=== PATIENT | male | born 1960 | race Caucasian/White ===

== ENCOUNTER → 2018-01-29 23:12 | Outpatient (CLI) | payer MEDICAID, SELFPAY ==
[2017-01-11 12:02] VITALS: BMI 32.8
[2018-01-01 07:18] VITALS: BP 177/105; BMI 37.5
== END ==
PROVIDERS: Visit Provider Internal Medicine Critical Care Medicine
DX: G47.10 Hypersomnia, unspecified (principal)
CPT/HCPCS: 95810

== ENCOUNTER → 2018-02-06 08:53 | Outpatient (CLI) | payer MEDICAID, SELFPAY ==
[2017-01-11 12:02] VITALS: BMI 32.8
[2018-01-01 07:18] VITALS: BP 177/105; BMI 37.5
[2018-02-06 09:23] VITALS: PULSE 102; PULSE 104; PULSE 111; PULSE 114; PULSE 115; PULSE 116; PULSE 131; O2SAT 94; O2SAT 95; O2SAT 96
--- NOTE | 2018-02-06 12:01 | WT_ITS ---
PSN 6 Minute Walk Test - 6 Minute Walk Test 6 Minute Walk Test: 6 Minute Walk Test PSN:6-Minute Walk Test Start: 02/06/18 09: 23 Freq: Status: Active Protocol: [id number] Document 02/06/18 09:23 RUPERTO (Rec: 02/06/18 09:26 RUPERTO [id number]) 6 Minute Walk Test Date Performed 02/06/18 Time Performed 09:00 Height 5 ft 9 in Weight: 243 lb Weight in Pounds 243.[address]: Valdo Jha Assistive device used: None Pre-test Oxygen Delivery Method Room Air Pulse Ox (%) 94 Pulse Rate (60-100 beats/min) 104 H Dyspnea Matthias Scale (0-10) 0.5 Exertion Matthias Scale (6-20) 6 1st minute Oxygen Delivery Method Room Air Pulse Ox (%) 95 Pulse Rate (60-100 beats/min) 131 H 2nd minute Oxygen Delivery Method Room Air Pulse Ox (%) 94 Pulse Rate (60-100 beats/min) 116 H 3rd minute Oxygen Delivery Method Room Air Pulse Ox (%) 94 Pulse Rate (60-100 beats/min) 114 H 4th minute Oxygen Delivery Method Room Air Pulse Ox (%) 94 Pulse Rate (60-100 beats/min) 111 H 5th minute Oxygen Delivery Method Room Air Pulse Ox (%) 94 Pulse Rate (60-100 beats/min) 116 H 6th minute Oxygen Delivery Method Room Air Pulse Ox (%) 94 Pulse Rate (60-100 beats/min) 115 H Dyspnea Matthias Scale (0-10) 3 Exertion Matthias Scale (6-20) 12 Post-test Oxygen Delivery Method Room Air Pulse Ox (%) 96 Pulse Rate (60-100 beats/min) 102 H Full Laps Walked 16 Partial Lap, Number of Tiles Walked 12 Total Distance Walked (ft) 956 - Interpretation Interpretation: The patient ambulated 956 feet over the course of 6 minutes on room air without assistive devices or breaks. Pretesting oxygen saturation was noted to be 94% on room air. With ambulation, the rebecca oxygen saturation was 94%. The patient did develop physiologic tachycardia with exertion, suggestive of deconditioning. There was no evidence of a significant exertional oxygen desaturation. - Recommendations Recommendations: There is no indication for the use of supplemental oxygen at this time.
== END ==
PROVIDERS: Visit Provider Internal Medicine Critical Care Medicine
DX: R06.09 Other forms of dyspnea (principal); F17.200 Nicotine dependence, unspecified, uncomplicated
CPT/HCPCS: 94618

== ENCOUNTER → 2018-02-07 08:56 | Outpatient (CLI) | payer MEDICAID, SELFPAY ==
[2017-01-11 12:02] VITALS: BMI 32.8
[2018-01-01 07:18] VITALS: BP 177/105; BMI 37.5
--- NOTE | 2018-02-07 13:35 | PFT ---
INTRODUCTION: Patient is a 57-year-old male currently under the care of myself that presents for pulmonary function testing secondary to a diagnosis of dyspnea. Respiratory therapy reports good patient effort reports no other concerns. Bronchodilators were used during testing. INTERPRETATION: Forced expiration spirometry demonstrates no evidence of a large airways obstructive ventilatory defect. There was no significant response to aerosolized bronchodilators, based upon strict ATS criteria. Spirogram is of good quality and plateau gradually. Body plethysmography was performed and reveals lung volumes to be within normal limits. Diffusing capacity by single breath CO is at the lower limits of normal at 72% of predicted. IMPRESSION: These pulmonary function studies are essentially within normal limits. Diffusing capacity is at the lower limits of normal currently.
== END ==
PROVIDERS: Visit Provider Internal Medicine Critical Care Medicine
DX: R06.09 Other forms of dyspnea (principal); F17.200 Nicotine dependence, unspecified, uncomplicated
CPT/HCPCS: 94060; 94726; 94729

== ENCOUNTER → 2018-02-12 20:06 | Outpatient (CLI) | payer MEDICAID, SELFPAY ==
[2017-01-11 12:02] VITALS: BMI 32.8
[2018-01-01 07:18] VITALS: BP 177/105; BMI 37.5
== END ==
PROVIDERS: Visit Provider Internal Medicine Critical Care Medicine
DX: G47.33 Obstructive sleep apnea (adult) (pediatric) (principal)
CPT/HCPCS: 95811

== ENCOUNTER → 2018-04-17 07:43 | Day surgery (SDC) | payer MEDICAID, SELFPAY ==
[2017-01-11 12:02] VITALS: BMI 32.8
--- NOTE | 2018-04-12 12:15 | RAD_ITS ---
STUDY: X-RAY CHEST REASON FOR EXAM: Male, 57 years old. Chest pain TECHNIQUE: Frontal and lateral views of the chest COMPARISON: 01/10/2017 FINDINGS: The lungs are clear. There are no pleural effusions. There is no pneumothorax. The heart is normal in size. The patient is status post sternotomy. There are degenerative changes noted in the spine. RAD/Chest PA and Lateral IMPRESSION: No acute thoracic pathology. Electronically Signed: Natalio Kapoor, at 16:52 EDT Tel , Service support ,
[2018-04-12 12:54] LABS: Prothrombin Time (Protime)PT. 13.4 SECONDS (11.7-14.9)
[2018-04-12 13:31] LABS: AST(SGOT) 61 U/L (15-37); Alanine Aminotransfer ALT/SGPT 74 U/L (16-61); Albumin, Serum 4.1 g/dL (3.2-5.0); Alkaline Phosphatase 47 U/L (45-117); Anion Gap 8 (5-15); BUN 8 mg/dL (7-18); Bilirubin, Direct 0.08 mg/dL (0.00-0.30); Calcium,Total 8.6 mg/dL (8.5-10.1); Chloride 103 mmol/L (98-107); Cholesterol 164 mg/dL (200); Creatinine, Serum 0.88 mg/dL (0.70-1.30); EST Glomerular Filtration Rate 95 mL/min (>60); Est Glom Filt Rate - Afr Amer 115 mL/min (>60); Globulin 3.4 g/dL (2.2-4.2); Glucose 97 mg/dL (74-106); High Density Lipoprotein 51 mg/dL; Potassium 4.2 mmol/L (3.5-5.1); Protein, Total 7.5 g/dL (6.4-8.2); Sodium Level 135 mmol/L (136-145); Triglycerides 91 mg/dL; Very Low Density Lipoprotein 18 mg/dL (5-40)
[2018-04-16 12:28] VITALS: BMI 37.5
[2018-04-17 08:10] LABS: Absolute Lymphocyte Count 0.86 X10^3/ul (0.83-4.51); Absolute Neutrophil Count 4.8 X10^3/uL (2.0-7.7); Basophil# 0.04 X10^3/uL; Basophil% 0.6 % (0-1); Eosinophil# 0.07 X10^3/uL; Eosinophils% 1.1 % (0-5); Hematocrit 45.4 % (40-54); Hemoglobin 15.9 g/dl (13.0-16.5); Lymphocyte # 0.86 X10^3/ul (4.0); Lymphocyte % 13.3 % (19-41); Mean Corpuscular Hgb 33.9 pg (27.0-32.0); Mean Corpuscular Volume 96.8 fL (80-94); Mean Platelet Vol. 9.3 fl (6.2-12.0); Monocyte# 0.73 X10^3/uL; Monocyte% 11.3 % (0-10); Neutrophil # 4.75 X10^3/uL (2.7-7.7); Neutrophil % 73.5 % (47-70); Platelet Count 183 K/mm3 (150-450); RBC Distribution Width CV 13.6 % (11.6-14.6); RBC Distribution Width SD 47.5 fl (35.1-43.9); Red Blood Count 4.69 M/mm3 (4.6-6.2); White Blood Count 6.5 K/mm3 (4.4-11.0)
[2018-04-17 08:20] LABS: POSITIVE COUNT NO; POSITIVE DIFFERENTIAL NO; POSITIVE MORPHOLOGY NO
[2018-04-17 11:21] LABS: Blood Gas Specimen Type VEN; VBG BASE EXCESS -2 mmol/L (-1.0-3.5); VBG Bicarbonate 23 mmol/L (22-26); VBG Oxygen Content 24 mmol/L (23-33); VBG PO2 36 mmHg (25-40); VBG SO2 70 % (50-70); VBG pCO2 36.3 mmHg (41-51); VBG pH 7.41 (7.32-7.42)
[2018-04-17 11:21] LABS: Blood Gas Specimen Type VEN; VBG BASE EXCESS -2 mmol/L (-1.0-3.5); VBG Bicarbonate 23 mmol/L (22-26); VBG Oxygen Content 24 mmol/L (23-33); VBG PO2 34 mmHg (25-40); VBG SO2 65 % (50-70); VBG pCO2 36.9 mmHg (41-51)
[2018-04-17 11:21] LABS: Base Excess -1 mmol/L (-2 to +2); Blood Gas Specimen Type ART; PO2 68 mmHG (75-100); SO2 94 % (95-99); Total Carbon Dioxide 24 mmol/L; pCO2 32.9 mmHg (35-45); pH 7.45 (7.35-7.45)
--- NOTE | 2018-04-17 11:21 | CL.D_ITS ---
Patient Name: SAVAGE VELASCO Study Date: 04/17/2018 Performing: Lj Francisco MD Ht: 68.89 inches 175 cm : 1960 Wt: 253.53 lbs 115 kg Age: 57 Gender: male BSA: 2.28 PROCEDURE(S) PERFORMED PB35-CIJ/LHC/COR/LV/CABG CLINICAL PROFILE AND INDICATIONS Indications: New Onset Angina <= 2 months, Stable Known CAD Heart Failure: None Stress/Imaging Stress/Image Study Performed: No Angina Classification Anginal Classification w/in 2 Weeks: CCS I CAD Presentations: Unstable angina. Comorbidities/Risk Factors: Current/Recent Smoker (< 1year) Hypertension Dyslipidemia Prior CABG CONCLUSIONS Triple vessel CAD of the LM, LCX and RCA Widely patent HAMILTON to LAD with large chest wall branch that feeds intercostal arteries. Widely patent SVG to OM. Previously known occluded SVG to RCA. 2 distinct lesions noted in [place] proximal RCA giving rise to small acute marginal branch. Doubtful benefit with PCI to this vessel. Adequate L to R collaterals from septal perforators to PDA. The patient has normal pulmonary hemodynamics. No evidence pericardial constrictive or restrictive physiology. RECOMMENDATIONS Management as per referring Lifestyle Director Medical therapy vs. Percutaneous Intervention of RCA leading to acute marginal branch. Pt declines a t this time. Would not pursue coiling of chest wall branch of the HAMILTON at this time. Would not pursue PCI of LM as this may compromise flow down HAMILTON to LAD. DESCRIPTION OF PROCEDURE The patient arrived to the procedure lab. The risks and benefits of the procedure as well as a full d escription of our services here and current unavailability of surgical backup were fully explained to the patient and/or their significant other prior to the catheterization. The Timeout was completed, verifying the correct patient and procedure. The patient's procedural site was prepped and draped in the usual fashion. Local anesthetic was given subcutaneously to right groin region with Lidocaine 2%. Using a modified Seldinger technique, arterial access was obtained via the right femoral artery, a 4 Fr sheath was inserted Venous access was obtained via the right femoral vein, a 7Fr sheath was insert ed. Left Ventriculography was performed in BRADY projection using a 4 Fr. Pigtail catheter. A 7Fr therm al dilution catheter was inserted and right heart pressures were recorded, it was then advanced to PA position for cardiac outputs. Thermal dilution cardiac outputs were then recorded. O2 saturations we re then obtained. The Thermal dilution catheter was then removed. LV to AO pullback pressures were th en recorded. Left Coronary Artery selective angiography was performed in multiple views using a 4 Fr. JL5 catheter. Right Coronary Artery selective angiography was then performed in multiple views using a 4 Fr. 3DRC catheter. Saphenous Vein graft to the OM 1 selective angiography was performed in multi ple views using a 4 Fr. 3DRC catheter. Left internal mammary artery graft to the LAD selective angiog scooby was performed in multiple views using a 4 Fr. 3DRC catheter.The arterial sheath was pulled and manual compression applied until hemostasis is achieved. CORONARY ANGIOGRAPHY DOMINANCE: Right Dominant LEFT HEART ASSESSMENT Left Ventricular Ejection Fraction: by LV Gram 65 % Normal LV wall motion Normal Left Ventricular systolic function Normal Left Ventricular End Diastolic Pressure RIGHT HEART ASSESSMENT Thermal CO: 7.99 Thermal CI: 3.5 Eduarda CO: 5.39 Eduarda CI: 2.36 PW: 05/30 2 PA: /5 15 RV: 30/-2 3 RA: 01/25 0 PVR: 130 Aortic Valve Area: >3.50 Aortic Valve Index: 1.54 Aortic Valve Mean Gradient: 24.3 Mitral Valve Area: >3.50 Mitral Valve index: 1.54 Mitral Valve Mean Gradient: 18.8 LEFT MAIN: 75 % Stenosis LEFT ANTERIOR DECENDING ARTERY: Mild luminal irregularities less than 30% CIRCUMFLEX ARTERY: MID CIRC: is occluded RIGHT CORONARY ARTERY: MID RCA: is occluded GRAFTS: HAMILTON graft to the LAD is patent Saphenous Vein graft to the Mid CIRC is patent Saphenous Vein graft to the RCA is totally occluded COLLATERAL FLOW: Collateral flow from Left to Right COMPLICATIONS No Complications PROCEDURE MEDICATIONS Versed 1 mg IV SUMMARY OF HEMODYNAMIC DATA Time AIR REST ECG 08:11:55 RA 3/2 (0) 10:44:37 RV 30/-2, 3 10:44:55 PW 05/30 (2) PV 10:45:31 PA 20/04 (15) PA 10:45:45 LV 145/-27, 4 10:50:13 LV 146/-27, 4 10:50:20 LV 155/-24, 7 10:50:42 PW 07/03 (5) 10:50:42 LV 146/-24, 4 10:51:15 RV 29/-3, 1 10:51:15 LV 149/-25, 4 10:51:21 RV 29/-3, 1 10:51:21 LVp 163/-27, 7 10:54:26 AOp 163/79 (113) 10:54:31 AO 130/78 (102) SA 10:56:12 Valve Area (c P-P/ms Time AIR REST Mitral 3.50 18.8 mn/129 ms 10:50:42 Aortic 3.50 24.3 mn/114 ms 10:54:26 Type SV CO (l/m) CI (l/m/ HR Time AIR REST Thermal 99.90 7.99 3.50 80 08:11:55 Eduarda 67.40 5.39 2.36 80 08:11:55 Label % O2 Pres/Loc Time AIR REST AO 94 PV 11:00:57 PA 68 PA 11:01:10 Signed By Lj Francisco MD On 04/17/2018 11:20:23 Lj Francisco MD
== END ==
PROVIDERS: Visit Provider Internal Medicine Cardiovascular Disease
DX: I25.708 Atherosclerosis of coronary artery bypass graft(s), unspecified, with other forms of angina pectoris (principal); R94.39 Abnormal result of other cardiovascular function study; E66.9 Obesity, unspecified; Z68.37 Body mass index [BMI] 37.0-37.9, adult; E78.5 Hyperlipidemia, unspecified; I10 Essential (primary) hypertension; Z95.1 Presence of aortocoronary bypass graft; Z79.82 Long term (current) use of aspirin; Z79.899 Other long term (current) drug therapy; F17.200 Nicotine dependence, unspecified, uncomplicated
CPT/HCPCS: 36415; 71046; 80048; 80061; 80076; 82803; 85025; 85610; 93461; 99152; 99153; J7040; J7050; Q9967; A4216; C1751; C1769; C1894

== ENCOUNTER → 2018-04-25 14:03 | Outpatient (CLI) | payer MEDICAID, SELFPAY ==
[2017-01-11 12:02] VITALS: BMI 32.8
--- NOTE | 2018-04-25 14:05 | ECHOD_ITS ---
Reason For Study: S/P CABG Procedure This was a 2D Doppler, Color Flow transthoracic echocardiogram. Contrast injection was performed. Exam performed in department. Left Ventricle Normal size and thickness. The estimated ejection fraction is 65 %. Stage 2 diastolic dysfunction. No regional wall motion abnormalities noted. Right Ventricle Mildly dilated right ventricle. Normal systolic function. Atria Normal left atrium. Normal right atrium. Normal atrial septum. Mitral Valve The mitral valve is structurally normal. No prolapse or stenosis seen. Tricuspid Valve Normal tricuspid valve. Trivial tricuspid valve insufficiency. Right ventricular systolic pressure estimated to be 28 mmHg. Aortic Valve Trisinus/trileaflet aortic valve. Pulmonic Valve Normal pulmonic valve. Great Vessels Normal aortic root. Normal arch. Normal inferior vena cava. Inferior vena cava collapse with sniff. Pericardium/Pleural No pericardial effusion. Medication 22 gauge I.V. with prn adaptor inserted into right arm. Diluted definity 4ml given slow IV push to enhance endocardial definition. MMode/2D Measurements & Calculations LVIDd: 3.9 cm IVSd: 0.99 cm Ao root diam: 3.5 cm LVIDs: 2.6 cm LVPWd: 0.82 cm LA dimension: 4.0 cm RVDd: 4.1 cm FS: 32.2 % LAV(MOD-bp): 49.5 ml EDV(MOD-sp4): 100.7 ml EDV(MOD-sp2): 72.3 ml LAV(MOD-bp) Indexed: 21.6 ml/m2 ESV(MOD-sp4): 28.8 ml EF(MOD-sp2): 55.9 % LAV(MOD-sp2): 52.6 ml EF(MOD-sp4): 71.4 % LAV(MOD-sp4): 45.6 ml SV(MOD-sp4): 71.9 ml SV(MOD-sp2): 40.4 ml LA A4 area: 16.9 cm2 RA A4 area: 14.0 cm2 Doppler Measurements & Calculations MV E max lester: 104.0 cm/sec Lat Peak E' Lester: 12.1 cm/sec Med Peak E' Lester: 7.8 cm/sec MV A max lester: 72.6 cm/sec E/E' lat: 8.6 E/E' med: 13.3 MV E/A: 1.4 Ao V2 max: 126.7 cm/sec LV V1 max: 105.0 cm/sec PA V2 max: 103.4 cm/sec Ao max P.4 mmHg LV V1 max P.4 mmHg PI end-d lester: 122.6 cm/sec TR max lester: 240.6 cm/sec TR max P.2 mmHg Interpretation Summary The estimated ejection fraction is 65 %. Stage 2 diastolic dysfunction. Mildly dilated right ventricle. Trivial tricuspid valve insufficiency. Right ventricular systolic pressure estimated to be 28 mmHg. Compared to echo rport dated 01/11/2017, LV function and wall motion abnormalities have normalized. Ordering Physician: Lj Francisco Referring Physician: [facility] Performed By: Trinity Landin, CHRISTIE, RVT
== END ==
PROVIDERS: Visit Provider Internal Medicine Cardiovascular Disease
DX: I25.798 Atherosclerosis of other coronary artery bypass graft(s) with other forms of angina pectoris (principal); R06.09 Other forms of dyspnea
CPT/HCPCS: 93306; Q9957; A4216; C8929

== ENCOUNTER 2018-12-13 09:32 | Emergency (ER) | payer MEDICAID, SELFPAY ==
[2017-01-11 12:02] VITALS: BMI 32.8
[2018-11-22 10:11] VITALS: BMI 36.6
[2018-12-13 09:34] VITALS: BP 158/80; PULSE 85; RESP 18; TEMP 36.4; O2SAT 98; BMI 37.0
--- NOTE | 2018-12-13 09:44 | RAD_ITS ---
STUDY: X-RAY - RIGHT FOOT CLINICAL: Male, 57 years old. 4 day history of pain along the first metatarsal phalangeal joint. TECHNIQUE: 3 view(s) of the foot. COMPARISON: None. FINDINGS: There is an enthesophyte involving the posterior superior calcaneus at the site of insertion of the Achilles tendon. Small plantar spur. Normal visualized subtalar, talonavicular, calcaneocuboid, tarsal and tarsometatarsal articulations. Normal metatarsi. There is degenerative arthrosis of the metatarsophalangeal joint of the hallux with a hallux valgus deformity. Normal tibial and fibular sesamoid bones. Normal interphalangeal joint of the great toe. Normal phalanges of the great toe. Normal second through fifth metatarsophalangeal joints. Normal interphalangeal joints and phalanges of the lesser toes. The soft tissue structures are unremarkable. RAD/Foot min 3 Views IMPRESSION: Degenerative changes at the first metatarsophalangeal joint. Electronically Signed: Jake Oquendo MD at 10:11 EST Tel [phone], Service support ,
[2018-12-13] MEDS: HYDROcodone Bitartrate/Apap 5/325 Tablet PO (09:51)
--- NOTE | 2018-12-13 10:33 | ED.DCSUM_ITS ---
- ER Visit Summary Date of Service: 12/13/18 Chief Complaint: Foot pain History of Present Illness: The patient is a 57 M with right foot pain increasing over the past 3-4 days. The pain is in his right foot and starts near the base of his great toe and radiates up into the dorsal aspect of the medial side of his foot. He had similar symptoms in the past on his left foot and was told it was from arthritis. He denies any history of gout. Denies any history of skin breaks or cellulitis in the area, but he has noticed some redness and warmth. He denies any history of DVTs. He currently takes aspirin and Plavix for history of coronary disease. No fevers or systemic symptoms. Physical Examination: Afebrile and vital signs unremarkable. Alert and oriented. No acute distress. Inspection of his right foot shows some erythema and very mild edema proximal to the right great toe over his medial and dorsal foot, the distal half of his foot. Toenail appears unremarkable. Skin is intact. He has no deformities. Good range of motion. Good capillary refill and pulses. Calves soft and supple. Test Results: X-rays show degenerative changes. Emergency Department Course and Treatment: Patient may have arthritis. He may be developing cellulitis. Based on his exam, I felt that gout and septic arthropathy would be less likely. Toenails okay. Nothing to suggest DVT. Circulation good. X-rays show degenerative changes. I will have him continue his anti- inflammatories. We will add a short course of Percocet. He tolerated this well in the past and had only one prescription in 2017. We will also cover for cellulitis with antibiotics. Monitor for new or worsening issues. Return for new or worsening issues. Treatment Plan: Discharge Disposition: Discharge Impression: 1. Right foot pain This note was generated with [employer] dictation software. It may contain incorrect words, spelling, and punctuation that were not noted in review of the chart prior to signing ED Disposition - Plan for ED Patient: Chief Complaint: Lower Extremity Injury Referrals: Nelson Boone MD [Primary Care Provider] -
--- NOTE | 2018-12-13 10:35 | ED.DEP ---
ED Disposition - Plan for ED Patient: Chief Complaint: Lower Extremity Injury Instructions: ED Infec Skin Cellulitis Prescriptions: Oxycodone HCl/Acetaminophen [Percocet 5/325] 1 tab PO Q6H PRN PRN 3 Days #12 tab PRN Reason: Pain Cephalexin [Keflex] 500 mg PO Q6 #28 cap Smz/Tmp Ds [Bactrim Ds] 1 tab PO BID #14 tab Referrals: Nelson Boone MD [Primary Care Provider] -
--- OUTSIDE RECORDS SUMMARY | 2019-02-16 17:16 | XMS RPT_ITS ---
:1960 Author Organization OHIP Support Name Relationship Address Phone BONTEMPT, KAREN Unavailable [address] + [place] [address] UE Unavailable Unavailable Unavailable BONTEMPT, KAREN Unavailable [address] + [place] [address] UE Unavailable Unavailable Unavailable BONTEMPT, KAREN Unavailable [address] + [place] [address] UE Unavailable Unavailable Unavailable BONTEMPT, KAREN Unavailable [address] + [place] [address] UE Unavailable Unavailable Unavailable BONTEMPT, KAREN Unavailable [address] + [place] [address] UE Unavailable Unavailable Unavailable BONTEMPT, KAREN Unavailable [address] + [place] [address] UE Unavailable Unavailable Unavailable BONTEMPT, KAREN Unavailable [address] + [place] [address] UE Unavailable Unavailable Unavailable BONTEMPT, KAREN Unavailable [address] + [place] [address] UE Unavailable Unavailable Unavailable BONTEMPT, KAREN Unavailable [address] + [place] [address] UE Unavailable Unavailable Unavailable BONTEMPT, KAREN Unavailable [address] + [place] [address] UE Unavailable Unavailable Unavailable BONTEMPT, KAREN Unavailable [address] + [place] [address] UE Unavailable Unavailable Unavailable BONTEMPT, KAREN Unavailable [address] + [place] [address] UE Unavailable Unavailable Unavailable BONTEMPT, KAREN Unavailable [address] + [place] [address] UE Unavailable Unavailable Unavailable BONTEMPT, KAREN Unavailable [address] + [place] [address] UE Unavailable Unavailable Unavailable BONTEMPT, KAREN Unavailable [address] + [place] [address] UE Unavailable Unavailable Unavailable BONTEMPT, KAREN Unavailable [address] + [place] [address] UE Unavailable Unavailable Unavailable BONTEMPT, KAREN Unavailable [address] + [place] [address] UE Unavailable Unavailable Unavailable BONTEMPT, KAREN Unavailable [address] + [place] [address] UE Unavailable Unavailable Unavailable BONTEMPT, KAREN Unavailable [address] + [place] [address] UE Unavailable Unavailable Unavailable BONTEMPT, KAREN Unavailable [address] + [place] [address] UE Unavailable Unavailable Unavailable BONTEMPT, KAREN Unavailable [address] + [place] [address] UE Unavailable Unavailable Unavailable BONTEMPT, KAREN Unavailable [address] + [place] [address] UE Unavailable Unavailable Unavailable BONTEMPT, KAREN Unavailable [address] + [place] [address] UE Unavailable Unavailable Unavailable BONTEMPT, KAREN Unavailable [address] + [place] [address] UE Unavailable Unavailable Unavailable Care Team Providers Name Role Phone LIZ CARMONA (TAX PROFESSIONAL) Attending Unavailable MICHAEL HERNANDEZ Attending Unavailable MICHAEL HERNANDEZ Referring Unavailable MARYMICHAEL STERLING Referring Unavailable MARYMICHAEL E Referring Unavailable MARYMICHAEL STERLING E Referring Unavailable MICHAEL HERNANDEZ Attending Unavailable MICHAEL HERNANDEZ Referring Unavailable MICHAEL HERNANDEZ Referring Unavailable MICHAEL HERNANDEZ Referring Unavailable RUBI TRIANA Attending Unavailable MICHAEL HERNANDEZ Referring Unavailable RUBI TRIANA Admitting Unavailable RUBI TRIANA Attending Unavailable RUBI TRIANA Referring Unavailable MICHAEL HERNANDEZ Attending Unavailable MICHAEL HERNANDEZ Referring Unavailable GARDENIA CANO (WILLAM) Attending Unavailable RUBI TRIANA Referring Unavailable Nahomy Pino Attending Unavailable [place], [place] Referring Unavailable Lj Hurst Attending Unavailable Nelson Boone Primary Care Unavailable Waleska Abreu Attending Unavailable Fito Anna.Debora Attending Unavailable Start[place]man, [place] Referring Unavailable Start[place]man, [place] Primary Care Unavailable Valdo Fito Jha.O. Attending Unavailable Start[place], [place] Primary Care Unavailable Enedina AnnaO. Attending Unavailable Valdo Fito Jha.Debora Referring Unavailable Start[place]man, [place] Primary Care Unavailable Valdo Jha D.O. Attending Unavailable Fito Anna.O. Referring Unavailable Start[place]man, [place] Primary Care Unavailable Katia Chen Attending Unavailable Lj Francisco Attending Unavailable Start[place], [place] Referring Unavailable Start[place]man, [place] Primary Care Unavailable Fito Anna.Jackson. Attending Unavailable Start[place]man, [place] Primary Care Unavailable Lj Francisco Attending Unavailable Start[place]man, [place] Referring Unavailable Start[place]man, [place] Primary Care Unavailable Nahomy Pino Attending Unavailable Start[place]man, [place] Referring Unavailable Start[place]man, [place] Primary Care Unavailable Lj Francisco Attending Unavailable Start[place]man, [place] Referring Unavailable Start[place]man, [place] Primary Care Unavailable Lj Francisco Attending Unavailable Start[place]man, [place] Referring Unavailable Start[place]man, [place] Primary Care Unavailable Lj Francisco Attending Unavailable Start[place]man, [place] Primary Care Unavailable Lj Francisco Referring Unavailable Katia Chen Attending Unavailable Nahomy Pino Attending Unavailable [place], [place] Referring Unavailable Lj Francisco Attending Unavailable Lj Francisco Referring Unavailable [place], [place] Primary Care Unavailable Lj Francisco Attending Unavailable Lj Francisco Attending Unavailable Lj Francisco Referring Unavailable Nahomy Pino Attending Unavailable [place], [place] Referring Unavailable Nahomy Pino Attending Unavailable [place], [place] Referring Unavailable Fito Anna.Jackson. Attending Unavailable Fito Anna.O. Referring Unavailable Valdo Jha D.O. Attending Unavailable Fito nAna.Debora Referring Unavailable PROBLEMS PROBLEMS DATE TYPE CONDITION / CODE ATTENDING STATUS SOURCE 12/13/2018 Unknown M79.671 - Pain in Lj Hurst Active [facility] right foot / Community M79.671(ICD-10) Hospital Repository 11/22/2018 Unknown R06.09 - Other forms Pino Active [place] of dyspnea / Nahomy Community R06.09(ICD-10) Hospital Repository 10/10/2018 Active Presence of coronary KAMILAH, Active Young angioplasty implant RUBI [facility] Main and graft / [place] Z95.5(ICD-10) Repository 08/29/2018 Active Atherosclerotic heart NA Active Irene disease of [facility] Main coronary artery [place] without angina Repository pectoris / I25.10(ICD-10) 08/29/2018 Active Essential (primary) NA Active Irene hypertension / [facility] Main I10(ICD-10) [place] Repository 04/17/2018 Unknown I25.10 - Nolan Lj Active [facility] Atherosclerotic heart Community disease of [facility] coronary artery Repository without angina pectoris / I25.10(ICD-10) 04/17/2018 Unknown E78.5 - Lj Francisco Active [facility] Hyperlipidemia, Community unspecified / Hospital E78.5(ICD-10) Repository 04/12/2018 Unknown I10 - Essential Lj Francisco Active [place] (primary) Community hypertension / Hospital I10(ICD-10) Repository 04/12/2018 Unknown I25.798 - Lj Francisco Active [facility] Atherosclerosis of Community other coronary artery Hospital bypass graft(s) with Repository other forms of angina pectoris / I25.798(ICD-10) 04/12/2018 Unknown Z95.1 - Presence of Lj Francisco Active [facility] aortocoronary bypass Community graft / Z95.1(ICD-10) Hospital Repository 04/12/2018 Unknown I50.9 - Heart Lj Francisco Active [place] failure, unspecified Community / I50.9(ICD-10) Hospital Repository 04/12/2018 Unknown Z98.890 - Other Lj Francisco Active [facility] specified Community postprocedural states Hospital / Z98.890(ICD-10) Repository 01/01/2018 Unknown F17.200 - Nicotine Valdo Jha Active [facility] dependence, D.O. Community unspecified, Hospital uncomplicated / Repository F17.200(ICD-10) PROCEDURES PROCEDURES No Procedure Records FoundRESULTS RESULTS EMERGENCY DEPARTMENT Observed: 12/13/2018 Status: F Source: [place] SUMMARY 3:45 PM [facility] [place] REPOSITORY [facility] Medical Records Department [address] [place] [address] Emergency Department Summary 12/13/18 1028 MR#: [id number] Acct: [id number] Name: SAVAGE ANDERS II Rep #: [id number] : 1960 57 From: Lj Hurst MD PCP: Nelson Boone MD Status: DEP ER - ER Visit Summary Date of Service: 12/13/18 Chief Complaint: Foot pain History of Present Illness: The patient is a 57 M with right foot pain increasing over the past 3-4 days. The pain is in his right foot and starts near the base of his great toe and radiates up into the dorsal aspect of the medial side of his foot. He had similar symptoms in the past on his left foot and was told it was from arthritis. He denies any history of gout. Denies any history of skin breaks or cellulitis in the area, but he has noticed some redness and warmth. He denies any history of DVTs. He currently takes aspirin and Plavix for history of coronary disease. No fevers or systemic symptoms. Physical Examination: Afebrile and vital signs unremarkable. Alert and oriented. No acute distress. Inspection of his right foot shows some erythema and very mild edema proximal to the right great toe over his medial and dorsal foot, the distal half of his foot. Toenail appears unremarkable. Skin is intact. He has no deformities. Good range of motion. Good capillary refill and pulses. Calves soft and supple. Test Results: X-rays show degenerative changes. Emergency Department Course and Treatment: Patient may have arthritis. He may be developing cellulitis. Based on his exam, I felt that gout and septic arthropathy would be less likely. Toenails okay. Nothing to suggest DVT. Circulation good. X-rays show degenerative changes. I will have him continue his anti-inflammatories. We will add a short course of Percocet. He tolerated this well in the past and had only one prescription in 2017. We will also cover for cellulitis with antibiotics. Monitor for new or worsening issues. Return for new or worsening issues. Treatment Plan: Discharge Disposition: Discharge Impression: 1. Right foot pain This note was generated with [employer] dictation software. It may contain incorrect words, spelling, and punctuation that were not noted in review of the chart prior to signing ED Disposition - Plan for ED Patient: Chief Complaint: Lower Extremity Injury Referrals: Nelson Boone MD [Primary Care Provider] - What to do if you have Problems For any increased pain, shortness of breath, bleeding, nausea or vomiting, chest pain, or any unexpected problems, contact your Primary Care Provider. Call [facility] ([phone]) or report to the closest Emergency Room. Call 911 if necessary. 12/13/18 1547 <Electronically signed by Lj Hurst MD> Date Lj Hurst MD Cosigner Signature (If Indicated): Date CC: Nelson Boone MD DISCHARGE INSTRUCTION Observed: 12/13/2018 Status: F Source: [place] 3:45 PM [facility] REPOSITORY [facility] Medical Records Department [address] [place] [address] Discharge Instruction 12/13/18 1035 MR#: [id number] Acct: [id number] Name: SAVAGE ANDERS II Rep #: [id number] : 1960 57 From: Lj Hurst MD PCP: Nelson Boone MD Status: DEP ER ED Disposition - Plan for ED Patient: Chief Complaint: Lower Extremity Injury Instructions: ED Infec Skin Cellulitis Prescriptions: Oxycodone HCl/Acetaminophen [Percocet 5/325] 1 tab PO Q6H PRN PRN 3 Days #12 tab PRN Reason: Pain Cephalexin [Keflex] 500 mg PO Q6 #28 cap Smz/Tmp Ds [Bactrim Ds] 1 tab PO BID #14 tab Referrals: Nelson Boone MD [Primary Care Provider] - What to do if you have Problems For any increased pain, shortness of breath, bleeding, nausea or vomiting, chest pain, or any unexpected problems, contact your Primary Care Provider. Call [facility] ([phone]) or report to the closest Emergency Room. Call 911 if necessary. 12/13/18 1547 <Electronically signed by Lj Hurst MD> Date Lj Hurst MD Cosigner Signature (If Indicated): Date CC: Nelson Boone MD FOOT MIN 3 VIEWS Observed: 12/13/2018 Status: F Source: [place] 9:45 AM [facility] [place] REPOSITORY [facility] Imaging Services [address] [place] [address] Foot min 3 Views MR#: [id number] Acct: [id number] Name: SAVAGE ANDERS II Rep #: [id number] : 1960 M 57 From: Jkae Oquendo MD PCP: Nelson Boone MD Status: REG ER Study: Foot min 3 Views Date of Exam: 12/13/18 Exam# [id number] Ordering Dr: Lj Hurst MD STUDY: X-RAY - RIGHT FOOT CLINICAL: Male, 57 years old. 4 day history of pain along the first metatarsal phalangeal joint. TECHNIQUE: 3 view(s) of the foot. COMPARISON: None. FINDINGS: There is an enthesophyte involving the posterior superior calcaneus at the site of insertion of the Achilles tendon. Small plantar spur. Normal visualized subtalar, talonavicular, calcaneocuboid, tarsal and tarsometatarsal articulations. Normal metatarsi. There is degenerative arthrosis of the metatarsophalangeal joint of the hallux with a hallux valgus deformity. Normal tibial and fibular sesamoid bones. Normal interphalangeal joint of the great toe. Normal phalanges of the great toe. Normal second through fifth metatarsophalangeal joints. Normal interphalangeal joints and phalanges of the lesser toes. The soft tissue structures are unremarkable. RAD/Foot min 3 Views IMPRESSION: Degenerative changes at the first metatarsophalangeal joint. Electronically Signed: Jake Oquendo MD at 10:11 EST Tel [phone], Service support , CC: Nelson Boone MD; Lj Hurst MD Honey Extractor: Signed PULMONARY VISIT REPORT Observed: 11/22/2018 Status: F Source: [place] 2:49 PM [facility] REPOSITORY [facility] Pulmonary Medicine [address] [place] [address] OFFICE VISIT Date of Service: 11/22/18 MR#: [id number] Acct: [id number] Name: SAVAGE ANDERS II Rep #: [id number] : 1960 Provider: Nahomy Pino Age/Sex: 57/M Location: [facility] [place] Status: Signed Assessment AND Plan 1. Restless legs syndrome (RLS) G25.81 Plan Stable. Continue current dose of ropinirole. Follow-up with Dr. Jha in 6 months. 2. DAVID (obstructive sleep apnea) G47.33 Plan Patient is using and benefiting from Pap therapy. No indication for titration study at this time. Continue to encourage weight loss. Contact the office for any new or worsening symptoms in the meantime. Follow-up in 6 months. 3. Class 2 severe obesity due to excess calories with serious comorbidity and body mass index (BMI) of 36.0 to 36.9 in adult E66.01 Plan Continue to encourage weight loss. 4. Cigarette nicotine dependence in remission F17.211 Plan Aerated. A 12 minute, face to face discussion occurred with the patient regarding smoking cessation. Risks of continued tobacco abuse was covered such as heart disease, stroke, cancer, and emphysema, among others. The many health benefits quitting, was discussed and the patient was educated on the fact that smokers lose an average of 10 minutes of life for every cigarette smoked. We discussed the pathophysiology of smoking addiction and its dual addictive components of nicotine addiction and psychological addiction. Nicotine replacement was discussed. We also talked about medications that may be helpful such as Bupropion (Wellbutrin) or Varenicline (Chantix). Advise was also offered on preoccupying the mind during trigger times with activities such as chewing gum, sucking on hard candy or utilizing their hands with an activity such as drawing. Currently the patient is smoking one quarter Ppd. At this time, SAVAGE elects to quit cold turkey, however I suspect he remains in the pre-contemplative stage. We will continue to monitor the tobacco abuse and encourage cessation. You may call the free hotline 0-785-BAFXNOW. People who use this line are THREE times more likely to remain smoke free. Plan Detail Other Orders Orders: Follow Up 6 Months (DMB) HPI 3 M FU: Chief Complaint: None HPI Comments Details: This is a 57 year old M, here to follow up for sleep apnea. Current use of pressure support therapy is on average of 6 hours per night with current settings of 14/10 cmH2O. SAVAGE denies any daytime somnolence, dry mouth in the morning, nocturia, snoring through the mask, morning headaches or difficulty with mask leaks. SAVAGE reports feeling rested in the morning and is benefitting from current therapy. Compliance report was reviewed and shows 83% compliance, AHI is controlled at an average of 1.6 events per hour and leaks do not appear to be a consistent problem. He denies any cough, sputum production or hemoptysis. He denies any shortness of breath during conversation, at rest or even on exertion. He denies any fever, chills or body aches. He denies any wheezing, chest tightness, chest pain or palpitations. He is not currently on any inhalers. States that he previously was tried on a rescue inhaler but it did not provide him with any relief use is 1. Unfortunately, he continues to smoke 5-7 cigarettes daily. He has not been seen in the ED or urgent care for respiratory illnesses since his last office visit. He has not required any antibiotics or prednisone for any breathing problems. Intake Vital Signs12/28/18 Height 5 ft 9 in 11/22/18 Weight: 248 lb 11/22/18 Body Mass Index (BMI) 36.6 11/22/18 Blood Pressure 146/88 H Intake Visit Reasons: 3 M FU [facility] [place] [place] Vendor: [employer] Accompanied by: Self Allergies No Known Allergies Allergy (Verified 11/22/18 09:24) Medications Aspirin 81 mg PO DAILY@0800 10/27/16 [History Confirmed 11/22/18] Ergocalciferol [Vitamin D] 50,000 unit PO PEREZ 07/25/17 [History Confirmed 11/22/18] atorvastatin 80 mg tablet 80 mg PO QHS #30 tab 12/03/17 [Rx Confirmed 11/22/18] nitroglycerin 0.4 mg sublingual tablet 0.4 mg SUBLINGUAL Q5M PRN #25 tab 04/11/18 [Rx Confirmed 11/22/18] Automatic Blood Pressure Machine #1 ea 04/12/18 [Rx Confirmed 11/22/18] carvedilol 6.25 mg tablet 6.25 mg PO BID #60 tab 04/12/18 [Rx Confirmed 11/22/18] furosemide 40 mg tablet 40 mg PO QDAY #30 tab 04/12/18 [Rx Confirmed 11/22/18] losartan 50 mg tablet 50 mg PO QDAY #30 tab 04/12/18 [Rx Confirmed 11/22/18] Isosorbide Mononitrate [Imdur] 120 mg PO .COMPLEX 04/16/18 [History Confirmed 11/22/18] ropinirole 0.5 mg tablet 0.5 mg PO QHS #60 tab 06/18/18 [Rx Confirmed 11/22/18] Disability Placard #1 ea 07/19/18 [Rx Confirmed 11/22/18] clopidogrel 75 mg tablet 75 mg PO .COMPLEX #90 tab 07/19/18 [Rx Confirmed 11/22/18] ropinirole 2 mg tablet 2 mg PO QHS #30 tab 09/23/18 [Rx Confirmed 11/22/18] PFSH Medical History Atherosclerosis of other coronary artery bypass graft(s) with other forms of angina pectoris (Chronic) Atherosclerosis of coronary artery of [place] heart without angina pectoris (Acute) Obesity (Chronic) Hyperlipidemia (Chronic) Nicotine dependence in remission (Chronic) Hypertension (Chronic) Abnormal stress test (Resolved) Surgical History History of left heart catheterization (Chronic 04/17/18) Presence of aortocoronary bypass graft (Chronic 01/15/17) Family History Father Heart disease Mother CVA (cerebral vascular accident) Social History Smoking Status: Light Smoker (<10/day) second hand exposure: Yes alcohol intake: current alcohol intake frequency: a few times a week Alcohol type: beer substance use type: does not use caffeine: No what type of physical activity do you participate in: other details: cardiac rehab frequency: 3-4 times per week Review of Systems Const CONSTITUTIONAL: Positive fatigue; negative anorexia, body ache, chills, daytime sleepiness, fever(s), night sweats, oral thrush, stops breathing during sleep, weight loss, sleeping in chair, weight loss, weight gain, frequent colds, seasonal allergies, other, headache(s) or orthopnea EETM Ear Nose Throat Mouth: Positive hearing normal; negative hard of hearing, hoarseness, dry mouth in morning, change in vision, itchy eyes, eye pain, swallowing Difficulty, ear pain, nose bleed, headache(s), mouth pain, nasal congestion, nasal discharge, post nasal drip, sinus pain, sinus pressure, sore throat or other Cardio Cardiovascular: Negative chest pain, chest pain at rest, chest pain with activity, irregular heart rhythm, edema, shortness of breath when lying down, palpitations, murmur or other Resp Respiratory: Positive as per HPI and shortness of breath shortness of breath: Positive with activity; negative pain with cough, wheezing, chest congestion, cough, chest tightness, pain on inspiration, inhalers, increase use of rescue inhalers, snoring, apnea or other Gastro Gastrointestional: Negative bloody stools, change in appetite, difficulty swallowing, reflux, hematemesis, melena stool, loose stool, constipation or other Genitourinary: Negative blood in urine, nocturia, pain with urination or other Musc Musculoskeletal: Negative body pain, back pain, neck pain or other Skin/Breast Skin/Breast: Negative dry skin, itching, rash, unusual bruising, breast lump or other Neuro Neurological: Negative restless legs, confusion, weakness or other Psych Psychocological: Negative abnormal sleep pattern, anxiety, thoughts of hurting self/others, hopelessness or other Lymph Lymphatic: Negative easy bleeding, easy bruising, swollen lymph nodes or other Exam Const Constitutional: Positive conversant, cooperative, in no acute respiratory distress, healthy appearing, well developed, well nourished, good hygiene, obese and appears older than stated age Head Head: Positive normocephalic and atraumatic; negative cyanosis of lips/distal nose Eyes Eye: Positive clear conjunctiva; negative nystagmus or scleral abnormality Ears Ear: Positive hearing normal and external ears normal; negative hard of hearing Nose Nose: Positive external nose normal and no nasal discharge; negative epistaxis Mouth Mouth: Positive oral mucosae normal, no lesions, dentures and crowded posterior oropharynx; negative post nasal drip, malodorous breath or oral thrush present Mallampati Score: III: Mallampati Score Neck Neck: Positive normal visual inspection, full ROM, trachea midline, thick neck and male neck greater than 43 cm (17 in); negative lymphadenopathy, JVD or tender Chest Wall Chest: Positive symmetric chest movement and increased A/P diameter Resp lung sounds: Positive clear to auscultation, good air exchange, normal expiratory time and normal respiratory effort; negative diminished, wheezes, rhonchi, rales, dullness to percussion or wheeze present on forced exhalation Cardio Cardiac: Positive regular rate, regular rhythm, S1 normal and S2 normal; negative murmur GI GI: Positive normal to inspection and obese; negative distended Genitourinary: Positive deferred Musc Musculoskeletal: Positive steady gait and ROM normal; negative kyphosis or scoliosis Skin Pulmonary Skin Exam: Positive intact; negative rash Pulses Pulse: Yes pulses normal x4 extremities Extremities Extremities: Yes capillary refill normal, No clubbing, No cyanosis, No edema Neuro Neurologic: Yes conversant, Yes no focal neuro deficits, Yes cooperative, Yes normal cognition, Yes normal coordination, Yes normal concentration, Yes understands questions, No tremor Lymph Lymphatic: No lymphadenopathy, No tenderness, No cervical adenopathy Psych Appearance: Positive grossly normal, eye contact and well kempt Mental Status: Positive mental status grossly normal Mood: Positive congruent mood Affect: Positive normal affect Office Procedures Smoking Cessation Time Spent greater than 10 minutes: Yes Pulmonary Procedure Smoking Cessation Education: Yes education provided, greater than 10 minutes, expresses understanding, continue to encourage smoking cessation and needs reinforcement Coding Level of Care Code Off vis,est,level 3 Diagnoses Restless legs syndrome (RLS) G25.81 DAVID (obstructive sleep apnea) G47.33 Class 2 severe obesity due to excess calories with serious comorbidity and body mass index (BMI) of 36.0 to 36.9 in adult E66.01 Body mass index: BMI 36.0-36.9 Obesity classification: adult class 2 (BMI 35 - 39.9) Obesity type: due to excess calories Serious obesity comorbidity presence: with serious comorbidity Cigarette nicotine dependence in remission F17.211 Nicotine product type: cigarettes Additional Codes Time Spent - greater than 10 minutes: Yes ([id number]) 11/22/18 1449 <Electronically signed by Nahomy DAVILA> Date Nahomy DAVILA Cosigner Signature: Date (if applicable) CC: Joel LINOOV Observed: 10/30/2018 Status: COMPLETED Source: [place] 11:00 AM [facility] REPOSITORY Office Visit (CATHMN) SAVAGE ANDERS ([id number]) 1960 M Date Time Provider Department 10/30/18 11:00 AM GARDENIA CANO (PA) During your visit today, we recorded the following information about you: Pulse Blood pressure Weight Height 88/minute 145/86 110.2 kg 1.753 m Gardenia Cano PA-C 10/30/2018 12:14 PM Signed [facility] [place] [facility] Department of Cardiovascular Medicine SECTION OF INTERVENTIONAL CARDIOLOGY OUTPATIENT VISIT DATE October 30, 2018 OUTPATIENT VISIT TYPE ESTABLISHED PRIMARY CARE PHYSICIAN: No PCP CHIEF COMPLAINT: Patient presents with: Follow Up HISTORY OF PRESENT ILLNESS: Mr. Anders is a 57 year old male with a history of ASHD status post CABGx3 (HAMILTON-LAD, SVG-OM1, SVG-PDA (occluded with L-R collaterals) 01/12, hypertension, hyperlipidemia, tobacco use and DAVID(CPAP), who presents today for follow-up visit status post successful PCI to the RCA with a 3.0 x 32 Synergy EES on 10/10/18. The patient follows with Dr. Hernandez, last seen 09/30/18, per office note: He continues to have disabling shortness of breath, although his angina has improved slightly since the adjustment in his nitrates. He has taken fewer sublingual nitroglycerin. He is unable to walk up a flight of steps without significant shortness of breath. He demonstrated this in the office today. He has had no resting chest tightness. He denies edema. He denies syncope, palpitations, TIAs, amaurosis and claudication. ? He was referred for cardiac catheterization performed on 10/10/18: Impression: -Right dominant system. -Severe 3vCAD. -50% dLMT lesion. -LAD had moderate diffuse disease and previously shown patent HAMILTON (not interrogated here). -mLCX has 80-90% stenosis just following large OM supplied by widely patent vein graft. -RCA has two sequential severe lesions in the proximal (80%) and then mid (70%) sections. These were felt to be likely culprits for symptoms. -PCI will be performed to RCA. Recommended Treatment: Medical Therapy and PCI. Plan: -PCI to RCA. -Aggressive medical management. PROCEDURES PERFORMED: PCI to the RCA with a 3.0 x 32 Synergy EES ? He was seen by Dr. Hernandez 10/24/18, per office note: He recently underwent stenting of his proximal right coronary. He reports that he has had no change in his exercise intolerance and chest discomfort since that procedure was performed. He has used no nitroglycerin as the discomfort only lasts 30 seconds or less when he stops what he is doing. However, he states that any type of physical activity will cause chest tightness. ? He's had no discomfort at rest. He denies edema, syncope, palpitations, TIAs, amaurosis. ? He has cut down some on his smoking. I advised him to increase his losartan to 50 milligrams twice daily for better control of his morning blood pressure, which can sometimes be over 180 systolic. I advised him to continue his nitrates. We may be able to increase his amlodipine. I asked him to contact me with vital signs next week. We will consider the addition of ranolazine. ? He will be enrolled in cardiac rehabilitation. ? He has an appointment with Dr. Triana next month to discuss his progress. Consideration can be given at that time to further revascularization Today, he presents without any improvement in symptoms. He continues to have exertional chest pain subsiding quickly when he stops to rest, however, on Sunday, he had an episode which would not subside until he used 1 sublingual nitroglycerin. He did not need any additional nitroglycerin. He continues to have fatigue and shortness of breath. His BP is not controlled, especially in morning. Discussion with Dr. Triana, would like patient to have pharmacological stress test at October visit prior to considering another PCI. Needs BP control, advised ;pt to take Amlodipine in evening instead of morning and increased Coreg to 12.5 mg daily, follow up with Dr. Hernandez. He denies orthopnea, PND, palpitations, lightheadedness, syncope, leg swelling, cough and wheezing. PAST CARDIAC HISTORY: See HPI PAST MEDICAL HISTORY Diagnosis Date - CAD (coronary artery disease) - Hyperlipemia - Hypertension - RLS (restless legs syndrome) - Sleep apnea uses BiPAP PAST SURGICAL HISTORY Procedure Laterality Date - CORONARY ARTERY BYPASS GRAFT SOCIAL HISTORY Social History Substance Use Topics - Smoking status: Current Every Day Smoker Packs/day: 0.50 Years: 39.00 - Smokeless tobacco: Never Used - Alcohol use 4.5 oz/week 3 Cans of Beer (12oz) per week Comment: daily FAMILY HISTORY Problem Relation Age of Onset - Obesity Mother - Diabetes Mother type 2 - Heart Attack Father - Hypertension Father - Diabetes Brother type 2 - Heart Attack Paternal Grandfather ALLERGIES: ALLERGIES No Known Allergies MEDICATIONS: losartan (COZAAR) 50 mg tablet Take 1 tablet by mouth twice daily. clopidogrel (PLAVIX) 75 mg tablet Take 1 tablet by mouth once daily. amLODIPine (NORVASC) 5 mg tablet Take 1 tablet by mouth once daily. isosorbide mononitrate ER (IMDUR) 60 mg 24 hr tablet Take 2.5 tablets by mouth once daily. aspirin, enteric coated (ASPIRIN, ENTERIC COATED) 325 mg EC tablet Take 1 tablet by mouth once daily. Take with food. atorvastatin (LIPITOR) 80 mg tablet Take 1 tablet by mouth once daily. carvedilol (COREG) 6.25 mg tablet Take 1 tablet by mouth twice daily with meals. furosemide (LASIX) 40 mg tablet Take 1 tablet by mouth once daily. nitroglycerin sublingual (NITROQUICK) 0.4 mg SL tablet Dissolve 1 tablet under the tongue every 5 minutes as needed for Chest Pain. rOPINIRole (REQUIP) 2 mg tablet Take 1 tablet by mouth daily at bedtime. Naproxen Sodium 500 mg 24 hr tablet Take 500 mg by mouth daily with breakfast. REVIEW OF SYSTEMS: HEENT: Denies recent severe headaches, visual changes, difficulty swallowing. GASTROINTESTINAL: Denies melena, hematochezia, heartburn. GENITOURINARY: Denies hematuria. MUSCULOSKELETAL: Denies claudication or muscle myalgias. NEUROLOGIC: Denies unilateral paralysis, slurred speech. SKIN: Denies skin ulcers or lesions. HEMATOLOGICAL: Denies gingival bleeding, or prolonged epistaxis. ENDOCRINE:Denies heat or cold intolerance, excessive thirst or urination. All Other Remaining ROS negative. PHYSICAL EXAMINATION: BP 145/86 Pulse 88 Ht 5' 9 (1.75m) Wt 243 lb (110.2kg) BMI 35.87 kg/(m2). General:obese Skin:warm and dry Neck:no JVD, no carotid bruits, thyroid not palpable, no tenderness Lungs:clear to auscultation and no rales Heart:regular rhythm, S1, S2 normal, no S3, no S4, no heaves, no thrills and no murmur PV Pulses:pulses intact, no varicosities Abdomen:soft, non-tender, bowel sounds present Extremities:normal exam Edema Scale:no Musculoskeletal:Normal gait and ambulation Neurologic:Oriented to time, place and person, Mood AND Affect: appropriate CARDIOVASCULAR MEDICINE TESTING: No Cardiovascular testing perfomed today. There were no tests performed for review. IMPRESSION/PLAN: Mr. Anders is a 57 year old male with a history of ASHD status post CABGx3 (HAMILTON-LAD, SVG-OM1, SVG-PDA (occluded with L-R collaterals) 2, hypertension, hyperlipidemia, tobacco use and DAVID(CPAP), who presents today for follow-up visit status post successful PCI to the RCA with a 3.0 x 32 Synergy EES on 10/10/18 (I25.118) Coronary artery disease of pechanga artery of pechanga heart with stable angina pectoris (HCC) (primary encounter diagnosis) (Z95.5) Status post coronary artery stent placement - Status post successful PCI to the RCA with a 3.0 x 32 Synergy EES on 10/10/18 - Continued CP - Continue aspirin, Plavix, Lipitor, Isosorbide - Pharmacological Stress test at follow up with Dr. Triana (I10) Uncontrolled hypertension - BP uncontrolled especially in AM - Changed Amlodipine to PM and increase Coreg to 12.5 mg BID - Continue Losartan, Lasix - Follow up with Dr. Hernandez (E78.5) Hyperlipidemia, unspecified hyperlipidemia type - No recent lipids - Continue Lipitor I spent > 35 minutes in the visit, with more than 50% of the total [id number] time of the visit in counseling / coordination of care. 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 stable angina pectoris (HCC) [I25.118] Other Visit Diagnoses:Status post coronary artery stent placement [Z95.5] Uncontrolled hypertension [I10] Hyperlipidemia, unspecified hyperlipidemia type [E78.5] Order(s):carvedilol (COREG) 12.5 mg tabletTake 1 tablet by mouth twice daily.Disp: 30 tabletRfl: 11 PHARMACOLOGIC STRESS W/NUC IMAGING [[id number]] Order #: [id number]: 1 NM CARDIAC PERF STRESS/PHARM [[id number]] Order #: [id number] FUTURE Prescriptions as of 10/30/2018 Sig: AMLODIPINE 5 MG TABLET Take 1 tablet by mouth every * LOSARTAN 50 MG TABLET Take 1 tablet by mouth twice * CLOPIDOGREL 75 MG TABLET Take 1 tablet by mouth once d* ISOSORBIDE MONONITRATE ER 60 * Take 2.5 tablets by mouth onc* ASPIRIN 325 MG TABLET,DELAYED* Take 1 tablet by mouth once d* ATORVASTATIN 80 MG TABLET Take 1 tablet by mouth once d* FUROSEMIDE 40 MG TABLET Take 1 tablet by mouth once d* NITROGLYCERIN 0.4 MG SUBLINGU* Dissolve 1 tablet under the t* ROPINIROLE 2 MG TABLET Take 1 tablet by mouth daily * CARVEDILOL 12.5 MG TABLET Take 1 tablet by mouth twice * Problem List As Of Date 10/30/2018 Noted Resolved Pain in left shoulder [M25.512] INVALID FOR* Coronary artery disease of pechanga artery of [place]*INVALID FOR* Status post coronary artery stent placement [Z9*INVALID FOR* Uncontrolled hypertension [I10] INVALID FOR* Hyperlipidemia [E78.5] INVALID FOR* Prescriptions ordered this encounter Disp Refills Start End CARVEDILOL 12.5 MG TABLET 30 t* 11 10/30/2018 Route: ORAL Sig: Take 1 tablet by mouth twice daily. Medications Discontinued During This Encounter Naproxen Sodium 500 mg 24 hr tablet 10/30/2018 Class: Historical Med Route: ORAL Sig: Take 500 mg by mouth daily with breakfast. Disc: Reason for discontinue is not on file. carvedilol (COREG) 6.25 mg tablet 08/27/2018 10/30/2018 Class: Historical Med Route: ORAL Sig: Take 1 tablet by mouth twice daily with meals. Disc: Reason for discontinue is not on file. amLODIPine (NORVASC) 5 mg tablet 30 t* 11 09/30/2018 10/30/2018 Route: ORAL Sig: Take 1 tablet by mouth once daily. Disc: Reason for discontinue is not on file. Disposition: Return for Follow up with Dr. Triana 11/25/18. Follow-up and Disposition History Recorded Encounter Status:Closed by GARDENIA CANO PA-C on 10/30/18 PROGRESS Observed: 10/30/2018 Status: COMPLETED Source: [place] 7:18 AM [facility] REPOSITORY HNO ID: [id number] Author: Gardenia Cano (Pa) Service: (none) Author Type: Physician Feather Mixer Type: Progress Notes Filed: 10/30/2018 12:14 PM Note Text: [facility] [place] [facility] Rosenthal Department of Cardiovascular Medicine SECTION OF INTERVENTIONAL CARDIOLOGY OUTPATIENT VISIT DATE October 30, 2018 OUTPATIENT VISIT TYPE ESTABLISHED PRIMARY CARE PHYSICIAN: No PCP CHIEF COMPLAINT: Patient presents with: Follow Up HISTORY OF PRESENT ILLNESS: Mr. Anders is a 57 year old male with a history of ASHD status post CABGx3 (HAMILTON-LAD, SVG-OM1, SVG-PDA (occluded with L-R collaterals) 01/12, hypertension, hyperlipidemia, tobacco use and DAVID(CPAP), who presents today for follow-up visit status post successful PCI to the RCA with a 3.0 x 32 Synergy EES on 10/10/18. The patient follows with Dr. Hernandez, last seen 09/30/18, per office note: He continues to have disabling shortness of breath, although his angina has improved slightly since the adjustment in his nitrates. He has taken fewer sublingual nitroglycerin. He is unable to walk up a flight of steps without significant shortness of breath. He demonstrated this in the office today. He has had no resting chest tightness. He denies edema. He denies syncope, palpitations, TIAs, amaurosis and claudication. ? He was referred for cardiac catheterization performed on 10/10/18: Impression: -Right dominant system. -Severe 3vCAD. -50% dLMT lesion. -LAD had moderate diffuse disease and previously shown patent HAMILTON (not interrogated here). -mLCX has 80-90% stenosis just following large OM supplied by widely patent vein graft. -RCA has two sequential severe lesions in the proximal (80%) and then mid (70%) sections. These were felt to be likely culprits for symptoms. -PCI will be performed to RCA. Recommended Treatment: Medical Therapy and PCI. Plan: -PCI to RCA. -Aggressive medical management. PROCEDURES PERFORMED: PCI to the RCA with a 3.0 x 32 Synergy EES ? He was seen by Dr. Hernandez 10/24/18, per office note: He recently underwent stenting of his proximal right coronary. He reports that he has had no change in his exercise intolerance and chest discomfort since that procedure was performed. He has used no nitroglycerin as the discomfort only lasts 30 seconds or less when he stops what he is doing. However, he states that any type of physical activity will cause chest tightness. ? He's had no discomfort at rest. He denies edema, syncope, palpitations, TIAs, amaurosis. ? He has cut down some on his smoking. I advised him to increase his losartan to 50 milligrams twice daily for better control of his morning blood pressure, which can sometimes be over 180 systolic. I advised him to continue his nitrates. We may be able to increase his amlodipine. I asked him to contact me with vital signs next week. We will consider the addition of ranolazine. ? He will be enrolled in cardiac rehabilitation. ? He has an appointment with Dr. Triana next month to discuss his progress. Consideration can be given at that time to further revascularization Today, he presents without any improvement in symptoms. He continues to have exertional chest pain subsiding quickly when he stops to rest, however, on Sunday, he had an episode which would not subside until he used 1 sublingual nitroglycerin. He did not need any additional nitroglycerin. He continues to have fatigue and shortness of breath. His BP is not controlled, especially in morning. Discussion with Dr. Triana, would like patient to have pharmacological stress test at October visit prior to considering another PCI. Needs BP control, advised ;pt to take Amlodipine in evening instead of morning and increased Coreg to 12.5 mg daily, follow up with Dr. Hernandez. He denies orthopnea, PND, palpitations, lightheadedness, syncope, leg swelling, cough and wheezing. PAST CARDIAC HISTORY: See HPI PAST MEDICAL HISTORY Diagnosis Date - CAD (coronary artery disease) - Hyperlipemia - Hypertension - RLS (restless legs syndrome) - Sleep apnea uses BiPAP PAST SURGICAL HISTORY Procedure Laterality Date - CORONARY ARTERY BYPASS GRAFT SOCIAL HISTORY Social History Substance Use Topics - Smoking status: Current Every Day Smoker Packs/day: 0.50 Years: 39.00 - Smokeless tobacco: Never Used - Alcohol use 4.5 oz/week 3 Cans of Beer (12oz) per week Comment: daily FAMILY HISTORY Problem Relation Age of Onset - Obesity Mother - Diabetes Mother type 2 - Heart Attack Father - Hypertension Father - Diabetes Brother type 2 - Heart Attack Paternal Grandfather ALLERGIES: ALLERGIES No Known Allergies MEDICATIONS: losartan (COZAAR) 50 mg tablet Take 1 tablet by mouth twice daily. clopidogrel (PLAVIX) 75 mg tablet Take 1 tablet by mouth once daily. amLODIPine (NORVASC) 5 mg tablet Take 1 tablet by mouth once daily. isosorbide mononitrate ER (IMDUR) 60 mg 24 hr tablet Take 2.5 tablets by mouth once daily. aspirin, enteric coated (ASPIRIN, ENTERIC COATED) 325 mg EC tablet Take 1 tablet by mouth once daily. Take with food. atorvastatin (LIPITOR) 80 mg tablet Take 1 tablet by mouth once daily. carvedilol (COREG) 6.25 mg tablet Take 1 tablet by mouth twice daily with meals. furosemide (LASIX) 40 mg tablet Take 1 tablet by mouth once daily. nitroglycerin sublingual (NITROQUICK) 0.4 mg SL tablet Dissolve 1 tablet under the tongue every 5 minutes as needed for Chest Pain. rOPINIRole (REQUIP) 2 mg tablet Take 1 tablet by mouth daily at bedtime. Naproxen Sodium 500 mg 24 hr tablet Take 500 mg by mouth daily with breakfast. REVIEW OF SYSTEMS: HEENT: Denies recent severe headaches, visual changes, difficulty swallowing. GASTROINTESTINAL: Denies melena, hematochezia, heartburn. GENITOURINARY: Denies hematuria. MUSCULOSKELETAL: Denies claudication or muscle myalgias. NEUROLOGIC: Denies unilateral paralysis, slurred speech. SKIN: Denies skin ulcers or lesions. HEMATOLOGICAL: Denies gingival bleeding, or prolonged epistaxis. ENDOCRINE:Denies heat or cold intolerance, excessive thirst or urination. All Other Remaining ROS negative. PHYSICAL EXAMINATION: BP 145/86 Pulse 88 Ht 5' 9 (1.75m) Wt 243 lb (110.2kg) BMI 35.87 kg/(m2). General:obese Skin:warm and dry Neck:no JVD, no carotid bruits, thyroid not palpable, no tenderness Lungs:clear to auscultation and no rales Heart:regular rhythm, S1, S2 normal, no S3, no S4, no heaves, no thrills and no murmur PV Pulses:pulses intact, no varicosities Abdomen:soft, non-tender, bowel sounds present Extremities:normal exam Edema Scale:no Musculoskeletal:Normal gait and ambulation Neurologic:Oriented to time, place and person, Mood AND Affect: appropriate CARDIOVASCULAR MEDICINE TESTING: No Cardiovascular testing perfomed today. There were no tests performed for review. IMPRESSION/PLAN: Mr. 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 Triana (I10) Uncontrolled hypertension - BP uncontrolled especially in AM - Changed Amlodipine to PM and increase Coreg to 12.5 mg BID - Continue Losartan, Lasix - Follow up with Dr. Hernandez (E78.5) Hyperlipidemia, unspecified hyperlipidemia type - No recent lipids - Continue Lipitor I spent > 35 minutes in the visit, with more than 50% of the total rjtz-cu-cpqc time of the visit in counseling / coordination of care. Gardenia Cano PA-C PROGRESS Observed: 10/24/2018 Status: COMPLETED Source: [place] 10:21 AM [facility] REPOSITORY [facility] [place] ID: [id number] Author: Michael Hernandez Service: (none) Author Type: Physician Type: Progress Notes Filed: 10/24/2018 5:11 PM Note Text: PERTINENT CARDIAC HISTORY ASHD - CABGx3 (HAMILTON-LAD, SVG-OM1, SVG-PDA (occluded with L- R collaterals) 01/12, PCI RCA 09/12 HTN HL Tobacco use DAVID - CPAP ADHERENCE TO GUIDELINES BINU-I or ARB for HF with prior LVEF<40 (NQF 0081) - N/A ASA or Plavix for ASHD (NQF 0067) - N/A Beta regla for ASHD with prior [place] or prior LVEF<40 (NQF 0070) - N/A Beta regla for HF with prior LVEF<40 (NQF 0083) - N/A BINU-I or ARB for ASHD with DM or prior LVEF<40 (NQF 0066) - N/A Statin therapy for ASHD or FHL or DM - N/A BMI documented and plan if >25 (NQF 0421) - lifestyle recommendation form Tobacco use screening and referral (NQ 0028) - lifestyle recommendation form Recommendation for whole food, plant based diet - lifestyle recommendation form CLINICAL IMPRESSION/PLAN: Savage Anders continues to have exercise intolerance. I advised him to increase his losartan to 50 milligrams twice daily for better control of his morning blood pressure, which can sometimes be over 180 systolic. I advised him to continue his nitrates. We may be able to increase his amlodipine. I asked him to contact me with vital signs next week. We will consider the addition of ranolazine. He will be enrolled in cardiac rehabilitation. He has an appointment with Dr. Triana next month to discuss his progress. Consideration can be given at that time to further revascularization. I will see him in 2 months or as needed. Written and verbal health teaching given to patient, patient verbalizes understanding and agrees with treatment plan. DIAGNOSIS FOR VISIT: ASHD HISTORY OF PRESENT ILLNESS Savage Anders returns for follow-up of his coronary disease and exercise intolerance. He recently underwent stenting of his proximal right coronary. He reports that he has had no change in his exercise intolerance and chest discomfort since that procedure was performed. He has used no nitroglycerin as the discomfort only lasts 30 seconds or less when he stops what he is doing. However, he states that any type of physical activity will cause chest tightness. He's had no discomfort at rest. He denies edema, syncope, palpitations, TIAs, amaurosis. He has cut down some on his smoking. ALLERGIES: ALLERGIES No Known Allergies CURRENT OUTPATIENT MEDICATIONS: clopidogrel (PLAVIX) 75 mg tablet Take 1 tablet by mouth once daily. amLODIPine (NORVASC) 5 mg tablet Take 1 tablet by mouth once daily. isosorbide mononitrate ER (IMDUR) 60 mg 24 hr tablet Take 2.5 tablets by mouth once daily. aspirin, enteric coated (ASPIRIN, ENTERIC COATED) 325 mg EC tablet Take 1 tablet by mouth once daily. Take with food. atorvastatin (LIPITOR) 80 mg tablet Take 1 tablet by mouth once daily. carvedilol (COREG) 6.25 mg tablet Take 1 tablet by mouth twice daily with meals. furosemide (LASIX) 40 mg tablet Take 1 tablet by mouth once daily. losartan (COZAAR) 50 mg tablet Take 1 tablet by mouth once daily. nitroglycerin sublingual (NITROQUICK) 0.4 mg SL tablet Dissolve 1 tablet under the tongue every 5 minutes as needed for Chest Pain. rOPINIRole (REQUIP) 2 mg tablet Take 1 tablet by mouth daily at bedtime. Naproxen Sodium 500 mg 24 hr tablet Take 500 mg by mouth daily with breakfast. PHYSICAL EXAMINATION: VITAL SIGNS: BP 125/86 Pulse 80 Ht 5' 8 (1.73m) Wt 250 lb 3.2 oz (113.5kg) BMI 38.05 kg/(m2). Chest: Clear to auscultation. Trachea is midline. Air entry is equal. Cardiac: Regular rhythm. S1 and S2 are normal. PMI is nondisplaced. There is a soft systolic ejection murmur. Carotids are brisk without bruits. JVP is less than 10 cm. Abdomen: Soft and nontender. There are no pulsatile masses or bruits. No liver enlargement. Bowel sounds are active. Extremities: No edema. Pulses are intact and symmetrical. Cath films were reviewed with him. The right coronary looks quite nice proximally. There is questionable impairment of flow to a large branch of the marginal system. Minimal antegrade flow is noted. There is some impairment of retrograde perfusion from the marginal graft. His left internal mammary has multiple chest wall branches which may be siphoning off some of the blood flow to his LAD system. Electronically Signed: Michael Hernandez MD October 24, 2018 10:21 AM CC: No primary care provider on file. CNOV Observed: 10/24/2018 Status: COMPLETED Source: [place] 10:00 AM [facility] REPOSITORY Office Visit (CAWSTR) SAVAGE ANDERS ([id number]) 1960 M Date Time Provider Department 10/24/18 10:00 AM MICHAEL HERNANDEZTR During your visit today, we recorded the following information about you: Pulse Blood pressure Weight Height 80/minute 125/86 113.5 kg 1.727 m Michael Hernandez MD 10/24/2018 5:11 PM Signed PERTINENT CARDIAC HISTORY ASHD - CABGx3 (HAMILTON-LAD, SVG-OM1, SVG-PDA (occluded with L- R collaterals) 01/12, PCI RCA 09/12 HTN HL Tobacco use DAVID - CPAP ADHERENCE TO GUIDELINES BINU-I or ARB for HF with prior LVEF<40 (NQF 0081) - N/A ASA or Plavix for ASHD (NQF 0067) - N/A Beta regla for ASHD with prior [place] or prior LVEF<40 (NQF 0070) - N/A Beta regla for HF with prior LVEF<40 (NQF 0083) - N/A BINU-I or ARB for ASHD with DM or prior LVEF<40 (NQF 0066) - N/A Statin therapy for ASHD or FHL or DM - N/A BMI documented and plan if >25 (NQF 0421) - lifestyle recommendation form Tobacco use screening and referral (NQF 0028) - lifestyle recommendation form Recommendation for whole food, plant based diet - lifestyle recommendation form CLINICAL IMPRESSION/PLAN: Savage Anders continues to have exercise intolerance. I advised him to increase his losartan to 50 milligrams twice daily for better control of his morning blood pressure, which can sometimes be over 180 systolic. I advised him to continue his nitrates. We may be able to increase his amlodipine. I asked him to contact me with vital signs next week. We will consider the addition of ranolazine. He will be enrolled in cardiac rehabilitation. He has an appointment with Dr. Triana next month to discuss his progress. Consideration can be given at that time to further revascularization. I will see him in 2 months or as needed. Written and verbal health teaching given to patient, patient verbalizes understanding and agrees with treatment plan. DIAGNOSIS FOR VISIT: ASHD HISTORY OF PRESENT ILLNESS Savage Anders returns for follow-up of his coronary disease and exercise intolerance. He recently underwent stenting of his proximal right coronary. He reports that he has had no change in his exercise intolerance and chest discomfort since that procedure was performed. He has used no nitroglycerin as the discomfort only lasts 30 seconds or less when he stops what he is doing. However, he states that any type of physical activity will cause chest tightness. He's had no discomfort at rest. He denies edema, syncope, palpitations, TIAs, amaurosis. He has cut down some on his smoking. ALLERGIES: ALLERGIES No Known Allergies CURRENT OUTPATIENT MEDICATIONS: clopidogrel (PLAVIX) 75 mg tablet Take 1 tablet by mouth once daily. amLODIPine (NORVASC) 5 mg tablet Take 1 tablet by mouth once daily. isosorbide mononitrate ER (IMDUR) 60 mg 24 hr tablet Take 2.5 tablets by mouth once daily. aspirin, enteric coated (ASPIRIN, ENTERIC COATED) 325 mg EC tablet Take 1 tablet by mouth once daily. Take with food. atorvastatin (LIPITOR) 80 mg tablet Take 1 tablet by mouth once daily. carvedilol (COREG) 6.25 mg tablet Take 1 tablet by mouth twice daily with meals. furosemide (LASIX) 40 mg tablet Take 1 tablet by mouth once daily. losartan (COZAAR) 50 mg tablet Take 1 tablet by mouth once daily. nitroglycerin sublingual (NITROQUICK) 0.4 mg SL tablet Dissolve 1 tablet under the tongue every 5 minutes as needed for Chest Pain. rOPINIRole (REQUIP) 2 mg tablet Take 1 tablet by mouth daily at bedtime. Naproxen Sodium 500 mg 24 hr tablet Take 500 mg by mouth daily with breakfast. PHYSICAL EXAMINATION: VITAL SIGNS: BP 125/86 Pulse 80 Ht 5' 8 (1.73m) Wt 250 lb 3.2 oz (113.5kg) BMI 38.05 kg/(m2). Chest: Clear to auscultation. Trachea is midline. Air entry is equal. Cardiac: Regular rhythm. S1 and S2 are normal. PMI is nondisplaced. There is a soft systolic ejection murmur. Carotids are brisk without bruits. JVP is less than 10 cm. Abdomen: Soft and nontender. There are no pulsatile masses or bruits. No liver enlargement. Bowel sounds are active. Extremities: No edema. Pulses are intact and symmetrical. Cath films were reviewed with him. The right coronary looks quite nice proximally. There is questionable impairment of flow to a large branch of the marginal system. Minimal antegrade flow is noted. There is some impairment of retrograde perfusion from the marginal graft. His left internal mammary has multiple chest wall branches which may be siphoning off some of the blood flow to his LAD system. Electronically Signed: Michael Hernandez MD October 24, 2018 10:21 AM CC: No primary care provider on file. Michael Hernandez MD 10/24/2018 10:21 AM Signed LIFESTYLE CHANGE A healthy lifestyle is the most important component of your overall treatment plan. Please give serious thought to the following areas and commit to making detention changes. EAT A WHOLE FOOD, PLANT BASED DIET The nutrition your body gets is more important than the medicine you take. What matters most is the overall way you eat. We encourage you to minimize the use of animal products (which include dairy and all meats except fatty fish) and use whole, unprocessed plant foods to provide your protein, vitamins and other nutrients. We have a lot of information to share with you on this topic. This is not a diet. It is a way of life that you will keep with you. EXERCISE REGULARLY It is not important to spend hours in the gym, lifting weights and perspiring heavily. A total of 2-3 hours per week of aerobic (causing you to be moderately short of breath) exercise is sufficient to improve your health. Talk to us before you begin a new exercise program, if you have heart disease or experience shortness of breath or chest pain. REDUCE STRESS Chronic emotional and physical stress leads to disease. Ways of reducing stress include meditation, visualization, prayer, yoga and other forms of relaxation therapy. Consistency is the bermeo. Find a technique that works for you and do it every day. CULTIVATE RELATIONSHIPS Loneliness and isolation have a major negative impact on health. Seek out others who can love, care for and nurture you. Avoid hurtful relationships. MAINTAIN IDEAL BODY WEIGHT The best way to do this is to do all the things above. Our bodies naturally find the right weight if we keep moving and feed ourselves the right food. If your BMI is greater than 25, we strongly recommend a referral to a weight management program. Please speak to us or your family physician about available programs. AVOID NICOTINE IN ALL FORMS This includes all tobacco products, whether chewed, smoked, vaped, or rubbed on the skin. Smoking cessation programs, which can make use of tobacco substitutes, medications to suppress cravings and behavior management, are available. Please contact your family physician about programs in your area. Referring Provider: MICHAEL HERNANDEZ [[id number]] Allergies As of Date: 10/24/2018 (No Known Allergies) Date Reviewed: 10/24/2018 Reviewed by: Elda Cerda MA - Fully Assessed Reason for Visit: Established Patient [175] Primary Visit Diagnosis:ASHD (arteriosclerotic heart disease) [I25.10] Other Visit Diagnosis:Essential hypertension [I10] Order(s):losartan (COZAAR) 50 mg tabletTake 1 tablet by mouth twice daily.Disp: Rfl: CONSULT TO [facility] PHASE II [] Order #: [id number]: 1 Prescriptions as of 10/24/2018 Sig: LOSARTAN 50 MG TABLET Take 1 tablet by mouth twice * CLOPIDOGREL 75 MG TABLET Take 1 tablet by mouth once d* AMLODIPINE 5 MG TABLET Take 1 tablet by mouth once d* ISOSORBIDE MONONITRATE ER 60 * Take 2.5 tablets by mouth onc* ASPIRIN 325 MG TABLET,DELAYED* Take 1 tablet by mouth once d* ATORVASTATIN 80 MG TABLET Take 1 tablet by mouth once d* CARVEDILOL 6.25 MG TABLET Take 1 tablet by mouth twice * FUROSEMIDE 40 MG TABLET Take 1 tablet by mouth once d* NITROGLYCERIN 0.4 MG SUBLINGU* Dissolve 1 tablet under the t* ROPINIROLE 2 MG TABLET Take 1 tablet by mouth daily * NAPROXEN SODIUM ER (CR) 500 M* Take 500 mg by mouth daily wi* Problem List As Of Date 10/24/2018 Noted Resolved Pain in left shoulder [M25.512] INVALID FOR* Other instructions from your clinician: LIFESTYLE CHANGE A healthy lifestyle is the most important component of your overall treatment plan. Please give serious thought to the following areas and commit to making detention changes. EAT A WHOLE FOOD, PLANT BASED DIET The nutrition your body gets is more important than the medicine you take. What matters most is the overall way you eat. We encourage you to minimize the use of animal products (which include dairy and all meats except fatty fish) and use whole, unprocessed plant foods to provide your protein, vitamins and other nutrients. We have a lot of information to share with you on this topic. This is not a diet. It is a way of life that you will keep with you. EXERCISE REGULARLY It is not important to spend hours in the gym, lifting weights and perspiring heavily. A total of 2-3 hours per week of aerobic (causing you to be moderately short of breath) exercise is sufficient to improve your health. Talk to us before you begin a new exercise program, if you have heart disease or experience shortness of breath or chest pain. REDUCE STRESS Chronic emotional and physical stress leads to disease. Ways of reducing stress include meditation, visualization, prayer, yoga and other forms of relaxation therapy. Consistency is the bermeo. Find a technique that works for you and do it every day. CULTIVATE RELATIONSHIPS Loneliness and isolation have a major negative impact on health. Seek out others who can love, care for and nurture you. Avoid hurtful relationships. MAINTAIN IDEAL BODY WEIGHT The best way to do this is to do all the things above. Our bodies naturally find the right weight if we keep moving and feed ourselves the right food. If your BMI is greater than 25, we strongly recommend a referral to a weight management program. Please speak to us or your family physician about available programs. AVOID NICOTINE IN ALL FORMS This includes all tobacco products, whether chewed, smoked, vaped, or rubbed on the skin. Smoking cessation programs, which can make use of tobacco substitutes, medications to suppress cravings and behavior management, are available. Please contact your family physician about programs in your area. Prescriptions ordered this encounter Disp Refills Start End LOSARTAN 50 MG TABLET 10/24/2018 Class: Med Update Route: ORAL Sig: Take 1 tablet by mouth twice daily. Medications Discontinued During This Encounter losartan (COZAAR) 50 mg tablet 08/27/2018 10/24/2018 Class: Historical Med Route: ORAL Sig: Take 1 tablet by mouth once daily. Disc: Reason for discontinue is not on file. Follow-up and Disposition History Recorded Encounter Status:Closed by MICHAEL HERNANDEZ MD on 10/24/18 PLAN OF CARE Observed: 10/11/2018 Status: COMPLETED Source: [place] 10:08 AM [facility] REPOSITORY O ID: [id number] Author: Romelia Ornelas (Supervisor Anodizing) Service: (none) Author Type: (none) Type: Plan of Care Filed: 10/11/2018 10:09 AM Note Text: PHARMACY BEDSIDE DELIVERY SERVICE Patient Name: Savage Anders The marked outpatient medications were Filled at: [facility] and delivered to the patient's bedside to patient Medication List START taking these medications clopidogrel 75 mg tablet Commonly known as: PLAVIX Take 1 tablet by mouth once daily. delivered CONTINUE taking these medications amLODIPine 5 mg tablet Commonly known as: NORVASC Take 1 tablet by mouth once daily. aspirin, enteric coated 325 mg EC tablet Commonly known as: ASPIRIN, ENTERIC COATED atorvastatin 80 mg tablet Commonly known as: LIPITOR carvedilol 6.25 mg tablet Commonly known as: COREG furosemide 40 mg tablet Commonly known as: LASIX isosorbide mononitrate ER 60 mg 24 hr tablet Commonly known as: IMDUR Take 2.5 tablets by mouth once daily. losartan 50 mg tablet Commonly known as: COZAAR Naproxen Sodium 500 mg 24 hr tablet nitroglycerin sublingual 0.4 mg SL tablet Commonly known as: NITROQUICK rOPINIRole 2 mg tablet Commonly known as: REQUIP You might also be taking other medications not listed above. If you have questions about any of your other medications, talk to the person who prescribed them or your Primary Care Provider. Romelia Ornelas ([employer]) PAGER: October 11, 2018 10:08 AM PLAN OF CARE Observed: 10/11/2018 Status: COMPLETED Source: [place] 8:46 AM [facility] REPOSITORY HNO ID: [id number] Author: Romelia Ornelas ([employer]) Service: (none) Author Type: (none) Type: Plan of Care Filed: 10/11/2018 8:46 AM Note Text: Pharmacy Discharge Medication Service: This patient has elected to receive their discharge prescriptions through the [facility] Bedside Prescription Delivery program. The prescriptions are currently being processed. A follow-up note will be entered once the prescriptions have been filled and delivered to the patient. Please contact me with any questions or updates to the patient's discharge medications. Romelia Ornelas ([employer]) DCT Contact Info: PLAN OF CARE Observed: 10/11/2018 Status: COMPLETED Source: [place] 8:46 AM [facility] REPOSITORY HNO ID: [id number] Author: Romelia Ornelas ([employer]) Service: (none) Author Type: (none) Type: Plan of Care Filed: 10/11/2018 8:46 AM Note Text: EMERGENCY ROOM CLERK BEDSIDE DELIVERY SURVEY 1. Patient to use [facility] Bedside Delivery - YES 2. If fax, patient would like us to fax prescriptions to Pharmacy of choice a. Pharmacy: b. Location: c. Phone: 3. Insurance card on file - YES 4. Credit card for payment - YES ECG COMPLETE W Observed: 10/11/2018 Status: F Source: [place] INTERPRETATION 5:05 AM [facility] REPOSITORY NAME : SAVAGE ANDERS PID : [id number] : 1960 Gender : Male Race : ORD : [id number] Procedure Date : Oct 11 2018 05:05:58 Edit Date : Oct 17 2018 12:40:06 Diagnosis:NORMAL SINUS RHYTHM RIGHT AXIS BORDERLINE ECG Confirmed by SHAYAN STAHL MD ([id number]) on 10/17/2018 12:40:02 PM Ventricular Rate : 82 BPM Atrial Rate : 82 BPM P-R Interval : 152 ms QRS Duration : 110 ms Q-T Interval : 406 ms QTC Calculation(Bezet) : 474 ms P [place] : 35 degrees R [place] : 94 degrees T [place] : 44 degrees Test Reason : Location : 333 : J33 [id number] Overread By : SHAYAN STAHL MD Edited By : SHAYAN STAHL MD Referred By : , Acquired by : PRN,SUPERVISOR TWISTING DEPARTMENT BASIC METABOLIC PANL Collected: 10/11/2018 Status: F Source: [place] 1:30 AM [facility] REPOSITORY TYPE CODE TESTS RESULT OUT OF REFERENCE UNITS RANGE LAB GLU 74-99 mg/dL Glucose 95 Result Comment: The [place] [employer] (ADA) provides guidance for cutoff values for fasting glucose and random glucose. The ADA defines fasting as no caloric intake for at least 8 hours. Fas ting plasma glucose results between 100 to 125 mg/dL indicate increased risk for diabetes (prediabetes). Fasting plasma glucose results greater than or equal to 126 mg/dL meet the criteria for diagnosis of diabetes. In the absence of unequivocal hyperglycemia, results should be confirmed by repeat testing. In a patient with classic symptoms of hyperglycemia or hyperglycemic crisis, random plasma glucose results greater than or equal to 200 mg/dL meet the criteria for diagnosis of diabetes. Reference: Standards of Medical Care in Diabetes 2016, [place] [employer]. Diabetes Care. 2016.39(Suppl 1). LAB BUN 9-24 mg/dL BUN 12 LAB CRET 0.73-1.22 mg/dL Creatinine 0.86 LAB NA 136-144 mmol/L Sodium 139 LAB K 3.7-5.1 mmol/L Potassium 3.9 LAB CL 97-105 mmol/L Chloride 102 LAB CO2 22-30 mmol/L CO2 Low 20 LAB AGAP 9-18 mmol/L Anion Gap 17 LAB CA 8.5-10.2 mg/dL Calcium, Total 8.7 LAB GFRAA eGFR- Amer. >60 LAB GFRNAA . eGFR-All Other Races >60 Result Comment: eGFR (Estimated GFR) Units of measure: mL/min/1.73 meters squared eGFR is derived from the reexpressed MDRD Study equation using the following parameters: serum creatinine, age, gender and race. The creatinine assay has been calibrated to be traceable to IDAR. An eGFR <60 mL/min/1.73m2 for >3 months is consistent with chronic kidney disease. Refer to KDOQI guidelines for clinical interpretation. In patients with unstable renal function, e.g. those with acute kidney injury, the eGFR may not accurately reflect actual GFR. Performed By: #### BMP #### [facility] [address] [place], [place] [address] TYPE AND SCREEN Collected: 10/11/2018 Status: F Source: [place] 1:30 AM [facility] REPOSITORY TYPE CODE TESTS RESULT OUT OF REFERENCE UNITS RANGE LAB %ABR A ABO/RH(D) NEGATIVE LAB % Antibody NEG Screen Performed By: #### TSCR #### [facility] [address] [place], [place] [address] ECG COMPLETE W Observed: 10/10/2018 Status: F Source: [place] INTERPRETATION 4:13 PM [facility] REPOSITORY NAME : SAVAGE ANDERS PID : [id number] : 1960 Gender : Male Race : ORD : [id number] Procedure Date : Oct 10 2018 16:13:40 Edit Date : Oct 17 2018 12:40:03 Diagnosis:NORMAL SINUS RHYTHM RIGHT AXIS POSSIBLE INFERIOR MYOCARDIAL INFARCTION , AGE UNDETERMINED ABNORMAL ECG Confirmed by SHAYAN STAHL MD ([id number]) on 10/17/2018 12:39:59 PM Ventricular Rate : 77 BPM Atrial Rate : 77 BPM P-R Interval : 146 ms QRS Duration : 104 ms Q-T Interval : 402 ms QTC Calculation(Bezet) : 454 ms P [place] : 12 degrees R [place] : 90 degrees T [place] : 44 degrees Test Reason : Location : 333 : J33 007 Overread By : SHAYAN STAHL MD Edited By : SHAYAN STAHL MD Referred By : , Acquired by : REX SHEPHERD PROCEDURE Observed: 10/10/2018 Status: COMPLETED Source: [place] 1:17 PM [facility] REPOSITORY O ID: [id number] Author: Xu Abdi (Fel) Service: Cardiovascular Medicine Author Type: Fellow Type: Procedures Filed: 10/10/2018 1:19 PM Note Text: INTERVENTIONAL CARDIOLOGY Procedure Note ? Savage Anders DATE: October 10, 2018 Attending: Rubi Triana DO Diagnostic Fellow: Cem Hernandez MD Interventional Fellow: Xu Abdi MD HISTORY OF PRESENT ILLNESS: Mr. Anders is a 57 year old male who presents with angina. PMHx includes CAD s/p CABGx3 (HAMILTON-LAD, SVG-OM1, SVG-PDA (occluded with L-R collaterals), HLD, Smoker, and DAVID on CPAP DIAGNOSTIC ANGIOGRAPHY Diagnostic angiography 10/10/2018 showed severe RCA stenosis. Please see the separate diagnostic angiography report in [facility] for full details of the diagnostic coronary angiogram. PROCEDURES PERFORMED: PCI to the RCA with a 3.0 x 32 Synergy EES PROCEDURAL DETAILS Access: 6 Fr right radial artery Guide Catheter(s): 6 Fr JR4 guide Guidewire(s): Runthrough Other Equipment: None Hemostasis: Vasc Band Anticoagulation: Heparin Additional Post-procedure Medications: None PROCEDURAL NARRATIVE: We engaged the LMT with the 6Fr JR4 guide catheter. After administering heparin to a goal ACT of >250s, we advanced a Runthrough coronary wire to the distal RCA. We pre-dilated the lesion with a 2.5 x 15 mm TREK balloon at 16 carine. We then stented the lesion with a 3.0 x 32 mm Synergy EES at 16 carine. We post dilated the lesion with 3.5 x 20 mm NC TREK balloon at 18 carine. Final angiography showed no evidence of dissection or perforation. There was MECCA 3 flow and 0% residual stenosis. PLAN: 1. ASA 81mg daily, indefinitely 2. Clopidogrel 75mg OD for at least one year, ideally longer if tolerated. 3. Cardiac medical therapy and aggressive risk factor modification. Cardiac rehabilitation. 4. Transferred to stepdown unit in stable condition COMPLICATIONS None Please do not hesitate to contact me with questions. Xu Abdi MD Interventional Mobile Lounge Driver, [id number] Pager: [phone] 10/10/2018 1:17 PM ECG COMPLETE W Observed: 10/10/2018 Status: F Source: [facility] 10:48 AM [facility] REPOSITORY NAME : SAVAGE ANDERS PID : [id number] : 1960 Gender : Male Race : ORD : [id number] Procedure Date : Oct 10 2018 10:48:42 Edit Date : Oct 17 2018 12:40:00 Diagnosis:NORMAL SINUS RHYTHM LEFT POSTERIOR FASCICULAR BLOCK POSSIBLE INFERIOR MYOCARDIAL INFARCTION , AGE UNDETERMINED ABNORMAL ECG Confirmed by SHAYAN STAHL MD ([id number]) on 10/17/2018 12:39:54 PM Ventricular Rate : 87 BPM Atrial Rate : 87 BPM P-R Interval : 132 ms QRS Duration : 102 ms Q-T Interval : 400 ms QTC Calculation(Bezet) : 481 ms P [place] : 15 degrees R [place] : 111 degrees T [place] : 31 degrees Test Reason : 921 Location : 23 : [place] [address] Overread By : SHAYAN STAHL MD Edited By : SHAYAN STAHL MD Referred By : KAMILAH, Acquired by : [id number], PROGRESS Observed: 10/04/2018 Status: COMPLETED Source: [place] 9:33 AM [facility] REPOSITORY O ID: [id number] Author: Génesis Clay (Rt) Service: (none) Author Type: Professor Of Languages Type: Progress Notes Filed: 10/04/2018 9:33 AM Note Text: Radiology Service Progress Note PATIENT NAME: Savage Anders DATE OF SERVICE: October 04, 2018 TIME: 9:33 AM PATIENT IDENTITY VERIFICATION COMPLETED USING TWO (2) METHODS: Patient confirmed name verbally and Date of . PATIENT GENDER DATA: Male PATIENT RELEVANT IMPLANT DATA REVIEWED: Not Applicable RADIOLOGY DEPARTMENT: General X-ray: Exam(s) Completed: Chest X-Ray PERIPHERAL IV DATA: Not applicable SIGNED BY: RT Danna October 04, 2018 9:33 AM XR CHEST 2V FRONTAL/LAT Observed: 10/04/2018 Status: F Source: [place] 9:32 AM [facility] REPOSITORY * * *Final Report* * * DATE OF EXAM: Oct 04 2018 9:32AM [id number] [id number] - XR CHEST 2V FRONTAL/LAT / PROCEDURE REASON: multiple diagnoses * * * * Physician Interpretation * * * * EXAMINATION: CHEST RADIOGRAPH (2 VIEW FRONTAL and LATERAL) CLINICAL HISTORY: ASHD (arteriosclerotic heart disease) Essential hypertension MQ: XC2_5 Comparison: RESULT: Lines, tubes, and devices: None. Lungs and pleura: No consolidation. No lung mass. No pleural effusion. Cardiomediastinal silhouette: Normal cardiomediastinal silhouette. Other: Sternotomy wires and anterior mediastinal clips, likely related to prior CABG. IMPRESSION: No acute radiographic abnormality. Honey Extractor: PSCB Transcribe Date/Time: Oct 04 2018 9:44A Dictated by : LEANDRO BARBOSA MD This examination was interpreted and the report reviewed and electronically signed by: LEANDRO BARBOSA MD on Oct 04 2018 9:46AM EST [id number] CNOV Observed: 09/30/2018 Status: COMPLETED Source: [place] 1:15 PM [facility] REPOSITORY Office Visit (CAWSTR) SAVAGE ANDERS ([id number]) 1960 M Date Time Provider Department 09/30/18 1:15 PM MICHAEL HERNANDEZWSTR During your visit today, we recorded the following information about you: Pulse Blood pressure Weight 80/minute 145/87 114.4 kg Michael Hernandez MD 09/30/2018 5:23 PM Signed PERTINENT CARDIAC HISTORY ASHD - CABGx3 (HAMILTON-LAD, SVG-OM1, SVG-PDA (occluded with L- R collaterals) 01/12 HTN HL Tobacco use DAVID - CPAP ADHERENCE TO GUIDELINES BINU-I or ARB for HF with prior LVEF<40 (NQF 0081) - N/A ASA or Plavix for ASHD (NQF 0067) - N/A Beta regla for ASHD with prior [place] or prior LVEF<40 (NQF 0070) - N/A Beta regla for HF with prior LVEF<40 (NQF 0083) - N/A BINU-I or ARB for ASHD with DM or prior LVEF<40 (NQ 0066) - N/A Statin therapy for ASHD or FHL or DM - N/A BMI documented and plan if >25 (NQ 0421) - lifestyle recommendation form Tobacco use screening and referral (NQ 0028) - lifestyle recommendation form Recommendation for whole food, plant based diet - lifestyle recommendation form CLINICAL IMPRESSION/PLAN: Savage Anders has known occlusion of his graft to the right coronary. He has some disease in the pechanga right and has a large right ventricular branch which gives some collaterals. In addition, he has a very large chest wall branch coming off his left internal mammary. He may benefit from a percutaneous procedure. I've discussed this predominantly with Dr. Triana. I will asked Dr. Triana to consider diagnostic cath and percutaneous intervention on the right coronary. He was commended about decreasing his cigarettes. There is no suggestion that lung disease plays a significant role in his dyspnea and exercise intolerance. I recommend that he have follow-up labs including BNP and chest x-ray. These will serve as his preoperative labs if we elect to pursue angiography. In the meantime, he will start amlodipine 5 milligrams daily. I've asked him to update me with symptoms later this week. He has been encouraged to use sublingual nitroglycerin for acute symptoms. Written and verbal health teaching given to patient, patient verbalizes understanding and agrees with treatment plan. DIAGNOSIS FOR VISIT: ASHD Hypertension HISTORY OF PRESENT ILLNESS Savage Anders returns for follow-up of his coronary disease and hypertension. He continues to have disabling shortness of breath, although his angina has improved slightly since the adjustment in his nitrates. He has taken fewer sublingual nitroglycerin. He is unable to walk up a flight of steps without significant shortness of breath. He demonstrated this in the office today. He has had no resting chest tightness. He denies edema. He denies syncope, palpitations, TIAs, amaurosis and claudication. ALLERGIES: ALLERGIES No Known Allergies CURRENT OUTPATIENT MEDICATIONS: isosorbide mononitrate ER (IMDUR) 60 mg 24 hr tablet Take 2.5 tablets by mouth once daily. aspirin, enteric coated (ASPIRIN, ENTERIC COATED) 325 mg EC tablet Take 1 tablet by mouth once daily. Take with food. atorvastatin (LIPITOR) 80 mg tablet Take 1 tablet by mouth once daily. carvedilol (COREG) 6.25 mg tablet Take 1 tablet by mouth twice daily with meals. furosemide (LASIX) 40 mg tablet Take 1 tablet by mouth once daily. losartan (COZAAR) 50 mg tablet Take 1 tablet by mouth once daily. nitroglycerin sublingual (NITROQUICK) 0.4 mg SL tablet Dissolve 1 tablet under the tongue every 5 minutes as needed for Chest Pain. rOPINIRole (REQUIP) 2 mg tablet Take 1 tablet by mouth daily at bedtime. Naproxen Sodium 500 mg 24 hr tablet Take 500 mg by mouth daily with breakfast. PHYSICAL EXAMINATION: VITAL SIGNS: BP 145/87 Pulse 80 Wt 252 lb 4.8 oz (114.4kg). Resting oxygen saturation was 96%. After walking down and up the steps as quickly as possible, saturation was 97% and lungs were clear. Chest: Clear to auscultation. Trachea is midline. Air entry is equal. Cardiac: Regular rhythm. S1 and S2 are normal. PMI is nondisplaced. There is a soft systolic ejection murmur. Carotids are brisk without bruits. JVP is less than 10 cm. Abdomen: Soft and nontender. There are no pulsatile masses or bruits. No liver enlargement. Bowel sounds are active. Extremities: No edema. Pulses are intact and symmetrical. Stress test showed no evidence of reversibility. This was a pharmacologic test. Prior stress test test suggested right coronary territory ischemia Electronically Signed: Michael Hernandez MD September 30, 2018 12:12 PM CC: No primary care provider on file. Michael Hernandez MD 09/30/2018 12:12 PM Signed LIFESTYLE CHANGE A healthy lifestyle is the most important component of your overall treatment plan. Please give serious thought to the following areas and commit to making manager intermediate changes. EAT A WHOLE FOOD, PLANT BASED DIET The nutrition your body gets is more important than the medicine you take. What matters most is the overall way you eat. We encourage you to minimize the use of animal products (which include dairy and all meats except fatty fish) and use whole, unprocessed plant foods to provide your protein, vitamins and other nutrients. We have a lot of information to share with you on this topic. This is not a diet. It is a way of life that you will keep with you. EXERCISE REGULARLY It is not important to spend hours in the gym, lifting weights and perspiring heavily. A total of 2-3 hours per week of aerobic (causing you to be moderately short of breath) exercise is sufficient to improve your health. Talk to us before you begin a new exercise program, if you have heart disease or experience shortness of breath or chest pain. REDUCE STRESS Chronic emotional and physical stress leads to disease. Ways of reducing stress include meditation, visualization, prayer, yoga and other forms of relaxation therapy. Consistency is the bermeo. Find a technique that works for you and do it every day. CULTIVATE RELATIONSHIPS Loneliness and isolation have a major negative impact on health. Seek out others who can love, care for and nurture you. Avoid hurtful relationships. MAINTAIN IDEAL BODY WEIGHT The best way to do this is to do all the things above. Our bodies naturally find the right weight if we keep moving and feed ourselves the right food. If your BMI is greater than 25, we strongly recommend a referral to a weight management program. Please speak to us or your family physician about available programs. AVOID NICOTINE IN ALL FORMS This includes all tobacco products, whether chewed, smoked, vaped, or rubbed on the skin. Smoking cessation programs, which can make use of tobacco substitutes, medications to suppress cravings and behavior management, are available. Please contact your family physician about programs in your area. Referring Provider: MICHAEL HERNANDEZ [[id number]] Allergies As of Date: 09/30/2018 (No Known Allergies) Date Reviewed: 09/30/2018 Reviewed by: Diony Flaherty RN - Fully Assessed Reason for Visit: Recheck [92] Primary Visit Diagnosis:ASHD (arteriosclerotic heart disease) [I25.10] Other Visit Diagnosis:Essential hypertension [I10] Order(s):BASIC METABOLIC PNL [SQBMP] Order #: [id number] FUTURE NT PRO BNP [SQNTBNP] Order #: [id number] FUTURE MAGNESIUM BLD [SQMG1] Order #: [id number] FUTURE CBC [SQCBC] Order #: [id number] FUTURE PROTHROMBIN TIME/PT [SQPT] Order #: [id number] FUTURE XR CHEST 2V FRONTAL/LAT [[id number]] Order #: [id number] FUTURE amLODIPine (NORVASC) 5 mg tabletTake 1 tablet by mouth once daily.Disp: 30 tabletRfl: 11 CARDIAC COGNOS ADMINISTRATOR ORDER [[id number]] Order #: [id number]: 1 Prescriptions as of 09/30/2018 Sig: ISOSORBIDE MONONITRATE ER 60 * Take 2.5 tablets by mouth onc* ASPIRIN 325 MG TABLET,DELAYED* Take 1 tablet by mouth once d* ATORVASTATIN 80 MG TABLET Take 1 tablet by mouth once d* CARVEDILOL 6.25 MG TABLET Take 1 tablet by mouth twice * FUROSEMIDE 40 MG TABLET Take 1 tablet by mouth once d* LOSARTAN 50 MG TABLET Take 1 tablet by mouth once d* NITROGLYCERIN 0.4 MG SUBLINGU* Dissolve 1 tablet under the t* ROPINIROLE 2 MG TABLET Take 1 tablet by mouth daily * NAPROXEN SODIUM ER (CR) 500 M* Take 500 mg by mouth daily wi* AMLODIPINE 5 MG TABLET Take 1 tablet by mouth once d* Problem List As Of Date 09/30/2018 Noted Resolved Pain in left shoulder [M25.512] INVALID FOR* Other instructions from your clinician: LIFESTYLE CHANGE A healthy lifestyle is the most important component of your overall treatment plan. Please give serious thought to the following areas and commit to making detention changes. EAT A WHOLE FOOD, PLANT BASED DIET The nutrition your body gets is more important than the medicine you take. What matters most is the overall way you eat. We encourage you to minimize the use of animal products (which include dairy and all meats except fatty fish) and use whole, unprocessed plant foods to provide your protein, vitamins and other nutrients. We have a lot of information to share with you on this topic. This is not a diet. It is a way of life that you will keep with you. EXERCISE REGULARLY It is not important to spend hours in the gym, lifting weights and perspiring heavily. A total of 2-3 hours per week of aerobic (causing you to be moderately short of breath) exercise is sufficient to improve your health. Talk to us before you begin a new exercise program, if you have heart disease or experience shortness of breath or chest pain. REDUCE STRESS Chronic emotional and physical stress leads to disease. Ways of reducing stress include meditation, visualization, prayer, yoga and other forms of relaxation therapy. Consistency is the bermeo. Find a technique that works for you and do it every day. CULTIVATE RELATIONSHIPS Loneliness and isolation have a major negative impact on health. Seek out others who can love, care for and nurture you. Avoid hurtful relationships. MAINTAIN IDEAL BODY WEIGHT The best way to do this is to do all the things above. Our bodies naturally find the right weight if we keep moving and feed ourselves the right food. If your BMI is greater than 25, we strongly recommend a referral to a weight management program. Please speak to us or your family physician about available programs. AVOID NICOTINE IN ALL FORMS This includes all tobacco products, whether chewed, smoked, vaped, or rubbed on the skin. Smoking cessation programs, which can make use of tobacco substitutes, medications to suppress cravings and behavior management, are available. Please contact your family physician about programs in your area. Prescriptions ordered this encounter Disp Refills Start End AMLODIPINE 5 MG TABLET 30 t* 11 09/30/2018 Route: ORAL Sig: Take 1 tablet by mouth once daily. Encounter Status:Closed by MICHAEL HERNANDEZ MD on 09/30/18 PROTIME Collected: 09/30/2018 Status: F Source: [place] 12:32 PM [facility] REPOSITORY TYPE CODE TESTS RESULT OUT OF RANGE REFERENCE UNITS LAB PSEC 9.7-13.0 sec PT Sec 10.3 LAB INR 0.9-1.3 PT INR 1.0 Result Comment: Vitamin K Antagonist (VKA) Therapeutic Range: INR 2 to 3 (Target INR of 2.5) Note: For patients treated with VKA drugs, such as warfarin, the [place] [employer] 2012 Guideline recommends a therapeutic INR range of 2 to 3 (target INR of 2.5). This recommendation includes high-risk patients with antiphospholipid syndrome with previous arterial or venous thromboembolism, current-generation mechanical or bioprosthetic aortic heart valve replacement. Note: Patients with mechanical aortic valve replacement and additional risk factors for thromboembolic events (atrial fibrillation, previous thromboembolism, LV dysfunction, hypercoagulable conditions) or an older generation mechanical AVR (i.e., ball in-Cage) or any mechanical MVR should have a INR therapeutic range of 2.5 to 3.5 (target INR of 3). Luisana NELSON, et al. Chest 2012, 141:7S-47S Eze SONG et al. [facility] 2017, 70: 252-289 Performed By: #### PT, CBC, BMP, NTBNP #### [facility] [address], [place] [address] CBC Collected: 09/30/2018 Status: F Source: [place] 12:32 PM [facility] REPOSITORY TYPE CODE TESTS RESULT OUT OF REFERENCE UNITS RANGE LAB WBC 3.70-11.00 k/uL WBC 8.73 LAB RBC 4.20-6.00 m/uL RBC 4.75 LAB HGB 13.0-17.0 g/dL Hemoglobin 16.1 LAB HCT 39.0-51.0 % Hematocrit 48.5 LAB MCV 80.0-100.0 fL MCV High 102.1 LAB MCH 26.0-34.0 pG MCH 33.9 LAB MCHC 30.5-36.0 g/dL MCHC 33.2 LAB RDWCV 11.5-15.0 % RDW-CV 13.2 LAB PLTCT 150-400 k/uL Platelet Count 223 LAB MPV 9.0-12.7 fL MPV 10.0 LAB ABSNUC <0.01 k/uL Absolute nRBC <0.01 Performed By: #### PT, CBC, BMP, NTBNP #### [facility] [address] [place], [place] [address] BASIC METABOLIC PANL Collected: 09/30/2018 Status: F Source: [place] 12:32 PM [facility] REPOSITORY TYPE CODE TESTS RESULT OUT OF REFERENCE UNITS RANGE LAB GLU 74-99 mg/dL Test Glucose reordered by [facility]. Result Comment: [id number] CARLOS Account Credited Performed By: #### PT, CBC, BMP, NTBNP #### [facility] [place], [place] [address] NT PRO BNP Collected: 09/30/2018 Status: F Source: [place] 12:32 PM [facility] REPOSITORY TYPE CODE TESTS RESULT OUT OF REFERENCE UNITS RANGE LAB PBNP <125 pg/mL High PRO B Natr 196 Peptide Performed By: #### PT, CBC, BMP, NTBNP #### [facility] [address] [place], [place] [address] BASIC METABOLIC PANL Collected: 09/30/2018 Status: F Source: [place] 12:27 PM [facility] REPOSITORY TYPE CODE TESTS RESULT OUT OF REFERENCE UNITS RANGE LAB GLU 74-99 mg/dL High Glucose 108 Result Comment: The [place] [employer] (ADA) provides guidance for cutoff values for fasting glucose and random glucose. The ADA defines fasting as no caloric intake for at least 8 hours. Fas ting plasma glucose results between 100 to 125 mg/dL indicate increased risk for diabetes (prediabetes). Fasting plasma glucose results greater than or equal to 126 mg/dL meet the criteria for diagnosis of diabetes. In the absence of unequivocal hyperglycemia, results should be confirmed by repeat testing. In a patient with classic symptoms of hyperglycemia or hyperglycemic crisis, random plasma glucose results greater than or equal to 200 mg/dL meet the criteria for diagnosis of diabetes. Reference: Standards of Medical Care in Diabetes 2016, [place] [employer]. Diabetes Care. 2016.39(Suppl 1). LAB BUN 9-24 mg/dL BUN 10 LAB CRET 0.73-1.22 mg/dL Creatinine 0.84 LAB NA 136-144 mmol/L Sodium 141 LAB K 3.7-5.1 mmol/L Potassium 4.2 LAB CL 97-105 mmol/L Chloride 102 LAB CO2 22-30 mmol/L Low CO2 20 LAB AGAP 9-18 mmol/L Anion Gap High 19 LAB CA 8.5-10.2 mg/dL Calcium, Total 9.3 LAB GFRAA eGFR- Amer. >60 LAB GFRNAA . eGFR-All Other Races >60 Result Comment: eGFR (Estimated GFR) Units of measure: mL/min/1.73 meters squared eGFR is derived from the reexpressed MDRD Study equation using the following parameters: serum creatinine, age, gender and race. The creatinine assay has been calibrated to be traceable to IDMS. An eGFR <60 mL/min/1.73m2 for >3 months is consistent with chronic kidney disease. Refer to KDOQI guidelines for clinical interpretation. In patients with unstable renal function, e.g. those with acute kidney injury, the eGFR may not accurately reflect actual GFR. Performed By: #### BMP, MG1 #### [facility] [address] [place], [place] [address] MAGNESIUM Collected: 09/30/2018 Status: F Source: [place] 12:27 PM [facility] REPOSITORY TYPE CODE TESTS RESULT OUT OF REFERENCE UNITS RANGE LAB MG 1.7-2.3 mg/dL Magnesium 2.3 Performed By: #### BMP, MG1 #### [facility] [address] [place] [id number] PROGRESS Observed: 09/30/2018 Status: COMPLETED Source: [place] 12:12 PM [facility] REPOSITORY HNO ID: [id number] Author: Michael Hernandez Service: (none) Author Type: Physician Type: Progress Notes Filed: 09/30/2018 5:23 PM Note Text: PERTINENT CARDIAC HISTORY ASHD - CABGx3 (HAMILTON-LAD, SVG-OM1, SVG-PDA (occluded with L- R collaterals) 01/12 HTN HL Tobacco use DAVID - CPAP ADHERENCE TO GUIDELINES BINU-I or ARB for HF with prior LVEF<40 (NQF 0081) - N/A ASA or Plavix for ASHD (NQF 0067) - N/A Beta regla for ASHD with prior [place] or prior LVEF<40 (NQF 0070) - N/A Beta regla for HF with prior LVEF<40 (NQF 0083) - N/A BINU-I or ARB for ASHD with DM or prior LVEF<40 (NQF 0066) - N/A Statin therapy for ASHD or FHL or DM - N/A BMI documented and plan if >25 (NQF 0421) - lifestyle recommendation form Tobacco use screening and referral (NQF 0028) - lifestyle recommendation form Recommendation for whole food, plant based diet - lifestyle recommendation form CLINICAL IMPRESSION/PLAN: Savage Anders has known occlusion of his graft to the right coronary. He has some disease in the pechanga right and has a large right ventricular branch which gives some collaterals. In addition, he has a very large chest wall branch coming off his left internal mammary. He may benefit from a percutaneous procedure. I've discussed this predominantly with Dr. Triana. I will asked Dr. Triana to consider diagnostic cath and percutaneous intervention on the right coronary. He was commended about decreasing his cigarettes. There is no suggestion that lung disease plays a significant role in his dyspnea and exercise intolerance. I recommend that he have follow-up labs including BNP and chest x-ray. These will serve as his preoperative labs if we elect to pursue angiography. In the meantime, he will start amlodipine 5 milligrams daily. I've asked him to update me with symptoms later this week. He has been encouraged to use sublingual nitroglycerin for acute symptoms. Written and verbal health teaching given to patient, patient verbalizes understanding and agrees with treatment plan. DIAGNOSIS FOR VISIT: ASHD Hypertension HISTORY OF PRESENT ILLNESS Savage Anders returns for follow-up of his coronary disease and hypertension. He continues to have disabling shortness of breath, although his angina has improved slightly since the adjustment in his nitrates. He has taken fewer sublingual nitroglycerin. He is unable to walk up a flight of steps without significant shortness of breath. He demonstrated this in the office today. He has had no resting chest tightness. He denies edema. He denies syncope, palpitations, TIAs, amaurosis and claudication. ALLERGIES: ALLERGIES No Known Allergies CURRENT OUTPATIENT MEDICATIONS: isosorbide mononitrate ER (IMDUR) 60 mg 24 hr tablet Take 2.5 tablets by mouth once daily. aspirin, enteric coated (ASPIRIN, ENTERIC COATED) 325 mg EC tablet Take 1 tablet by mouth once daily. Take with food. atorvastatin (LIPITOR) 80 mg tablet Take 1 tablet by mouth once daily. carvedilol (COREG) 6.25 mg tablet Take 1 tablet by mouth twice daily with meals. furosemide (LASIX) 40 mg tablet Take 1 tablet by mouth once daily. losartan (COZAAR) 50 mg tablet Take 1 tablet by mouth once daily. nitroglycerin sublingual (NITROQUICK) 0.4 mg SL tablet Dissolve 1 tablet under the tongue every 5 minutes as needed for Chest Pain. rOPINIRole (REQUIP) 2 mg tablet Take 1 tablet by mouth daily at bedtime. Naproxen Sodium 500 mg 24 hr tablet Take 500 mg by mouth daily with breakfast. PHYSICAL EXAMINATION: VITAL SIGNS: BP 145/87 Pulse 80 Wt 252 lb 4.8 oz (114.4kg). Resting oxygen saturation was 96%. After walking down and up the steps as quickly as possible, saturation was 97% and lungs were clear. Chest: Clear to auscultation. Trachea is midline. Air entry is equal. Cardiac: Regular rhythm. S1 and S2 are normal. PMI is nondisplaced. There is a soft systolic ejection murmur. Carotids are brisk without bruits. JVP is less than 10 cm. Abdomen: Soft and nontender. There are no pulsatile masses or bruits. No liver enlargement. Bowel sounds are active. Extremities: No edema. Pulses are intact and symmetrical. Stress test showed no evidence of reversibility. This was a pharmacologic test. Prior stress test test suggested right coronary territory ischemia Electronically Signed: Michael Hernandez MD September 30, 2018 12:12 PM CC: No primary care provider on file. PROGRESS Observed: 09/11/2018 Status: COMPLETED Source: [place] 4:04 PM [facility] REPOSITORY HNO ID: [id number] Author: Sondra Capps Service: (none) Author Type: (none) Type: Progress Notes Filed: 09/11/2018 4:05 PM Note Text: RADIOLOGY SERVICE PROGRESS NOTE SERVICE DATE: 09/11/2018 SERVICE TIME: 4:04 PM PATIENT IDENTITY VERIFICATION COMPLETED USING TWO (2) METHODS: Patient confirmed name and Date of verbally. PATIENT GENDER DATA: .male ALLERGIES: Reviewed and unchanged MEDICATIONS REVIEWED: Yes PATIENT RELEVANT IMPLANT DATA REVIEWED: Not Applicable CREATININE: No results found for: CREAT, EGFROTH, EGFRAA P.O.C.T. RESULTS: N/A September 11, [address] PERFORMED: No IV SITE: Ambulatory: A peripheral IV was started in the Left antecubital site with a Angio cath: 22 gauge. POST EXAM PIV STATUS: Discontinued PROCEDURE TYPE: [place] Stress: 16.6mCi Qx06s-Tapbejo was administered IV for Rest Imaging at 13:24 by chava Lamb. 44.8 mCi Tc99m- Myoview was administered IV for Stress Imaging at 15:01 by chava Lamb. ADMINISTRATION TIME: PATIENT DISCHARGED TO: Ambulatory patient, left [place] department area. A Diagnostic radioactive procedure has taken place, with no further precautions necessary other than routine body substance precautions. More information regarding radiation safety can be found using this link: [email or web address] SIGNATURE: Sondra Capps PATIENT NAME: Savage Anders DATE: September 11, 2018 TIME: 4:04 PM PAGER/CONTACT #: NM CARDIAC PERF Observed: 09/11/2018 Status: F Source: [place] STRESS/PHARM 4:03 PM [facility] REPOSITORY * * *Final Report* * * DATE OF EXAM: Sep 11 2018 4:03PM [facility] 0006 - [place] CARDIAC PERF STRESS/PHARM / PROCEDURE REASON: pharm * * * * Physician Interpretation * * * * PATIENT: Name: SAVAGE ANDERS Age: 57 years Gender: M CONCLUSIONS: 1. SPECT Perfusion Study: Normal. 2. There is no scintigraphic evidence for inducible ischemia. 3. No evidence of scarred myocardium. 4. Functional capacity N/A (pharmacological). 5. Left ventricle is normal in size. The left ventricle systolic function is normal. 6. Right ventricle is normal in size. The right ventricle systolic function is normal. 7. This is a low risk scan. Gated Stress FBP LVEF % 72 Prior Study Comparison No prior nuclear cardiology exam available for comparison. Nuclear Med Report:1-Day Tc-Tetrofosmin Gated SPECT Myocardial Perfusion with Regadenoson Stress: Myocardial perfusion imaging was performed at rest 30 minutes following the IV injection of Tc-99m tetrofosmin. The patient received 0.4 mg of regadenoson, via rapid IV push, immediately followed by Tc-99m tetrofosmin IV. Gated post stress tomographic imaging was performed 30 to 60 minutes later. See administered doses below. [facility] Date of service: 09/11/2018 8:42:17 AM Ordering Physician: Requesting Physician: MICHAEL HERNANDEZ Indication: Assessment for known CAD, CP - ECG uniterpretable OR unable to exercise and Worsening known CAD: re-evaluation of medically managed patients. Interpreting physician: Tal Cormier MD Patient History: History of hypertension, dyslipidemia, coronary heart disease and smoker. Medications currently taking are nitrate, ASA, statins, B-regla, diuretic and ARB. Previous Cardiovascular Interventions: CABG (2017) Height: 172.72 cm BSA: 2.36 m? Weight: 116.12 kg BMI: 38.9 kg/m? Exam Type: Rest Stress Radiopharm: Tc-99m Tetrofosmin Tc-99m Tetrofosmin Dosage(mCi): 16.6 44.8 Stress Agent: Regadenoson 0.4mg Supply provided from [facility] Resting Heart Rate: 77 bpm Resting Blood Press: 130/82 mmHg Image Quality The overall study imaging quality was deemed to be good. FINDINGS: Left Ventricle Wall Motion: Stress IR:3D - All scored segments are normal. Rest IR:3D - Gated Stress FBP - Reversibility - Stress IR:3D Stress IR:3D Gated Stress FBP LVEF: 72 % ED Volume: 101 ml ES Volume: 28 ml TID: 0.89 Perfusion Findings Stress IR:3D - Summed Score=0 All scored segments reflect normal perfusion. Rest IR:3D - Summed Score=0 All scored segments reflect normal perfusion. Stress IR:3D Rest IR:3D Summed Score=0 Summed Score=0 LEFT VENTRICLE The left ventricle is normal in size. Left ventricular systolic function is normal. Right Ventricle The right ventricle is normal in size. Right ventricle systolic function is normal. Stress Test Findings: There is no scintigraphic evidence for inducible ischemia. There is no evidence of scarring. The stress test was terminated due to the following: End of Protocol. Peak HR 107 bpm. (65 % MPHR) Peak BP 152 mmHg/86 mmHg Patient experienced no symptoms during stress. Stress ECG normal ST segment response. Stress complications: none. 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 Ashley Chapa, JAYDEN CNNURSE Observed: 09/11/2018 Status: COMPLETED Source: [place] 2:00 PM [facility] REPOSITORY Nurse Visit (CAWSTR) SAVAGE ANDERS ([id number]) 1960 M Date Time Provider Department 09/11/18 2:00 PM NURSE CARD ADMIN [facility] WSTR CAWSTR During your visit today, we recorded the following information about you: JAYDEN Hoff 09/11/2018 3:09 PM Signed Preliminary report complete; results under imaging tab. JAYDEN Hoff RN 09/11/2018 3:24 PM Signed lexiscan 0.4mg/5ml given over 10 second IV push. Lot number [id number], exp date 09-04-2021. Patient tolerated injection well. Diony Flaherty RN Referring Provider: MICHAEL HERNANDEZ [[id number]] Allergies As of Date: 09/11/2018 (No Known Allergies) Date Reviewed: 08/29/2018 Reviewed by: Diony Flaherty RN - Fully Assessed Primary Visit Diagnosis:Chest pain, unspecified type [R07.9] Other Visit Diagnosis:PEREZ (dyspnea on exertion) [R06.09] Order(s):[place] CARDIAC PERF STRESS/PHARM [[id number]] Order #: [id number] Prescriptions as of 09/11/2018 Sig: ISOSORBIDE MONONITRATE ER 60 * Take 2.5 tablets by mouth onc* ASPIRIN 325 MG TABLET,DELAYED* Take 1 tablet by mouth once d* ATORVASTATIN 80 MG TABLET Take 1 tablet by mouth once d* CARVEDILOL 6.25 MG TABLET Take 1 tablet by mouth twice * FUROSEMIDE 40 MG TABLET Take 1 tablet by mouth once d* LOSARTAN 50 MG TABLET Take 1 tablet by mouth once d* NITROGLYCERIN 0.4 MG SUBLINGU* Dissolve 1 tablet under the t* ROPINIROLE 2 MG TABLET Take 1 tablet by mouth daily * NAPROXEN SODIUM ER (CR) 500 M* Take 500 mg by mouth daily wi* Problem List As Of Date 09/11/2018 Noted Resolved Pain in left shoulder [M25.512] INVALID FOR* Visit Notes: >> Diony Flaherty RN SunSep 11, 2018 3:23 PM Status: Signed lexiscan 0.4mg/5ml given over 10 second IV push. Lot number [id number], exp date 09-04-2021. Patient tolerated injection well. Diony Flaherty RN Encounter Status:Closed by Alberta STEVEN on 09/11/18 CNNURSE Observed: 08/29/2018 Status: COMPLETED Source: [place] 11:15 AM [facility] REPOSITORY Nurse Visit (CAW[facility]) SAVAGE ANDERS ([id number]) 1960 M Date Time Provider Department 08/29/18 11:15 AM [facility] During your visit today, we recorded the following information about you: Diony Flaherty RN 08/29/2018 4:59 PM Signed Ekg completed per order. Pt tolerated procedure without distress. Diony Flaherty RN Referring Provider: MICHAEL HERNANDEZ [[id number]] Allergies As of Date: 08/29/2018 (No Known Allergies) Date Reviewed: 08/29/2018 Reviewed by: Diony Flaherty RN - Fully Assessed Reason for Visit: Nurse Visit [792] Visit Diagnoses:ASHD (arteriosclerotic heart disease) [I25.10] Essential hypertension [I10] Order(s):ECG COMPLETE W INTERPRETATION [ECG01] Order #: [id number] Prescriptions as of 08/29/2018 Sig: REGADENOSON 0.4 MG/5 ML INTRA* Inject 5 mL intravenously one* ISOSORBIDE MONONITRATE ER 60 * Take 2.5 tablets by mouth onc* ASPIRIN 325 MG TABLET,DELAYED* Take 1 tablet by mouth once d* ATORVASTATIN 80 MG TABLET Take 1 tablet by mouth once d* CARVEDILOL 6.25 MG TABLET Take 1 tablet by mouth twice * FUROSEMIDE 40 MG TABLET Take 1 tablet by mouth once d* LOSARTAN 50 MG TABLET Take 1 tablet by mouth once d* NITROGLYCERIN 0.4 MG SUBLINGU* Dissolve 1 tablet under the t* ROPINIROLE 2 MG TABLET Take 1 tablet by mouth daily * NAPROXEN SODIUM ER (CR) 500 M* Take 500 mg by mouth daily wi* Problem List As Of Date 08/29/2018 Noted Resolved Pain in left shoulder [M25.512] INVALID FOR* Visit Notes: >> Diony Flaherty RN [facility] Aug 29, 2018 4:59 PM Status: Signed Ekg completed per order. Pt tolerated procedure without distress. Diony Flaherty RN Encounter Status:Closed by DIONY FLAHERTY RN on 08/29/18 PROGRESS Observed: 08/29/2018 Status: COMPLETED Source: [place] 11:08 AM [facility] REPOSITORY HNO ID: [id number] Author: Michael Hernandez Service: (none) Author Type: Physician Type: Progress Notes Filed: 08/31/2018 11:05 AM Note Text: PERTINENT CARDIAC HISTORY ASHD - CABGx3 (HAMILTON-LAD, SVG-OM1, SVG-PDA (occluded with L- R collaterals) 01/12 HTN HL Tobacco use DAVID - CPAP ADHERENCE TO GUIDELINES BINU-I or ARB for HF with prior LVEF<40 (NQF 0081) - N/A ASA or Plavix for ASHD (NQF 0067) - N/A Beta regla for ASHD with prior OH or prior LVEF<40 (NQF 0070) - N/A Beta regla for HF with prior LVEF<40 (NQF 0083) - N/A BINU-I or ARB for ASHD with DM or prior LVEF<40 (NQF 0066) - N/A Statin therapy for ASHD or FHL or DM - N/A BMI documented and plan if >25 (NQF 0421) - lifestyle recommendation form Tobacco use screening and referral (NQF 0028) - lifestyle recommendation form Recommendation for whole food, plant based diet - lifestyle recommendation form CLINICAL IMPRESSION/PLAN: Savage Anders has disabling symptoms suggesting myocardial ischemia. His most recent stress test was equivocal. There certainly appears to be some potential for ischemia in the right coronary territory and it is unclear whether percutaneous intervention would be helpful. we will update his stress test here and refer his angiography images to Irene for assessment of whether he would be a candidate for intervention. In the meantime, I have encouraged him to continue his current medication. His isosorbide will be changed to 120 milligrams as a single dose in the morning which should get better bioavailability. We will consider the use of Ranexa. He has been strongly advised to stop smoking. He will continue his current dose of Lipitor and aspirin. Beta regla will be continued. I have encouraged him not to exercise through chest discomfort for the time being. I will see him in one month or as needed. Written and verbal health teaching given to patient, patient verbalizes understanding and agrees with treatment plan. DIAGNOSIS FOR VISIT: ASHD HISTORY OF PRESENT ILLNESS Savage Anders is a 57-year-old gentleman who is seen at his request, for second opinion regarding his cardiac disease. He is being followed by the [facility]. He has a documented history of coronary disease. He underwent quadruple bypass at [facility] in December 2016. He is known to have lost the graft to his posterior descending although there are [id number] collaterals. He has multiple risk factors for coronary disease including ongoing ongoing tobacco use, hypertension and hyperlipidemia. He reports that he is having exertional chest discomfort which is nitrate responsive and similar to that he has experienced prior to his surgery. 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 He is having difficulty with shortness of breath on one flight of steps or with showering. He is having difficulty getting through his ADLs without assistance of his . He has had minimal symptoms at rest. He denies orthopnea. He's had mild edema. He has had no TIAs, amaurosis, claudication, palpitations or syncope Risk factors for coronary disease are multiple. His diet is high in normal products, although he states that he does not eat fast food. ALLERGIES: ALLERGIES No Known Allergies CURRENT OUTPATIENT MEDICATIONS: aspirin, enteric coated (ASPIRIN, ENTERIC COATED) 325 mg EC tablet Take 1 tablet by mouth once daily. Take with food. atorvastatin (LIPITOR) 80 mg tablet Take 1 tablet by mouth once daily. carvedilol (COREG) 6.25 mg tablet Take 1 tablet by mouth twice daily with meals. furosemide (LASIX) 40 mg tablet Take 1 tablet by mouth once daily. isosorbide mononitrate ER (IMDUR) 120 mg 24 hr tablet Take 120 mg by mouth daily at bedtime. isosorbide mononitrate ER (IMDUR) 60 mg 24 hr tablet Take 1 tablet by mouth once daily. losartan (COZAAR) 50 mg tablet Take 1 tablet by mouth once daily. nitroglycerin sublingual (NITROQUICK) 0.4 mg SL tablet Dissolve 1 tablet under the tongue every 5 minutes as needed for Chest Pain. rOPINIRole (REQUIP) 2 mg tablet Take 1 tablet by mouth daily at bedtime. Naproxen Sodium 500 mg 24 hr tablet Take 500 mg by mouth daily with breakfast. PAST MEDICAL HISTORY Diagnosis Date - CAD (coronary artery disease) - Hyperlipemia - Hypertension - RLS (restless legs syndrome) - Sleep apnea uses BiPAP PAST SURGICAL HISTORY Procedure Laterality Date - CORONARY ARTERY BYPASS GRAFT FAMILY HISTORY Problem Relation Age of Onset - Obesity Mother - Diabetes Mother type 2 - Heart Attack Father - Hypertension Father - Diabetes Brother type 2 - Heart Attack Paternal Grandfather Social History Marital status: Single Spouse name: Years of education: Number of children: Social History Main Topics Smoking status: Current Every Day Smoker Packs/day: 0.50 Years: 39.00 Smokeless tobacco: Never Used Alcohol use: Yes 4.5 oz/week Cans of Beer (12oz): 3 per week Comment: daily Drug use: Yes Frequency: 1.0 time per week Types: Marijuana Sexual activity: Yes Partners with: Female control/protection: Other Other Topics Concern Service No Blood Transfusions No Caffeine Concern No Occupational Exposure No Hobby Hazards No Sleep Concern Yes Comment:average 6 a night, daily naps Stress Concern No Weight Concern Yes Special Diet No Back Care Yes Exercise No Bike Helmet No Seat Belt Yes Self-Exams No REVIEW OF SYSTEMS: General: No chills, fever, weight loss, night sweats. SHEENT: No change in vision or auditory acuity. Respiratory: No productive cough. Cardiac: As noted above. GI: No melena. : No dysuria. Musculoskeletal: No myalgias. Neurologic: No strokes. Psychiatric: No depression. Endocrine: No diabetes. Hematologic: No anemia. PHYSICAL EXAMINATION: S/he is alert and in no distress VITAL SIGNS: BP 156/92 Pulse 82 Wt 256 lb 1.6 oz (116.2kg) SHEENT: Skin is warm and dry. Pupils are round and reactive. Retinal vessels are grossly unremarkable. No xanthelasmas appreciated. Pharynx is benign. There is no oral cyanosis. Neck: supple. No adenopathy or thyroid enlargement. Chest: Clear to auscultation. Trachea is midline. Air entry is equal. There is no chest wall tenderness. Cardiac: Regular rhythm. S1 and S2 are normal. PMI is nondisplaced. There is a soft systolic ejection murmur. No click is heard. Carotids are brisk without bruits. JVP is less than 10 cm. Abdomen: Soft and nontender. He is obese. There are no pulsatile masses or bruits. No liver enlargement. Bowel sounds are active. : Deferred. Extremities: No edema. Pulses are intact and symmetrical. No clubbing or cyanosis. No femoral bruits. Neurologic: Grossly normal motor and sensory. S/he is alert and oriented x4. Musculoskeletal: No joint deformities. EKG shows sinus rhythm. There is right axis deviation. No acute change is seen. Voluminous old records were reviewed. He has been followed in the office of the [facility]. He is known to have positive sleep study. There is no evidence of hypoxemia with exercise or significant obstructive airways disease. He recently underwent angiography. His saphenous graft to the right coronary is occluded. His mid right coronary is occluded. A large right ventricular branch gives collaterals from right to left. These images will be reviewed. Consideration has been given to intervention of the right coronary to attempt to provide more blood flow to the right ventricle. Recent stress test showed evidence of possible ischemia in the right coronary territory. LV function is normal by echo. There is no significant valvular disease and no evidence of pulmonary hypertension. CT of the chest showed no evidence of pulmonary embolism. Recent labs were reviewed. He is not anemic. Renal function is normal. LDL was 95. Electronically Signed: Michael Hernandez MD August 29, 2018 11:08 AM CC: No primary care provider on file. EKG1 Observed: 08/29/2018 Status: F Source: [place] 10:22 AM [facility] REPOSITORY NAME : SAVAGE ANDERS PID : [id number] : 1960 Gender : Male Race : ORD : Procedure Date : Aug 29 2018 10:22:11 Edit Date : Aug 30 2018 10:24:33 Diagnosis:NORMAL SINUS RHYTHM RIGHT AXIS POSSIBLE INFERIOR MYOCARDIAL INFARCTION , AGE UNDETERMINED BORDERLINE ECG NO PREVIOUS ECGS AVAILABLE Confirmed by MICHAEL HERNANDEZ MD ([id number]) on 08/30/2018 10:23:39 AM Ventricular Rate : 78 BPM Atrial Rate : 78 BPM P-R Interval : 146 ms QRS Duration : 96 ms Q-T Interval : 376 ms QTC Calculation(Bezet) : 428 ms P [place] : 51 degrees R [place] : 92 degrees T [place] : 32 degrees Test Reason : Location : 136 : CARFito Overread By : MICHAEL HERNANDEZ MD Edited By : MICHAEL HERNANDEZ MD Referred By : MICHAEL HERNANDEZ Acquired by : EMERALD AMBRIZ Observed: 08/29/2018 Status: COMPLETED Source: [place] 10:15 AM [facility] REPOSITORY Office Visit (CAWSTR) SAVAGE ANDERS ([id number]) 1960 M Date Time Provider Department 08/29/18 10:15 AM MICHAEL HERNANDEZ E CAWSTR During your visit today, we recorded the following information about you: Pulse Blood pressure Weight 82/minute 156/92 116.2 kg Michael Hernandez MD 08/31/2018 11:05 AM Signed PERTINENT CARDIAC HISTORY ASHD - CABGx3 (HAMILTON-LAD, SVG-OM1, SVG-PDA (occluded with L- R collaterals) 01/12 HTN HL Tobacco use DAVID - CPAP ADHERENCE TO GUIDELINES BINU-I or ARB for HF with prior LVEF<40 (NQF 0081) - N/A ASA or Plavix for ASHD (NQF 0067) - N/A Beta regla for ASHD with prior OH or prior LVEF<40 (NQF 0070) - N/A Beta regla for HF with prior LVEF<40 (NQF 0083) - N/A BINU-I or ARB for ASHD with DM or prior LVEF<40 (NQF 0066) - N/A Statin therapy for ASHD or FHL or DM - N/A BMI documented and plan if >25 (NQF 0421) - lifestyle recommendation form Tobacco use screening and referral (NQF 0028) - lifestyle recommendation form Recommendation for whole food, plant based diet - lifestyle recommendation form CLINICAL IMPRESSION/PLAN: Savage Anders has disabling symptoms suggesting myocardial ischemia. His most recent stress test was equivocal. There certainly appears to be some potential for ischemia in the right coronary territory and it is unclear whether percutaneous intervention would be helpful. we will update his stress test here and refer his angiography images to Irene for assessment of whether he would be a candidate for intervention. In the meantime, I have encouraged him to continue his current medication. His isosorbide will be changed to 120 milligrams as a single dose in the morning which should get better bioavailability. We will consider the use of Ranexa. He has been strongly advised to stop smoking. He will continue his current dose of Lipitor and aspirin. Beta regla will be continued. I have encouraged him not to exercise through chest discomfort for the time being. I will see him in one month or as needed. Written and verbal health teaching given to patient, patient verbalizes understanding and agrees with treatment plan. DIAGNOSIS FOR VISIT: ASHD HISTORY OF PRESENT ILLNESS Savage Anders is a 57-year-old gentleman who is seen at his request, for second opinion regarding his cardiac disease. He is being followed by the [facility]. He has a documented history of coronary disease. He underwent quadruple bypass at [facility] in December 2016. He is known to have lost the graft to his posterior descending although there are [id number] collaterals. He has multiple risk factors for coronary disease including ongoing ongoing tobacco use, hypertension and hyperlipidemia. He reports that he is having exertional chest discomfort which is nitrate responsive and similar to that he has experienced prior to his surgery. 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 He is having difficulty with shortness of breath on one flight of steps or with showering. He is having difficulty getting through his ADLs without assistance of his . He has had minimal symptoms at rest. He denies orthopnea. He's had mild edema. He has had no TIAs, amaurosis, claudication, palpitations or syncope Risk factors for coronary disease are multiple. His diet is high in normal products, although he states that he does not eat fast food. ALLERGIES: ALLERGIES No Known Allergies CURRENT OUTPATIENT MEDICATIONS: aspirin, enteric coated (ASPIRIN, ENTERIC COATED) 325 mg EC tablet Take 1 tablet by mouth once daily. Take with food. atorvastatin (LIPITOR) 80 mg tablet Take 1 tablet by mouth once daily. carvedilol (COREG) 6.25 mg tablet Take 1 tablet by mouth twice daily with meals. furosemide (LASIX) 40 mg tablet Take 1 tablet by mouth once daily. isosorbide mononitrate ER (IMDUR) 120 mg 24 hr tablet Take 120 mg by mouth daily at bedtime. isosorbide mononitrate ER (IMDUR) 60 mg 24 hr tablet Take 1 tablet by mouth once daily. losartan (COZAAR) 50 mg tablet Take 1 tablet by mouth once daily. nitroglycerin sublingual (NITROQUICK) 0.4 mg SL tablet Dissolve 1 tablet under the tongue every 5 minutes as needed for Chest Pain. rOPINIRole (REQUIP) 2 mg tablet Take 1 tablet by mouth daily at bedtime. Naproxen Sodium 500 mg 24 hr tablet Take 500 mg by mouth daily with breakfast. PAST MEDICAL HISTORY Diagnosis Date - CAD (coronary artery disease) - Hyperlipemia - Hypertension - RLS (restless legs syndrome) - Sleep apnea uses BiPAP PAST SURGICAL HISTORY Procedure Laterality Date - CORONARY ARTERY BYPASS GRAFT FAMILY HISTORY Problem Relation Age of Onset - Obesity Mother - Diabetes Mother type 2 - Heart Attack Father - Hypertension Father - Diabetes Brother type 2 - Heart Attack Paternal Grandfather Social History Marital status: Single Spouse name: Years of education: Number of children: Social History Main Topics Smoking status: Current Every Day Smoker Packs/day: 0.50 Years: 39.00 Smokeless tobacco: Never Used Alcohol use: Yes 4.5 oz/week Cans of Beer (12oz): 3 per week Comment: daily Drug use: Yes Frequency: 1.0 time per week Types: Marijuana Sexual activity: Yes Partners with: Female control/protection: Other Other Topics Concern Service No Blood Transfusions No Caffeine Concern No Occupational Exposure No Hobby Hazards No Sleep Concern Yes Comment:average 6 a night, daily naps Stress Concern No Weight Concern Yes Special Diet No Back Care Yes Exercise No Bike Helmet No Seat Belt Yes Self-Exams No REVIEW OF SYSTEMS: General: No chills, fever, weight loss, night sweats. SHEENT: No change in vision or auditory acuity. Respiratory: No productive cough. Cardiac: As noted above. GI: No melena. : No dysuria. Musculoskeletal: No myalgias. Neurologic: No strokes. Psychiatric: No depression. Endocrine: No diabetes. Hematologic: No anemia. PHYSICAL EXAMINATION: S/he is alert and in no distress VITAL SIGNS: BP 156/92 Pulse 82 Wt 256 lb 1.6 oz (116.2kg) SHEENT: Skin is warm and dry. Pupils are round and reactive. Retinal vessels are grossly unremarkable. No xanthelasmas appreciated. Pharynx is benign. There is no oral cyanosis. Neck: supple. No adenopathy or thyroid enlargement. Chest: Clear to auscultation. Trachea is midline. Air entry is equal. There is no chest wall tenderness. Cardiac: Regular rhythm. S1 and S2 are normal. PMI is nondisplaced. There is a soft systolic ejection murmur. No click is heard. Carotids are brisk without bruits. JVP is less than 10 cm. Abdomen: Soft and nontender. He is obese. There are no pulsatile masses or bruits. No liver enlargement. Bowel sounds are active. : Deferred. Extremities: No edema. Pulses are intact and symmetrical. No clubbing or cyanosis. No femoral bruits. Neurologic: Grossly normal motor and sensory. S/he is alert and oriented x4. Musculoskeletal: No joint deformities. EKG shows sinus rhythm. There is right axis deviation. No acute change is seen. Voluminous old records were reviewed. He has been followed in the office of the [facility]. He is known to have positive sleep study. There is no evidence of hypoxemia with exercise or significant obstructive airways disease. He recently underwent angiography. His saphenous graft to the right coronary is occluded. His mid right coronary is occluded. A large right ventricular branch gives collaterals from right to left. These images will be reviewed. Consideration has been given to intervention of the right coronary to attempt to provide more blood flow to the right ventricle. Recent stress test showed evidence of possible ischemia in the right coronary territory. LV function is normal by echo. There is no significant valvular disease and no evidence of pulmonary hypertension. CT of the chest showed no evidence of pulmonary embolism. Recent labs were reviewed. He is not anemic. Renal function is normal. LDL was 95. Electronically Signed: Michael Hernandez MD August 29, 2018 11:08 AM CC: No primary care provider on file. Michael Hernandez MD 08/29/2018 11:09 AM Signed LIFESTYLE CHANGE A healthy lifestyle is the most important component of your overall treatment plan. Please give serious thought to the following areas and commit to making manager intermediate changes. EAT A WHOLE FOOD, PLANT BASED DIET The nutrition your body gets is more important than the medicine you take. What matters most is the overall way you eat. We encourage you to minimize the use of animal products (which include dairy and all meats except fatty fish) and use whole, unprocessed plant foods to provide your protein, vitamins and other nutrients. We have a lot of information to share with you on this topic. This is not a diet. It is a way of life that you will keep with you. EXERCISE REGULARLY It is not important to spend hours in the gym, lifting weights and perspiring heavily. A total of 2-3 hours per week of aerobic (causing you to be moderately short of breath) exercise is sufficient to improve your health. Talk to us before you begin a new exercise program, if you have heart disease or experience shortness of breath or chest pain. REDUCE STRESS Chronic emotional and physical stress leads to disease. Ways of reducing stress include meditation, visualization, prayer, yoga and other forms of relaxation therapy. Consistency is the bermeo. Find a technique that works for you and do it every day. CULTIVATE RELATIONSHIPS Loneliness and isolation have a major negative impact on health. Seek out others who can love, care for and nurture you. Avoid hurtful relationships. MAINTAIN IDEAL BODY WEIGHT The best way to do this is to do all the things above. Our bodies naturally find the right weight if we keep moving and feed ourselves the right food. If your BMI is greater than 25, we strongly recommend a referral to a weight management program. Please speak to us or your family physician about available programs. AVOID NICOTINE IN ALL FORMS This includes all tobacco products, whether chewed, smoked, vaped, or rubbed on the skin. Smoking cessation programs, which can make use of tobacco substitutes, medications to suppress cravings and behavior management, are available. Please contact your family physician about programs in your area. Referring Provider: SELF [[id number]] Allergies As of Date: 08/29/2018 (No Known Allergies) Date Reviewed: 08/29/2018 Reviewed by: Diony Flaherty RN - Fully Assessed Reason for Visit: Consult [502] Primary Visit Diagnosis:ASHD (arteriosclerotic heart disease) [I25.10] Other Visit Diagnoses:Essential hypertension [I10] Encounter for screening for cardiovascular disorders [Z13.6] Order(s):ECG COMPLETE W INTERPRETATION [ECG01] Order #: [id number] FUTURE IV DISCONTINUE [[id number]] Order #: [id number]: 1 IV START - SPECIFY [[id number]] Order #: [id number]: 1 [] regadenoson (LEXISCAN) 0.4 mg/5 mL syrgInject 5 mL intravenously one time only for 1 dose. Give IV push over 10 seconds and follow with 5 ml of normal salineDisp: 5 mLRfl: 0 NM CARDIAC PERF STRESS/PHARM [[id number]] Order #: [id number] isosorbide mononitrate ER (IMDUR) 60 mg 24 hr tabletTake 2.5 tablets by mouth once daily.Disp: Rfl: Prescriptions as of 08/29/2018 Sig: ISOSORBIDE MONONITRATE ER 60 * Take 2.5 tablets by mouth onc* ASPIRIN 325 MG TABLET,DELAYED* Take 1 tablet by mouth once d* ATORVASTATIN 80 MG TABLET Take 1 tablet by mouth once d* CARVEDILOL 6.25 MG TABLET Take 1 tablet by mouth twice * FUROSEMIDE 40 MG TABLET Take 1 tablet by mouth once d* LOSARTAN 50 MG TABLET Take 1 tablet by mouth once d* NITROGLYCERIN 0.4 MG SUBLINGU* Dissolve 1 tablet under the t* ROPINIROLE 2 MG TABLET Take 1 tablet by mouth daily * REGADENOSON 0.4 MG/5 ML INTRA* Inject 5 mL intravenously one* NAPROXEN SODIUM ER (CR) 500 M* Take 500 mg by mouth daily wi* Problem List As Of Date 08/29/2018 Noted Resolved Pain in left shoulder [M25.512] INVALID FOR* Other instructions from your clinician: LIFESTYLE CHANGE A healthy lifestyle is the most important component of your overall treatment plan. Please give serious thought to the following areas and commit to making detention changes. EAT A WHOLE FOOD, PLANT BASED DIET The nutrition your body gets is more important than the medicine you take. What matters most is the overall way you eat. We encourage you to minimize the use of animal products (which include dairy and all meats except fatty fish) and use whole, unprocessed plant foods to provide your protein, vitamins and other nutrients. We have a lot of information to share with you on this topic. This is not a diet. It is a way of life that you will keep with you. EXERCISE REGULARLY It is not important to spend hours in the gym, lifting weights and perspiring heavily. A total of 2-3 hours per week of aerobic (causing you to be moderately short of breath) exercise is sufficient to improve your health. Talk to us before you begin a new exercise program, if you have heart disease or experience shortness of breath or chest pain. REDUCE STRESS Chronic emotional and physical stress leads to disease. Ways of reducing stress include meditation, visualization, prayer, yoga and other forms of relaxation therapy. Consistency is the bermeo. Find a technique that works for you and do it every day. CULTIVATE RELATIONSHIPS Loneliness and isolation have a major negative impact on health. Seek out others who can love, care for and nurture you. Avoid hurtful relationships. MAINTAIN IDEAL BODY WEIGHT The best way to do this is to do all the things above. Our bodies naturally find the right weight if we keep moving and feed ourselves the right food. If your BMI is greater than 25, we strongly recommend a referral to a weight management program. Please speak to us or your family physician about available programs. AVOID NICOTINE IN ALL FORMS This includes all tobacco products, whether chewed, smoked, vaped, or rubbed on the skin. Smoking cessation programs, which can make use of tobacco substitutes, medications to suppress cravings and behavior management, are available. Please contact your family physician about programs in your area. Prescriptions ordered this encounter Disp Refills Start End REGADENOSON 0.4 MG/5 ML INTRAVENOUS * 5 mL 0 08/29/2018 08/29/2018 Class: In Office Route: INTRAVENOUS Sig: Inject 5 mL intravenously one time only for 1 dose. Give IV push over 10 seconds and follow with 5 ml of normal saline ISOSORBIDE MONONITRATE ER 60 MG TABL* 08/29/2018 Class: Med Update Route: ORAL Sig: Take 2.5 tablets by mouth once daily. Medications Discontinued During This Encounter isosorbide mononitrate ER (IMDUR) 12* 08/27/2018 08/29/2018 Class: Historical Med Route: ORAL Sig: Take 120 mg by mouth daily at bedtime. Disc: Reason for discontinue is not on file. isosorbide mononitrate ER (IMDUR) 60* 08/27/2018 08/29/2018 Class: Historical Med Route: ORAL Sig: Take 1 tablet by mouth once daily. Disc: Reason for discontinue is not on file. Encounter Status:Closed by MICHAEL HERNANDEZ MD on 08/31/18 PROGRESS Observed: 08/27/2018 Status: COMPLETED Source: [place] 1:56 PM [facility] RE[facility] HNO ID: [id number] Author: Liz Sawant (Fitness Services Manager) [facility] Service: (none) Author Type: Nurse Practitioner Type: Progress Notes Filed: 08/27/2018 2:46 PM Note Text: This note was created using [employer]. Tsering Anders is a 57 year old male who presents to office for new adult wellness exam. See review of systems for patient complaints. Review of Systems Constitutional: Positive for activity change, chills and diaphoresis. Negative for appetite change, fatigue, fever and unexpected weight change. HENT: Negative for congestion, dental problem, drooling, ear discharge, ear pain, facial swelling, hearing loss, mouth sores, nosebleeds, postnasal drip, rhinorrhea, sinus pain, sinus pressure, sneezing, sore throat, tinnitus, trouble swallowing and voice change. Last dental exam 22 years ago. Eyes: Negative for photophobia, pain, discharge, redness, itching and visual disturbance. Last vision exam 3 years ago.Wears glasses, Respiratory: Positive for cough, shortness of breath and wheezing. Negative for apnea, choking, chest tightness and stridor. Currently all the time. Seems to happen with all movement. Cardiovascular: Positive for leg swelling. Negative for chest pain and palpitations. Gastrointestinal: Negative for abdominal distention, abdominal pain, anal bleeding, blood in stool, constipation, diarrhea, nausea, rectal pain and vomiting. Never had a colonoscopy. Endocrine: Negative for cold intolerance, heat intolerance, polydipsia, polyphagia and polyuria. Genitourinary: Negative for decreased urine volume, difficulty urinating, discharge, dysuria, enuresis, flank pain, frequency, genital sores, hematuria, penile pain, penile swelling, scrotal swelling, testicular pain and urgency. Musculoskeletal: Positive for arthralgias, back pain and myalgias. Negative for gait problem, joint swelling, neck pain and neck stiffness. Skin: Negative for color change, pallor, rash and wound. Allergic/Immunologic: Negative for environmental allergies, food allergies and immunocompromised state. Neurological: Negative for dizziness, tremors, seizures, syncope, facial asymmetry, speech difficulty, weakness, light-headedness, numbness and headaches. Hematological: Negative for adenopathy. Does not bruise/bleed easily. Psychiatric/Behavioral: Negative for agitation, behavioral problems, confusion, decreased concentration, dysphoric mood, hallucinations, self-injury, sleep disturbance and suicidal ideas. The patient is nervous/anxious. The patient is not hyperactive. Objective BP 134/88 Pulse 84 Resp 16 Ht 172.7 cm (5' 8) Wt 115.2 kg (254 lb) BMI 38.62 kg/m? Physical Exam Constitutional: Vital signs are normal. He appears well-developed. HENT: Head: Normocephalic. Right Ear: Hearing, tympanic membrane, external ear and ear canal normal. Left Ear: Hearing, tympanic membrane, external ear and ear canal normal. Nose: Nose normal. Right sinus exhibits no maxillary sinus tenderness and no frontal sinus tenderness. Left sinus exhibits no maxillary sinus tenderness and no frontal sinus tenderness. Mouth/Throat: Uvula is midline, oropharynx is clear and moist and mucous membranes are normal. Eyes: Pupils are equal, round, and reactive to light. Conjunctivae, EOM and lids are normal. Lids are everted and swept, no foreign bodies found. Neck: Trachea normal, normal range of motion and full passive range of motion without pain. Cardiovascular: Normal rate, regular rhythm, S1 normal, S2 normal, normal heart sounds and normal pulses. Pulmonary/Chest: Effort normal and breath sounds normal. Abdominal: Soft. Normal appearance and bowel sounds are normal. There is no hepatosplenomegaly, splenomegaly or hepatomegaly. There is no tenderness. Musculoskeletal: Normal range of motion. Lymphadenopathy: Head (right side): No submental, no submandibular, no tonsillar, no preauricular, no posterior auricular and no occipital adenopathy present. Head (left side): No submental, no submandibular, no tonsillar, no preauricular, no posterior auricular and no occipital adenopathy present. Neurological: He is alert. He has normal strength and normal reflexes. No cranial nerve deficit or sensory deficit. He displays a negative Romberg sign. GCS eye subscore is 4. GCS verbal subscore is 5. GCS motor subscore is 6. Skin: Skin is warm and intact. Capillary refill takes 2 to 3 seconds. No abrasion noted. No erythema. Psychiatric: He has a normal mood and affect. His speech is normal and behavior is normal. Judgment and thought content normal. Cognition and memory are normal. ASSESSMENT/PLAN: 1. Encounter for routine history and physical examination of adult - ICD9: V70.0, ICD10: Z00.00 - Colon cancer screening reviewed and colonoscopy recommended. Patient declines testing at this time. - Vaccination(s) recommended today: declines influenza and PNA - Follow up for annual exam in one year. - scheduled to see Dr. Sykes on 08/29/2018 to establish care - will follow with pulmonary for DAVID and RLS - to sign release for previous medical records. Will order labs based on records. Liz Carmona APRN.CNP CNOV Observed: 08/27/2018 Status: COMPLETED Source: [place] 1:20 PM [facility] REPOSITORY [facility] SAVAGE ANDERS ([id number]) 1960 M Date Time Provider Department 08/27/18 1:20 PM [facility] During your visit today, we recorded the following information about you: Pulse Respiration Blood pressure Weight 84/minute 16/minute 134/88 115.2 kg Height 1.727 m Liz Carmona APRN.CNP 08/27/2018 2:46 PM Signed This note was created using [email or web address]. Subjective Savagefito Anders is a 57 year old male who presents to office for new adult wellness exam. See review of systems for patient complaints. Review of Systems Constitutional: Positive for activity change, chills and diaphoresis. Negative for appetite change, fatigue, fever and unexpected weight change. HENT: Negative for congestion, dental problem, drooling, ear discharge, ear pain, facial swelling, hearing loss, mouth sores, nosebleeds, postnasal drip, rhinorrhea, sinus pain, sinus pressure, sneezing, sore throat, tinnitus, trouble swallowing and voice change. Last dental exam 22 years ago. Eyes: Negative for photophobia, pain, discharge, redness, itching and visual disturbance. Last vision exam 3 years ago.Wears glasses, Respiratory: Positive for cough, shortness of breath and wheezing. Negative for apnea, choking, chest tightness and stridor. Currently all the time. Seems to happen with all movement. Cardiovascular: Positive for leg swelling. Negative for chest pain and palpitations. Gastrointestinal: Negative for abdominal distention, abdominal pain, anal bleeding, blood in stool, constipation, diarrhea, nausea, rectal pain and vomiting. Never had a colonoscopy. Endocrine: Negative for cold intolerance, heat intolerance, polydipsia, polyphagia and polyuria. Genitourinary: Negative for decreased urine volume, difficulty urinating, discharge, dysuria, enuresis, flank pain, frequency, genital sores, hematuria, penile pain, penile swelling, scrotal swelling, testicular pain and urgency. Musculoskeletal: Positive for arthralgias, back pain and myalgias. Negative for gait problem, joint swelling, neck pain and neck stiffness. Skin: Negative for color change, pallor, rash and wound. Allergic/Immunologic: Negative for environmental allergies, food allergies and immunocompromised state. Neurological: Negative for dizziness, tremors, seizures, syncope, facial asymmetry, speech difficulty, weakness, light-headedness, numbness and headaches. Hematological: Negative for adenopathy. Does not bruise/bleed easily. Psychiatric/Behavioral: Negative for agitation, behavioral problems, confusion, decreased concentration, dysphoric mood, hallucinations, self- injury, sleep disturbance and suicidal ideas. The patient is nervous/anxious. The patient is not hyperactive. Objective BP 134/88 Pulse 84 Resp 16 Ht 172.7 cm (5' 8) Wt 115.2 kg (254 lb) BMI 38.62 kg/m? Physical Exam Constitutional: Vital signs are normal. He appears well-developed. HENT: Head: Normocephalic. Right Ear: Hearing, tympanic membrane, external ear and ear canal normal. Left Ear: Hearing, tympanic membrane, external ear and ear canal normal. Nose: Nose normal. Right sinus exhibits no maxillary sinus tenderness and no frontal sinus tenderness. Left sinus exhibits no maxillary sinus tenderness and no frontal sinus tenderness. Mouth/Throat: Uvula is midline, oropharynx is clear and moist and mucous membranes are normal. Eyes: Pupils are equal, round, and reactive to light. Conjunctivae, EOM and lids are normal. Lids are everted and swept, no foreign bodies found. Neck: Trachea normal, normal range of motion and full passive range of motion without pain. Cardiovascular: Normal rate, regular rhythm, S1 normal, S2 normal, normal heart sounds and normal pulses. Pulmonary/Chest: Effort normal and breath sounds normal. Abdominal: Soft. Normal appearance and bowel sounds are normal. There is no hepatosplenomegaly, splenomegaly or hepatomegaly. There is no tenderness. Musculoskeletal: Normal range of motion. Lymphadenopathy: Head (right side): No submental, no submandibular, no tonsillar, no preauricular, no posterior auricular and no occipital adenopathy present. Head (left side): No submental, no submandibular, no tonsillar, no preauricular, no posterior auricular and no occipital adenopathy present. Neurological: He is alert. He has normal strength and normal reflexes. No cranial nerve deficit or sensory deficit. He displays a negative Romberg sign. GCS eye subscore is 4. GCS verbal subscore is 5. GCS motor subscore is 6. Skin: Skin is warm and intact. Capillary refill takes 2 to 3 seconds. No abrasion noted. No erythema. Psychiatric: He has a normal mood and affect. His speech is normal and behavior is normal. Judgment and thought content normal. Cognition and memory are normal. ASSESSMENT/PLAN: 1. Encounter for routine history and physical examination of adult - ICD9: V70.0, ICD10: Z00.00 - Colon cancer screening reviewed and colonoscopy recommended. Patient declines testing at this time. - Vaccination(s) recommended today: declines influenza and PNA - Follow up for annual exam in one year. - scheduled to see Dr. Sykes on 08/29/2018 to establish care - will follow with pulmonary for DAVDI and RLS - to sign release for previous medical records. Will order labs based on records. Liz Carmona APRN.TAX PROFESSIONAL Referring Provider: SELF [[id number]] Allergies As of Date: 08/27/2018 (No Known Allergies) Date Reviewed: 08/27/2018 Reviewed by: Bernie Marti Apn Student - Fully Assessed Reason for Visit: Establish Care [42] Primary Visit Diagnosis:Encounter for routine history and physical examination of adult [Z00.00] Prescriptions as of 08/27/2018 Sig: ASPIRIN 325 MG TABLET,DELAYED* Take 1 tablet by mouth once d* ATORVASTATIN 80 MG TABLET Take 1 tablet by mouth once d* CARVEDILOL 6.25 MG TABLET Take 1 tablet by mouth twice * FUROSEMIDE 40 MG TABLET Take 1 tablet by mouth once d* ISOSORBIDE MONONITRATE ER 120* Take 1 tablet by mouth once d* ISOSORBIDE MONONITRATE ER 60 * Take 1 tablet by mouth once d* LOSARTAN 50 MG TABLET Take 1 tablet by mouth once d* NITROGLYCERIN 0.4 MG SUBLINGU* Dissolve 1 tablet under the t* ROPINIROLE 2 MG TABLET Take 1 tablet by mouth daily * NAPROXEN SODIUM ER (CR) 500 M* Take 500 mg by mouth daily wi* Problem List As Of Date 08/27/2018 Noted Resolved Pain in left shoulder [M25.512] INVALID FOR* Medications Discontinued During This Encounter HYDROcodone-acetaminophen (NORCO) 5-* 08/27/2018 Class: Historical Med Route: ORAL Sig: Take 1 tablet by mouth every 6 hours as needed. Disc: Reason for discontinue is not on file. Encounter Status:Closed by LIZ CARMONA CNP on 08/27/18 PULMONARY VISIT REPORT Observed: 07/19/2018 Status: F Source: [place] 9:13 AM [facility] [place] REPOSITORY Pulmonary Medicine of [address] [place] [address] OFFICE VISIT Date of Service: 07/18/18 MR#: [id number] Acct: [id number] Name: SAVAGE ANDERS II Rep #: [id number] : 1960 Provider: Nahomy Pino Age/Sex: 57/M Location[place] [facility] [place] Status: Signed Assessment AND Plan 1. RLS (restless legs syndrome) G25.81 Plan Patient recently started on ropinirole with no relief. Will increase to 2 mg at bedtime. He has been encouraged to contact the office to update us on how he has responded to the medication. Follow-up with Dr. Jha in 3 months. 2. DAVID (obstructive sleep apnea) G47.33 Plan Stable. Compliance report reviewed. Patient does not report problems. Plan Detail Other Medications New: Follow Up 3 Months (DMB) HPI 1 M FU: Chief Complaint: Restless legs HPI Comments Details: Patient is a 57-year-old male who presents to the office today, with his fianc e, for follow-up of his restless leg syndrome. He was recently started on a new medication to treat his restless leg syndrome and he is here to follow-up on how he responded to the medication. He is ambulating and on room air. Patient was recently started on ropinirole. He states for about the first week he took 1 tablet (0.5 mg) nightly and noticed no effect. He increased to 2 tablets (1 mg) every night and still has noticed no relief. He feels restless at bedtime and has trouble falling asleep. He continued with compliance with his pressure support therapy even though he continued to experience restless legs. He states he is compliant with his Pap therapy. Denies any issues with use, daytime hypersomnolence or headache. See complete review of systems. He continues to experience shortness of breath on exertion, this has not changed. He does have an occasional dry cough. He reports occasional wheezing and chest tightness, he does use his rescue inhaler for symptom relief. He denies any fever, chills or body aches. Compliance report for the past 30 days has been reviewed. Usage 90%. Average usage 7 hours 11 minutes. Settings 14/10. Average AHI 1.6 per hour. Leaks do not appear to be a problem. Intake Vital Signs07/18/18 Height 5 ft 9 in 07/18/18 Weight: 253 lb Intake Visit Reasons: 1 M FU [facility] [place] [place] Vendor: Amelia Allergies No Known Allergies Allergy (Verified 07/18/18 12:46) Medications Aspirin 81 mg PO DAILY@0800 10/27/16 [History Confirmed 07/16/18] Ergocalciferol [Vitamin D] 50,000 unit PO PEREZ 07/25/17 [History Confirmed 07/16/18] atorvastatin 80 mg tablet 80 mg PO QHS #30 tab 12/03/17 [Rx Confirmed 07/16/18] isosorbide mononitrate ER 60 mg tablet,extended release 24 hr 60 mg PO QAM #90 tab 03/15/18 [Rx Confirmed 07/16/18] nitroglycerin 0.4 mg sublingual tablet 0.4 mg SUBLINGUAL Q5M PRN #25 tab 04/11/18 [Rx Confirmed 07/16/18] Automatic Blood Pressure Machine #1 ea 04/12/18 [Rx Confirmed 07/16/18] carvedilol 6.25 mg tablet 6.25 mg PO BID #60 tab 04/12/18 [Rx Confirmed 07/16/18] furosemide 40 mg tablet 40 mg PO QDAY #30 tab 04/12/18 [Rx Confirmed 07/16/18] losartan 50 mg tablet 50 mg PO QDAY #30 tab 04/12/18 [Rx Confirmed 07/16/18] Isosorbide Mononitrate [Imdur] 120 mg PO .COMPLEX 04/16/18 [History Confirmed 07/16/18] ropinirole 0.5 mg tablet 0.5 mg PO QHS #60 tab 06/18/18 [Rx Confirmed 07/16/18] clopidogrel 75 mg tablet 75 mg PO QDAY #90 tab 07/15/18 [Rx Confirmed 07/16/18] Disability Placard #1 ea 07/18/18 [Rx Confirmed 07/18/18] ropinirole 2 mg tablet 2 mg PO QHS #30 tab 07/18/18 [Rx Confirmed 07/18/18] [facility] Medical History Atherosclerosis of other coronary artery bypass graft(s) with other forms of angina pectoris (Chronic) Atherosclerosis of coronary artery of [place] heart without angina pectoris (Acute) Obesity (Chronic) Hyperlipidemia (Chronic) Nicotine dependence in remission (Chronic) Hypertension (Chronic) Abnormal stress test (Resolved) Surgical History History of left heart catheterization (Chronic 04/17/18) Presence of aortocoronary bypass graft (Chronic 01/15/17) Family History Father Heart disease Mother CVA (cerebral vascular accident) Social History Smoking Status: Light Smoker (<10/day) second hand exposure: Yes alcohol intake: current alcohol intake frequency: a few times a week Alcohol type: beer substance use type: does not use caffeine: No what type of physical activity do you participate in: other details: cardiac rehab frequency: 3-4 times per week Review of Systems Const CONSTITUTIONAL: Positive chills, night sweats and fatigue; negative anorexia, body ache, daytime sleepiness, fever(s), oral thrush, stops breathing during sleep, weight loss, sleeping in chair, weight loss, weight gain, frequent colds, seasonal allergies, other, headache(s) or orthopnea EETM Ear Nose Throat Mouth: Positive hearing normal; negative hard of hearing, hoarseness, dry mouth in morning, change in vision, itchy eyes, eye pain, swallowing Difficulty, ear pain, nose bleed, headache(s), mouth pain, nasal congestion, nasal discharge, post nasal drip, sinus pain, sinus pressure, sore throat or other Cardio Cardiovascular: Negative chest pain, chest pain at rest, chest pain with activity, irregular heart rhythm, edema, shortness of breath when lying down, palpitations, murmur or other Resp Respiratory: Positive as per HPI, shortness of breath shortness of breath: Positive with activity and wheezing; negative pain with cough, chest congestion, cough, chest tightness, pain on inspiration, inhalers, increase use of rescue inhalers, snoring, apnea or other Gastro Gastrointestional: Negative bloody stools, change in appetite, difficulty swallowing, reflux, hematemesis, melena stool, loose stool, constipation or other Genitourinary: Negative blood in urine, nocturia, pain with urination or other Musc Musculoskeletal: Negative body pain, back pain, neck pain or other Skin/Breast Skin/Breast: Negative dry skin, itching, rash, unusual bruising, breast lump or other Neuro Neurological: Positive restless legs; negative confusion, weakness or other Psych Psychocological: Positive abnormal sleep pattern; negative anxiety, thoughts of hurting self/others, hopelessness or other Lymph Lymphatic: Negative easy bleeding, easy bruising, swollen lymph nodes or other Exam Const Constitutional: Positive conversant, cooperative, in no acute respiratory distress, healthy appearing, well developed, well nourished, poor hygiene and obese Head Head: Positive normocephalic and atraumatic; negative cyanosis of lips/distal nose Eyes Eye: Positive clear conjunctiva; negative scleral abnormality Ears Ear: Positive hearing normal and external ears normal; negative hard of hearing Nose Nose: Positive external nose normal and no nasal discharge; negative epistaxis Mouth Mouth: Positive oral mucosae normal and posterior oropharynx is adequate; negative post nasal drip or oral thrush present Mallampati Score: III: Mallampati Score Neck Neck: Positive normal visual inspection, full ROM and trachea midline; negative lymphadenopathy, JVD or tender Chest Wall Chest: Positive normal inspection of the chest and symmetric chest movement; negative increased A/P diameter Resp lung sounds: Positive clear to auscultation, good air exchange, normal expiratory time and normal respiratory effort; negative diminished, wheezes, rhonchi, rales, dullness to percussion or wheeze present on forced exhalation Cardio Cardiac: Positive regular rate, regular rhythm, S1 normal and S2 normal; negative murmur GI GI: Positive normal to inspection and obese; negative distended Genitourinary: Positive deferred Musc Musculoskeletal: Positive steady gait and ROM normal; negative kyphosis or scoliosis Skin Pulmonary Skin Exam: Positive intact; negative rash Pulses Pulse: Yes radial pulses present Extremities Extremities: Yes capillary refill normal, No clubbing Neuro Neurologic: Yes conversant, Yes cooperative, Yes normal cognition, Yes understands questions Lymph Lymphatic: No lymphadenopathy Psych Appearance: Positive grossly normal, eye contact and well kempt Mental Status: Positive mental status grossly normal Mood: Positive congruent mood Affect: Positive normal affect Coding Level of Care Code Off vis,est,level 3 Diagnoses RLS (restless legs syndrome) G25.81 DAVID (obstructive sleep apnea) G47.33 07/19/18 0913 <Electronically signed by Nahomy DAVILA> Date Nahomy DAVILA Cosigner Signature: Date (if applicable) CC: PULMONARY VISIT REPORT Observed: 06/20/2018 Status: F Source: [place] 10:00 AM [facility] [place] REPOSITORY Pulmonary Medicine of [address] [place] [address] OFFICE VISIT Date of Service: 06/18/18 MR#: [id number] Acct: [id number] Name: SAVAGE ANDERS ULISES Rep #: [id number] : 1960 Provider: Nahomy Pino Age/Sex: 57/M Location: [facility] Status: Signed Assessment AND Plan 1. DAVID (obstructive sleep apnea) G47.33 Plan Stable. He is using and benefiting from chemotherapy, however does report restlessness and on his sleep study does show an elevated RDI. We will be placing him on ropinirole to begin at 0.5 mg per night for at least 3 nights. If symptoms not controlled on this dose he may increase to 1 mg nightly. He has been encouraged to contact the office if he does not respond well to this medication or if he experiences any medication side effects. He conveys understanding and is agreeable with this plan. 2. PEREZ (dyspnea on exertion) R06.09 Plan Last walking oximetry shows the patient does not currently require submental oxygen. We will continue to monitor this, he does have diastolic dysfunction noted on the echocardiogram which may improve with several months on Pap therapy. Patient conveys understanding. 3. Class 2 severe obesity due to excess calories with serious comorbidity and body mass index (BMI) of 36.0 to 36.9 in adult E66.01 Plan Continue to encourage weight loss. 4. Cigarette nicotine dependence in remission F17.211 Plan Deteriorated. Patient encouraged to stop smoking. Did discuss that smoking puts him at higher risk for lung cancer. Most recent CTA of the chest did not note any nodules, he discussed this with the patient and his which did provide him with reassurance. Plan Detail Other Medications New: HPI 2 M FU: Chief Complaint: Shortness of breath HPI Comments Details: This patient sent to the office today to follow-up on his shortness of breath and obstructive sleep apnea. He is ambulatory, currently on room air and accompanied today by his . He has not been seen in the ED or urgent care for respiratory illnesses since last office visit. He has not required any antibiotics or prednisone for breathing problems. He is not currently on any inhalers. He does report continued shortness of breath on exertion, believes that it may have worsened since his last office visit. He admits that he has been suffering from depression and has began smoking again, is up to approximately 1 pack per day. He also admits to daily use of alcohol. He is concerned about his risk of lung cancer. He denies any cough, sputum production or hemoptysis. He has not had any unintentional weight loss. Denies any bleeding problems, such as hemoptysis, hematemesis, hematochezia or melena stools. He denies any wheezing or chest tightness. He has not experienced any fever, chills or body aches. He denies any chest pain or palpitations. He does report compliance with his Pap therapy. He reports occasional air leaks that he believes are related to position change. He does report restlessness and difficulty remaining asleep. He believes he is feeling more rested with the institution of the Pap therapy. He denies any difficulty with dry mouth and is not snoring through the mask. Complaints report for the past 30 days has been reviewed and shows 83% compliance. Average use is 7 hours per night. Current settings are 14/10 cm of water. AHI is controlled at 1.4 events per hour and leaks appear to be only an occasional issue. Intake Vital Signs06/18/18 Height 5 ft 9 in 06/18/18 Weight: 253 lb Intake Visit Reasons: 2 M FU [facility] [place] Vendor: [employer] Accompanied by: Family / Other Allergies No Known Allergies Allergy (Verified 06/18/18 09:50) Medications Aspirin 81 mg PO DAILY@0800 10/27/16 [History Confirmed 06/18/18] Ergocalciferol [Vitamin D] 50,000 unit PO PEREZ 07/25/17 [History Confirmed 06/18/18] atorvastatin 80 mg tablet 80 mg PO QHS #30 tab 12/03/17 [Rx Confirmed 06/18/18] isosorbide mononitrate ER 60 mg tablet,extended release 24 hr 60 mg PO QAM #90 tab 03/15/18 [Rx Confirmed 06/18/18] nitroglycerin 0.4 mg sublingual tablet 0.4 mg SUBLINGUAL Q5M PRN #25 tab 04/11/18 [Rx Confirmed 06/18/18] Automatic Blood Pressure Machine #1 ea 04/12/18 [Rx Confirmed 06/18/18] carvedilol 6.25 mg tablet 6.25 mg PO BID #60 tab 04/12/18 [Rx Confirmed 06/18/18] clopidogrel 75 mg tablet 75 mg PO QDAY #30 tab 04/12/18 [Rx Confirmed 06/18/18] furosemide 40 mg tablet 40 mg PO QDAY #30 tab 04/12/18 [Rx Confirmed 06/18/18] losartan 50 mg tablet 50 mg PO QDAY #30 tab 04/12/18 [Rx Confirmed 06/18/18] Isosorbide Mononitrate [Imdur] 120 mg PO .COMPLEX 04/16/18 [History Confirmed 06/18/18] ropinirole 0.5 mg tablet 0.5 mg PO QHS #60 tab 06/18/18 [Rx Confirmed 06/18/18] PFSH Medical History Atherosclerosis of other coronary artery bypass graft(s) with other forms of angina pectoris (Chronic) Atherosclerosis of coronary artery of pechanga heart without angina pectoris (Acute) Obesity (Chronic) Hyperlipidemia (Chronic) Nicotine dependence in remission (Chronic) Hypertension (Chronic) Abnormal stress test (Resolved) Surgical History History of left heart catheterization (Chronic 04/17/18) Presence of aortocoronary bypass graft (Chronic 01/15/17) Family History Father Heart disease Mother CVA (cerebral vascular accident) Social History Smoking Status: Light Smoker (<10/day) second hand exposure: Yes alcohol intake: current alcohol intake frequency: a few times a week Alcohol type: beer substance use type: does not use caffeine: No what type of physical activity do you participate in: other details: cardiac rehab frequency: 3-4 times per week Review of Systems Const CONSTITUTIONAL: Negative anorexia, body ache, chills, daytime sleepiness, fever(s), night sweats, oral thrush, stops breathing during sleep, weight loss, sleeping in chair, fatigue, weight loss, weight gain, frequent colds, seasonal allergies, other, headache(s) or orthopnea EETM Ear Nose Throat Mouth: Positive hearing normal; negative hard of hearing, hoarseness, dry mouth in morning, change in vision, itchy eyes, eye pain, swallowing Difficulty, ear pain, nose bleed, headache(s), mouth pain, nasal congestion, nasal discharge, post nasal drip, sinus pain, sinus pressure, sore throat or other Cardio Cardiovascular: Negative chest pain, chest pain at rest, chest pain with activity, irregular heart rhythm, edema, shortness of breath when lying down, palpitations, murmur or other Resp Respiratory: Positive as per HPI, shortness of breath shortness of breath: Positive with activity and cough cough: Positive non-productive; negative pain with cough, wheezing, chest congestion, chest tightness, pain on inspiration, inhalers, increase use of rescue inhalers, snoring, apnea or other Gastro Gastrointestional: Negative bloody stools, change in appetite, difficulty swallowing, reflux, hematemesis, melena stool, loose stool, constipation or other Genitourinary: Negative blood in urine, nocturia, pain with urination or other Musc Musculoskeletal: Negative body pain, back pain, neck pain or other Skin/Breast Skin/Breast: Negative dry skin, itching, rash, unusual bruising, breast lump or other Neuro Neurological: Negative restless legs, confusion, weakness or other Psych Psychocological: Negative abnormal sleep pattern, anxiety, thoughts of hurting self/others, hopelessness or other Lymph Lymphatic: Negative easy bleeding, easy bruising, swollen lymph nodes or other Exam Const Constitutional: Positive conversant, cooperative, in no acute respiratory distress, well developed, well nourished, smells of smoke (and alcohol), poor hygiene, obese and appears older than stated age Head Head: Positive normocephalic and atraumatic; negative cyanosis of lips/distal nose Eyes Eye: Positive clear conjunctiva; negative nystagmus or scleral abnormality Ears Ear: Positive hearing normal and external ears normal; negative hard of hearing Nose Nose: Positive external nose normal and no nasal discharge; negative epistaxis Mouth Mouth: Positive oral mucosae normal, no lesions and crowded posterior oropharynx; negative post nasal drip, malodorous breath or oral thrush present Mallampati Score: III: Mallampati Score Neck Neck: Positive normal visual inspection, full ROM, trachea midline, thick neck and male neck greater than 43 cm (17 in); negative lymphadenopathy, JVD or tender Chest Wall Chest: Positive normal inspection of the chest and symmetric chest movement; negative increased A/P diameter Resp lung sounds: Positive clear to auscultation, good air exchange, normal expiratory time and normal respiratory effort; negative diminished, wheezes, rhonchi, rales, dullness to percussion or wheeze present on forced exhalation Cardio Cardiac: Positive regular rate, regular rhythm, S1 normal and S2 normal; negative murmur GI GI: Positive normal to inspection, normal bowel sounds and obese; negative distended Genitourinary: Positive deferred Musc Musculoskeletal: Positive steady gait and ROM normal; negative kyphosis or scoliosis Skin Pulmonary Skin Exam: Positive intact; negative rash, lesion, ulcers or erythema Pulses Pulse: Yes pulses normal x4 extremities Extremities Extremities: No edema, Yes capillary refill normal, No clubbing, No cyanosis, No stasis dermatitis Neuro Neurologic: Yes conversant, Yes no focal neuro deficits, Yes normal concentration, Yes understands questions, Yes cooperative, Yes normal cognition, Yes normal coordination Lymph Lymphatic: No lymphadenopathy, No tenderness, No cervical adenopathy, No axillary adenopathy Psych Appearance: Positive grossly normal, eye contact and well kempt Mental Status: Positive mental status grossly normal Mood: Positive labile mood Affect: Positive anxious affect Coding Level of Care Code Off vis,est,level 3 Diagnoses DAVID (obstructive sleep apnea) G47.33 PEREZ (dyspnea on exertion) R06.09 Class 2 severe obesity due to excess calories with serious comorbidity and body mass index (BMI) of 36.0 to 36.9 in adult E66.01 Obesity type: due to excess calories Obesity classification: adult class 2 (BMI 35 - 39.9) Serious obesity comorbidity presence: with serious comorbidity Body mass index: BMI 36.0-36.9 Cigarette nicotine dependence in remission F17.211 Nicotine product type: cigarettes 06/20/18 1000 <Electronically signed by Nahomy DAVILA> Date Nahomy DAVILA Cosigner Signature: Date (if applicable) CC: Joel Davis CARDIOLOGY VISIT Observed: 05/18/2018 Status: F Source: [place] REPORT 2:17 PM [facility] [place] REPOSITORY [facility] [address] [place] [address] OFFICE VISIT Date of Service: 04/12/18 MR#: [id number] Acct: [id number] Name: SAVAGE ANDERS II Rep #: [id number] : 1960 Provider: Lj Francisco MD Age/Sex: 57/M Location: [facility] [place] Status: Signed HPI HPI Details: SAVAGE ANDERS, is a 57 M who presents to the office today for Intake Vital Signs04/12/18 Height 5 ft 9 in Intake Visit Reasons: wants to discuss disability Allergies No Known Allergies Allergy (Verified 04/25/18 08:10) Medications Aspirin 81 mg PO DAILY@0800 10/27/16 [History Confirmed 04/25/18] Ergocalciferol [Vitamin D] 50,000 unit PO PEREZ 07/25/17 [History Confirmed 04/25/18] atorvastatin 80 mg tablet 80 mg PO QHS #30 tab 12/03/17 [Rx Confirmed 04/25/18] isosorbide mononitrate ER 60 mg tablet,extended release 24 hr 60 mg PO QAM #90 tab 03/15/18 [Rx Confirmed 04/25/18] nitroglycerin 0.4 mg sublingual tablet 0.4 mg SUBLINGUAL Q5M PRN #25 tab 04/11/18 [Rx Confirmed 04/25/18] Automatic Blood Pressure Machine #1 ea 04/12/18 [Rx Confirmed 04/25/18] carvedilol 6.25 mg tablet 6.25 mg PO BID #60 tab 04/12/18 [Rx Confirmed 04/25/18] clopidogrel 75 mg tablet 75 mg PO QDAY #30 tab 04/12/18 [Rx Confirmed 04/25/18] furosemide 40 mg tablet 40 mg PO QDAY #30 tab 04/12/18 [Rx Confirmed 04/25/18] losartan 50 mg tablet 50 mg PO QDAY #30 tab 04/12/18 [Rx Confirmed 04/25/18] Isosorbide Mononitrate [Imdur] 120 mg PO .COMPLEX 04/16/18 [History Confirmed 04/25/18] [facility] Medical History Atherosclerosis of other coronary artery bypass graft(s) with other forms of angina pectoris (Chronic) Atherosclerosis of coronary artery of pechanga heart without angina pectoris (Acute) Obesity (Chronic) Hyperlipidemia (Chronic) Nicotine dependence in remission (Chronic) Hypertension (Chronic) Abnormal stress test (Resolved) Surgical History History of left heart catheterization (Chronic 07/26/17) Presence of aortocoronary bypass graft (Chronic 01/15/17) Family History Father Heart disease Mother CVA (cerebral vascular accident) Social History Smoking Status: Light Smoker (<10/day) second hand exposure: Yes alcohol intake: current alcohol intake frequency: a few times a week Alcohol type: beer substance use type: does not use caffeine: No what type of physical activity do you participate in: other details: cardiac rehab frequency: 3-4 times per week ROS Const Const: Positive for fatigue and weakness; negative for difficulty sleeping, frequent falls, headache(s) or excessive sweating Eyes Eyes: Negative for loss of peripheral vision, transient loss of vision, blurry vision or double vision ENT ENT: Negative for headache(s), dizziness, Nosebleed/epistaxis or balance problems Cardio Chest Pain: No Edema: Bilateral (Trace BLE) Muscle aches with walking: None Resp Respiratory: Positive for SOB with activity (SOB with little activity) and SOB at rest; negative for SOB orthopnea\SOB lying down or paroxysmal nocturnal dyspnea GI GI: Negative nausea or heartburn : Negative for hematuria Musc Musc: Negative for muscle aches/ myalgia, muscle weakness, joint pain or balance problems Skin Skin: Negative non-healing lesions, unusual bruising or rash Neuro Neuro: Positive for weakness; negative for frequent falls, blurry vision, headache(s), dizziness, lightheadedness, orthostatic symptoms or double vision Johnathon Hematologic/Lymphatic: Negative for easy bruising Endo Endo: Positive for fatigue; negative for excessive sweating or increased thirst/drinking Psych Psych: Negative for anxiety or depression Allergy Allergy/Immunology: Negative for hives, Negative for rash Assessment AND Plan Orders Orders: Left AND Right Heart Cath w Myxucz11/18/18 I25.10, I25.798, R06.09, Z95.1, Lj Francisco MD Z98.890 Medications New: [Automatic Blood Pressure Emilie directed I10, I25.798, I50.9, R06.09, Lj Francisco MD mikel] Z95.1 Discontinued: metoprolol succinate ER Discontinued Reason: Order Dojwhc52 mg PO QDAY Katia isaacs Plan Detail Follow Up +6M (Nolan) Coding Level of Care Code Off vis,est,level 3 Coding Level of Care Code Off vis,est,level 3 05/18/18 1417 <Electronically signed by Lj Francisco MD> Date Lj Francisco MD Cosigner Signature: Date (if applicable) CC: ECHOCARDIOGRAM COMPLETE Observed: 04/25/2018 Status: F Source: [place] 5:11 PM [facility] [place] REPOSITORY [facility] Cardiovascular Services [address] [place] [id number] Echo Complete W/ Contrast 04/25/18 1406 MR#: [id number] Acct: [id number] Name: SAVAGE ANDERS II Rep #: [id number] : 1960 57 From: Lj Francisco MD Attending Dr: Lj Francisco MD Status: REG CLI Ordering Dr: Lj Francisco MD Date: 04/25/18 Location: [facility] Sex: M C Admitted: Reason For Study: S/P CABG Procedure This was a 2D Doppler, Color Flow transthoracic echocardiogram. Contrast injection was performed. Exam performed in department. Left Ventricle Normal size and thickness. The estimated ejection fraction is 65 %. Stage 2 diastolic dysfunction. No regional wall motion abnormalities noted. Right Ventricle Mildly dilated right ventricle. Normal systolic function. Atria Normal left atrium. Normal right atrium. Normal atrial septum. Mitral Valve The mitral valve is structurally normal. No prolapse or stenosis seen. Tricuspid Valve Normal tricuspid valve. Trivial tricuspid valve insufficiency. Right ventricular systolic pressure estimated to be 28 mmHg. Aortic Valve Trisinus/trileaflet aortic valve. Pulmonic Valve Normal pulmonic valve. Great Vessels Normal aortic root. Normal arch. Normal inferior vena cava. Inferior vena cava collapse with sniff. Pericardium/Pleural No pericardial effusion. Medication 22 gauge I.V. with prn adaptor inserted into right arm. Diluted definity 4ml given slow IV push to enhance endocardial definition. MMode/2D Measurements AND Calculations LVIDd: 3.9 cm IVSd: 0.99 cm Ao root diam: 3.5 cm LVIDs: 2.6 cm LVPWd: 0.82 cm LA dimension: 4.0 cm RVDd: 4.1 cm FS: 32.2 % LAV(MOD-bp): 49.5 ml EDV(MOD-sp4): 100.7 ml EDV(MOD-sp2): 72.3 ml LAV(MOD-bp) Indexed: 21.6 ml/m2 ESV(MOD-sp4): 28.8 ml EF(MOD-sp2): 55.9 % LAV(MOD-sp2): 52.6 ml EF(MOD-sp4): 71.4 % LAV(MOD-sp4): 45.6 ml SV(MOD-sp4): 71.9 ml SV(MOD-sp2): 40.4 ml LA A4 area: 16.9 cm2 RA A4 area: 14.0 cm2 Doppler Measurements AND Calculations MV E max dayanna: 104.0 cm/sec Lat Peak E' Dayanna: 12.1 cm/sec Med Peak E' Dayanna: 7.8 cm/sec MV A max dayanna: 72.6 cm/sec E/E' lat: 8.6 E/E' med: 13.3 MV E/A: 1.4 Ao V2 max: 126.7 cm/sec LV V1 max: 105.0 cm/sec PA V2 max: 103.4 cm/sec Ao max P.4 mmHg LV V1 max P.4 mmHg PI end-d dayanna: 122.6 cm/sec TR max dayanna: 240.6 cm/sec TR max P.2 mmHg Interpretation Summary The estimated ejection fraction is 65 %. Stage 2 diastolic dysfunction. Mildly dilated right ventricle. Trivial tricuspid valve insufficiency. Right ventricular systolic pressure estimated to be 28 mmHg. Compared to echo rport dated 01/11/2017, LV function and wall motion abnormalities have normalized. Ordering Physician: Lj Francisco Referring Physician: JOEL DAVIS [facility] Performed By: Trinity Landin, [place], RVT 04/25/18 1710 Date Lj Francisco MD CC: Lj Francisco MD; Joel Weirtyrel Date Dictated: 04/25/18 1406 Date Transcribed: 04/25/18 1710 Honey Extractor: Signed BLOOD GASES BY CPS Collected: 04/17/2018 Status: F Source: [place] 10:58 AM [facility] [place] REPOSITORY TYPE CODE TESTS RESULT OUT OF RANGE REFERENCE UNITS LAB L9000.9990 Normal BLD GAS ART TYPE LAB L9001.1110 7.35-7.45 Normal pH - 7.45 I-STAT LAB L9001.1210 35-45 mmHg Low pCO2 - 32.9 ISTAT LAB L9001.1310 75-100 mmHG Low PO2 68 I-STAT LAB L9001.2300 22-26 mmol/L Normal HCO3 23.0 ISTAT LAB L9001.2400 -2 to +2 mmol/L Normal BE ISTAT -1 LAB L9001.2415 mmol/L Normal TOTAL CO2 24 ISTAT LAB L9001.2425 95-99 % Low SO2 ISTAT 94 Performed By: #### L9000.0800 #### [facility] [address] [place], [place] [id number] VENOUS BLOOD GAS Collected: 04/17/2018 Status: F Source: [place] 10:52 AM [facility] [place] REPOSITORY TYPE CODE TESTS RESULT OUT OF RANGE REFERENCE UNITS LAB L9000.9990 Normal BLD GAS LONA TYPE LAB L9002.1110 7.32-7.42 Normal VBGpH - 7.41 I-STAT LAB L9002.1212 41-51 mmHg Low VBG pCO2 36.3 - ISTA LAB L9002.1310 25-40 mmHg Normal VBG PO2 36 I-STAT LAB L9002.2300 22-26 mmol/L Normal VBG HCO3 23 ISTAT LAB L9002.2400 -1.0-3.5 mmol/L Low VBG BE -2 ISTAT LAB L9002.2410 50-70 % Normal VBG SO2 70 ISTAT LAB L9002.2415 23-33 mmol/L Normal VBG O2 CT 24 ISTAT Performed By: #### L9000.0810 #### [facility] Point of Care [address] [facility] [place] [address] VENOUS BLOOD GAS Collected: 04/17/2018 Status: F Source: [place] 10:49 AM [facility] [place] REPOSITORY TYPE CODE TESTS RESULT OUT OF RANGE REFERENCE UNITS LAB L9000.9990 Normal BLD GAS LONA TYPE LAB L9002.1110 7.32-7.42 Normal VBGpH - 7.40 I-STAT LAB L9002.1212 41-51 mmHg Low VBG pCO2 36.9 - ISTA LAB L9002.1310 25-40 mmHg Normal VBG PO2 34 I-STAT LAB L9002.2300 22-26 mmol/L Normal VBG HCO3 23 ISTAT LAB L9002.2400 -1.0-3.5 mmol/L Low VBG BE -2 ISTAT LAB L9002.2410 50-70 % Normal VBG SO2 65 ISTAT LAB L9002.2415 23-33 mmol/L Normal VBG O2 CT 24 ISTAT Performed By: #### L9000.0810 #### [facility] Point of Care [address] [place] [address] CBC W/DIFF, AUTOMATED Collected: 04/17/2018 Status: F Source: [place] 7:49 AM [facility] [place] REPOSITORY TYPE CODE TESTS RESULT OUT OF RANGE REFERENCE UNITS LAB L100.1000 4.4-11.0 K/mm3 Normal WBC 6.5 LAB L100.1200 4.6-6.2 M/mm3 Normal RBC 4.69 LAB L100.1300 13.0-16.5 g/dl Normal HGB 15.9 LAB L100.1400 40-54 % Normal HCT 45.4 LAB L100.1500 80-94 fL High MCV 96.8 LAB L100.1600 27.0-32.0 pg High MCH 33.9 LAB L100.1700 32-36 g/gl Normal MCHC 35.0 LAB L100.1810 11.6-14.6 % Normal RDW CV 13.6 LAB L100.1820 35.1-43.9 fl High RDW SD 47.5 LAB L100.1900 150-450 K/mm3 Normal PLT 183 LAB L100.2000 6.2-12.0 fl Normal MPV 9.3 LAB L100.2100 47-70 % High NEUT% 73.5 LAB L100.2200 19-41 % Low LY% 13.3 LAB L100.2300 0-10 % High MONO% 11.3 LAB L100.2400 0-5 % Normal EO% 1.1 LAB L100.2500 0-1 % Normal BASO% 0.6 LAB L100.2550 0.0-0.9 % Normal IM GRAN % 0.200 Result Comment: IG% - Immature Granulocytes (promyelocytes, myelocytes and metamyelocytes) > 1% indicates that a LEFT SHIFT is Present. LAB L100.2620 2.0-7.7 X10 3/uL Normal Absolute Neut 4.8 LAB L100.2720 0.83-4.51 X10 3/ul Normal Absolute Lymph 0.86 Performed By: #### L100.0100 #### [facility] [address] [facility] [place], [address] PROTHROMBIN TIME W/INR Collected: 04/12/2018 Status: F Source: [place] 12:24 PM [facility] [place] REPOSITORY TYPE CODE TESTS RESULT OUT OF RANGE REFERENCE UNITS LAB L300.4150 11.7-14.9 SECONDS Normal PROTIME 13.4 LAB L300.4200 Normal INR 1.0 Performed By: #### L300.3900, L500.2500, L500.3400, L500.4100 #### [facility] [address] [facility] [place], [address] BASIC METABOLIC Collected: 04/12/2018 Status: F Source: [place] PROFILE (BMP) 12:24 PM [facility] [place] REPOSITORY TYPE CODE TESTS RESULT OUT OF RANGE REFERENCE UNITS LAB L501.0100 74-106 mg/dL Normal GLU 97 Result Comment: Please note revised GLUCOSE reference range effective 2017. LAB L501.1000 7-18 mg/dL Normal BUN 8 LAB L501.1100 0.70-1.30 mg/dL Normal CREAT,SERUM 0.88 Result Comment: The validity of the calculated GFR AND GFRAA in patients over 70 years has not been determined. Clinical correlation is essential. LAB L501.1110 >60 mL/min Normal EST GFR 95 Result Comment: Non- GFR Calc LAB L501.1115 >60 mL/min Normal EST GFR - AA 115 Result Comment: GFR Calc LAB L501.1300 10-20 RATIO Low BUN/CRE 9.0 LAB L501.2200 8.5-10.1 mg/dL Normal CA 8.6 LAB L501.5300 136-145 mmol/L Low NA 135 LAB L501.5600 3.5-5.1 mmol/L Normal K 4.2 LAB L501.5900 98-107 mmol/L Normal CL 103 LAB L501.6100 21.0-32.0 mmol/L Normal CO2 24.0 LAB L501.6200 5-15 Normal GAP 8 Performed By: #### L300.3900, L500.2500, L500.3400, L500.4100 #### [facility] [address] [place], [address] LIVER PROFILE Collected: 04/12/2018 Status: F Source: [place] 12:24 PM [facility] [place] REPOSITORY TYPE CODE TESTS RESULT OUT OF RANGE REFERENCE UNITS LAB L501.1500 6.4-8.2 g/dL Normal T PROT 7.5 LAB L501.1800 3.2-5.0 g/dL Normal ALB 4.1 LAB L501.1950 2.2-4.2 g/dL Normal GLOB 3.4 LAB L501.4100 15-37 U/L High AST 61 LAB L501.4305 45-117 U/L Normal ALK P 47 LAB L501.4405 16-61 U/L High ALT 74 LAB L501.4600 0.20-1.00 mg/dL Normal T BILI 0.50 LAB L501.4700 0.00-0.30 mg/dL Normal D BILI 0.08 Performed By: #### L300.3900, L500.2500, L500.3400, L500.4100 #### [facility] [address] [place], [address] LIPID PROFILE Collected: 04/12/2018 Status: F Source: [place] 12:24 PM [facility] [place] REPOSITORY TYPE CODE TESTS RESULT OUT OF RANGE REFERENCE UNITS LAB L501.4900 200 mg/dL Normal CHOL 164 Result Comment: <200 mg/dL Desirable 200-240 mg/dL Borderline >240 mg/dL High Risk LAB L501.5000 mg/dL Normal TRIG 91 Result Comment: The drugs N-Acetylcysteine and Metamizole may falsely depress this assay. Serum Triglycerides Reference Interval Normal <150 mg/dL Borderline high 150 - 199 mg/dL High 200 - 499 mg/dL Very High > or = 500 mg/dL LAB L501.6400 mg/dL Normal HDL 51 Result Comment: The drugs N-Acetylcysteine and Metamizole may falsely depress this assay. Reference Range HDL <40 mg/dL Low HDL Cholesterol HDL >or= 60 mg/dL High HDL Cholesterol LAB L501.6500 0-130 mg/dL Normal LDL 95 LAB L501.6600 5-40 mg/dL Normal VLDL 18 Performed By: #### L300.3900, L500.2500, L500.3400, L500.4100 #### [facility] [address] [facility] [place], [address] CHEST PA AND LATERAL Observed: 04/12/2018 Status: F Source: [place] 12:13 PM [facility] REPOSITORY [facility] Imaging Services [address] [place] [address] Chest PA and Lateral MR#: [id number] Acct: [id number] Name: SAVAGE ANDERS II Rep #: [id number] : 1960 M 57 From: Natalio Kapoor MD PCP: Joel Davis Status: [facility] Study: Chest PA and Lateral Date of Exam: 04/12/18 Exam# [id number] Ordering Dr: Lj Francisco MD STUDY: X-RAY CHEST REASON FOR EXAM: Male, 57 years old. Chest pain TECHNIQUE: Frontal and lateral views of the chest COMPARISON: 01/10/2017 FINDINGS: The lungs are clear. There are no pleural effusions. There is no pneumothorax. The heart is normal in size. The patient is status post sternotomy. There are degenerative changes noted in the spine. RAD/Chest PA and Lateral IMPRESSION: No acute thoracic pathology. Electronically Signed: Natalio Kapoor, at 16:52 EDT Tel , Service support , CC: Lj Francisco MD; Joel Davis Honey Extractor: Signed CARDIOLOGY VISIT Observed: 04/12/2018 Status: F Source: [place] REPORT 11:46 AM [facility] [place] REPOSITORY [facility] [address] [place] [address] OFFICE VISIT Date of Service: 04/12/18 MR#: [id number] Acct: [id number] Name: SAVAGE ANDERS II Rep #: [id number] : 1960 Provider: Lj Francisco MD Age/Sex: 57/M Location: [facility] [place] Status: Signed HPI HPI Chief Complaint: Routine f/u Details: Mr. Anders Is a Very Pleasant 57-year-old Nondiabetic Gentleman with a History of Hypertension, Hypercholesterolemia, Positive Smoking History for the past 40 Years of Approximately One Pack of Cigarettes per Day. Patient Was Recently Admitted to [facility] in December [address] Espana. At That Time He Was Admitted with Chest Pain Underwent a Catheterization and Was Found to Have Significant Three-Vessel Coronary Disease. He Was transferred [facility] Where He Underwent Successful 3 Vessel Bypass Surgery by Dr. Duarte at That Time. He Received a HAMILTON to the LAD, Saphenous Vein Graft to the Obtuse Marginal #1, and a Saphenous Vein Graft to the RCA. His Symptoms of Chest Burning with Exertion Completely Resolved and He Attended Cardiac Rehab without Difficulty. During Rehab Sessions He Has Significant Hypertension. Unfortunately despite This He Has Continued to Smoke but Is Now down to around 5 Cigarettes per Day. patient Was Recently Admitted to [facility] on 07/26/17 with Substernal Chest Pressure Radiating up into His Left Upper Chest While at Rest. He Sought Medical Attention His EKG Showed No Acute Changes. His Troponins Were Negative 4, and Underwent a Non-Walking Nuclear Stress Test Which Was Indeterminate for ischemia. He Underwent a Repeat Left Her Catheterization with Graft Angiography by Me Which Demonstrated Significant Three-Vessel Coronary Disease, a Patent HAMILTON to the LAD, Patent Saphenous Vein Graft to the OM #1, an Occluded Saphenous Vein Graft to the PDA. His [place]aver Coronary Had a 70% Proximal Stenosis Followed by 100% Distal Occlusion. He Had Adequate Lohx-Bh-Cnhgu Collaterals.Patient Was Treated Medically. He Is Now Here in Follow-Up. Since our Last Visit, the Patient Continues to Smoke about 5 Cigarettes per Day. He Failed Chantix in the past. In addition, the patient continues to complain of dyspnea on exertion, shortness of breath, which is getting worse not better over the last several months. Patient is applying for disability, and cannot work given his shortness of breath. In addition he underwent pulmonary function test by Dr. Jha on 02/07/18 which were essentially normal with the diffusion capacity at lower limits of normal. In addition he underwent a sleep study which was positive for sleep apnea and is currently on BiPAP and compliant with that. Despite these efforts his shortness of breath has worsened. I re-looked at his catheterization film from 07/26/17 today, which demonstrated an occluded saphenous vein graft to the right, and occluded mid right coronary artery with perfusion into a large right ventricular branch with collaterals from right to left with 2 distinct lesions in it proximal and mid, distal left main disease with widely patent HAMILTON to the LAD with a large non-ligated branch which may be contributing to coronary steal, as well as a patent saphenous vein graft to the circumflex. In Our Office Today His Blood pressure Is 168/84, and Pulse Is 90 and Regular. His blood pressures recorded recently are 177/105 his Physical Exam Is As below. Patient has 1+ bilateral lower extremity edema. His Lipids As of 07/26/17 Showed LDL of 97 and HDL Normal Sinus Rhythm, Normal [place], No Evidence of Acute Changes. Intake Vital Signs04/12/18 Height 5 ft 9 in Intake Visit Reasons: wants to discuss disability Allergies No Known Allergies Allergy (Verified 04/12/18 11:06) Medications Aspirin 81 mg PO DAILY@0800 10/27/16 [History Confirmed 04/12/18] Ergocalciferol [Vitamin D] 50,000 unit PO PEREZ 07/25/17 [History Confirmed 04/12/18] atorvastatin 80 mg tablet 80 mg PO QHS #30 tab 12/03/17 [Rx Confirmed 04/12/18] isosorbide mononitrate ER 120 mg tablet,extended release 24 hr 120 mg PO .COMPLEX #90 tab 03/15/18 [Rx Confirmed 04/12/18] isosorbide mononitrate ER 60 mg tablet,extended release 24 hr 60 mg PO QAM #90 tab 03/15/18 [Rx Confirmed 04/12/18] nitroglycerin 0.4 mg sublingual tablet 0.4 mg SUBLINGUAL Q5M PRN #25 tab 04/11/18 [Rx Confirmed 04/12/18] Automatic Blood Pressure Machine #1 ea 04/12/18 [Rx Confirmed 04/12/18] carvedilol 6.25 mg tablet 6.25 mg PO BID #60 tab 04/12/18 [Rx Confirmed 04/12/18] clopidogrel 75 mg tablet 75 mg PO QDAY #30 tab 04/12/18 [Rx Confirmed 04/12/18] furosemide 40 mg tablet 40 mg PO QDAY #30 tab 04/12/18 [Rx Confirmed 04/12/18] losartan 50 mg tablet 50 mg PO QDAY #30 tab 04/12/18 [Rx Confirmed 04/12/18] [facility] Medical History Atherosclerosis of other coronary artery bypass graft(s) with other forms of angina pectoris (Chronic) Atherosclerosis of coronary artery of pechanga heart without angina pectoris (Acute) Obesity (Chronic) Hyperlipidemia (Chronic) Nicotine dependence in remission (Chronic) Hypertension (Chronic) Abnormal stress test (Resolved) Surgical History History of left heart catheterization (Chronic 07/26/17) Presence of aortocoronary bypass graft (Chronic 01/15/17) Family History Father Heart disease Mother CVA (cerebral vascular accident) Social History Smoking Status: Light Smoker (<10/day) second hand exposure: Yes alcohol intake: current alcohol intake frequency: a few times a week Alcohol type: beer substance use type: does not use caffeine: No what type of physical activity do you participate in: other details: cardiac rehab frequency: 3-4 times per week Cardiology Exam Const Appearance: cooperative, healthy appearing and no acute distress Nutritional Appearance: well nourished Orientation: alert, oriented x3 and oriented to person Head Head: normal to inspection, atraumatic and normocephalic Nose: external nose normal Face and Sinus: face symmetric Mouth: oral mucosae normal Eyes General: appearance normal, both eyes and all related structures Eyelids: eyelids normal Conjunctivae: conjunctivae normal Pupils: PERRL and normal by confrontation EOM: EOM intact bilaterally Neck Neck: normal visual inspection and full ROM Carotids: normal carotid upstroke Chest Chest inspection: normal inspection of the chest Auscultation: Bilateral: Clear to Auscultation Cardio Palpation: normal PMI Rate: regular rate Rhythm: regular rhythm Heart sounds: S1 normal and S2 normal GI GI: normal to inspection, no hepatosplenomegaly and bowel sounds present Neuro General: alert, oriented x3, awake, CN's II-XI intact bilaterally and moves all extremities Skin Skin: no rashes or lesions noted Extremities Pulses: Normal: Right Femoral Pulse, Left Femoral Pulse, Right Dorsalis Pedis Pulse, Left Dorsalis Pedis Pulse, Right Posterior Tibial Pulse, Left Posterior Tibial Pulse, Right Radial Pulse, Left Radial Pulse Lower Extremity Edema: +1: Bilateral Psych Psychological: normal affect Assessment AND Plan 1. Atherosclerosis of coronary artery of pechanga heart without angina pectoris I25.10 CABG x 3 HAMILTON-LAD, SVG-OM1 and SVG-Distal RCA 01/15/2017 Heart Cath HAMILTON graft-LAD patent, SVG-OM1 patent, SVG-distal RCA occluded 07/26/2017 Plan 1. Coronary artery disease: The patient has evidence of severe coronary artery disease with left main disease, occluded right disease with patently into the LAD with a possible large non-ligated branch that may be contributing to coronary steal, a patent saphenous vein graft to the left circumflex system, and occluded saphenous vein graft to the RCA. The pechanga RCA terminates in the middle portion but gives rise to a large RV branch which provides right to left collaterals. The pechanga RCA has 2 distinct lesions in it which may benefit from intervention to assist with RV perfusion and pulmonary contractility. In addition I recommend a right heart catheterization to document pulmonary pressures rather than relying on echocardiogram for evaluation. I recommended the patient have a repeat heart catheterization and graft angiography to determine if he has lost any other grafts postoperatively. If his grafts are patent, would recommend PCI of his pechanga RCA in an attempt to provide more blood flow to the right ventricle and therefore more contractility to the pulmonary system. In addition I recommend aggressive antihypertensive control with discontinuation of his hydrochlorothiazide switching him to Lasix 40 mg a day, discontinuing his lisinopril and switching to losartan 50 a day, and switching his metoprolol to Coreg 6.25 mg p.o. twice daily. In addition we will start him on Plavix in anticipation of PCI of his pechanga RCA. Orders Orders: 2. Dyspnea on exertion R06.09 Plan 2. Dyspnea on exertion: The patient continues to smoke cigarettes approximately 5 per day, and apparently his pulmonary function tests or within normal limits except for mild reduction in DLCO. In addition he was diagnosed with DAVID and apparently is compliant with his BiPAP. I recommended once again that he discontinue all tobacco products going forward to assist with his pulmonary health. Orders Orders: Medications New: 3. Hyperlipidemia E78.5 Plan 3. Hyperlipidemia: Repeat lipids are pending. Continue Lipitor. 4. Return to office in 6 months. This note was generated using a voice recognition system and there may be incorrect words, spelling or punctuation that were not noted when reviewing the office note prior to saving. She is she does Orders Orders: Plan Detail Other Orders Orders: Other Medications New: [Automatic Blood Pressure MachiAs directed I10, I25.798, I50.9, Z95.1 Lj Francisco MD ne] Discontinued: metoprolol succinate ER Discontinued Reason: Order Edhmfg35 mg PO QDAY Katia isaacs Follow Up +6M (Nolan) Coding Level of Care Code Off vis,est,level 3 Diagnoses Atherosclerosis of coronary artery of pechanga heart without angina pectoris I25.10 Dyspnea on exertion R06.09 Hyperlipidemia E78.5 Coding Level of Care Code Off vis,est,level 3 Diagnoses Atherosclerosis of coronary artery of pechanga heart without angina pectoris I25.10 Dyspnea on exertion R06.09 Hyperlipidemia E78.5 04/12/18 1146 <Electronically signed by Lj Francisco MD> Date Lj Francisco MD Cosigner Signature: Date (if applicable) CC: 12 LEAD EKG PERFORMED Observed: 04/12/2018 Status: F Source: [place] [facility] [place] 11:40 AM [facility] REPOSITORY [facility] [address] [place] [address] 12 Lead EKG performed by [facility] 04/12/18 1138 MR#: [id number] Acct: [id number] Name: SAVAGE ANDERS II Rep #: [id number] : 1960 57 From: Lj Francisco MD Attending Dr: Lj Francisco MD Status: DEP AMB Ordering Dr: Lj Francisco MD Date: 04/12/18 Location: [facility] [place] Sex: M C Admitted: [facility] [place]/12 Lead EKG performed by [facility] ECG Report Interpretation 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 ABNORMAL Electronically signed on 11/08/2018 at 15:55 by Lj Francisco 11/08/18 1601 Date Lj Francisco MD CC: Joel Davis Date Dictated: 04/12/181137 Date Transcribed: 04/12/18 113 Honey Extractor: Signed OFFICE VISIT REPORT Observed: 03/01/2018 Status: F Source: [place] 4:51 PM [facility] [address] [place] [address] OFFICE VISIT Date of Service: 03/01/18 MR#: [id number] Acct: [id number] Patient: SAVAGE ANDERS II Rep #: [id number] : 1960 Provider: Lj Francisco MD Age/Sex: 57/M Location: [facility] [place] Status: Signed Intake Intake Visit Reasons: 1 wk BP Chief Complaint: cough Allergies No Known Allergies Allergy (Verified 02/26/18 07:42) Medications Aspirin 81 mg PO DAILY@0800 10/27/16 [History Confirmed 02/26/18] Hydrochlorothiazide 12.5 mg PO DAILY 10/27/16 [History Confirmed 02/26/18] Nitroglycerin [Nitrostat] 0.4 mg SUBLINGUAL Q5M PRN 10/27/16 [History Confirmed 02/26/18] Ergocalciferol [Vitamin D] 50,000 unit PO PEREZ 07/25/17 [History Confirmed 02/26/18] atorvastatin 80 mg tablet 80 mg PO QHS #30 tab 12/03/17 [Rx Confirmed 02/26/18] lisinopril 20 mg tablet 20 mg PO QDAY #30 tab 02/07/18 [Rx Confirmed 02/26/18] metoprolol succinate ER 50 mg tablet,extended release 24 hr 50 mg PO QDAY #30 tab 02/07/18 [Rx Confirmed 02/26/18] isosorbide mononitrate ER 120 mg tablet,extended release 24 hr 120 mg PO .COMPLEX 02/22/18 [History Confirmed 02/26/18] Nursing Note Pt is here today for a bp check d/t Chucky Khan EMERGENCY ROOM CLERK instructing pt to increase Isosorbide to 60 mg po daily for chest discomfort. Pt states he is no longer having any chest discomfort, however he is still SOB. Pt denies dizziness, no lower extremity edema present. Our cuff: 138/86, HR 72, RR 18 Pt cuff: 179/106 Pt was advised to purchase new cuff. Merry Johnson reviewed vitals and pt is to continue current medication therapy. Pt states he is no longer taking Protonix, medication list has been updated. 03/01/18 6951 <Electronically signed by Merry QUARLES> Date Merry QUARLES Cosigner Signature: Date (if applicable) CC: Amy John PULMONARY VISIT REPORT Observed: 02/26/2018 Status: F Source: [place] 12:19 PM [facility] REPOSITORY [facility] [address] [place] [address] OFFICE VISIT Date of Service: 02/26/18 MR#: [id number] Acct: [id number] Name: SAVAGE ANDERS II Rep #: [id number] : 1960 Provider: Nahomy Pino Age/Sex: 57/M Location: [facility] Status: Signed Assessment AND Plan 1. DAVID (obstructive sleep apnea) G47.33 Status Chronic Plan Will begin treatment tonight. Initial goal will be that he wears a device 4 hours every night. Ultimate goal is that he wears a device any time spent sleeping, including naps. He has been encouraged to contact the office if he has any difficulty acclimating to the pressure support therapy. Otherwise, follow-up with Dr. Jha in 2 months. 2. PEREZ (dyspnea on exertion) R06.09 Status Chronic Plan Stable. Has not worsened. No additional testing at this time. Follow-up with Dr. Jha in 2 months. Anticipate that with compliance regarding his pressure support therapy the shortness of breath on exertion will improve. 3. Class 2 severe obesity due to excess calories with serious comorbidity and body mass index (BMI) of 36.0 to 36.9 in adult E66.01; Z68.36 Status Chronic Plan The patient admits that he would like to lose weight. We discussed the correlation between obstructive sleep apnea and obesity. He has been encouraged to begin a light exercise program. Continue to encourage weight loss, follow-up with Dr. Jha in 2 months. 4. Cigarette nicotine dependence in remission F17.211 Status Chronic Plan Deteriorated. He has resumed smoking. Discussed the pathophysiology of nicotine addiction. Discussed the possibility of using nicotine replacement. The patient reports that he plans to quit cold turkey once his current cigarettes have been used up. He also plans to utilize hard candy and gum in times when he anticipates a trigger for cigarette. Continue to encourage smoking cessation, follow-up with Dr. Jha in 2 months. Plan Detail Follow Up 2 Months (DMB) HPI 2 M FU: Chief Complaint: cough HPI Comments Details: This is a 57 year old M, currently under the care of Joel Davis, here today to review test results. He has not been seen in the ED urgent care for any respiratory illnesses since his last office visit. He has not required prescription antibiotics or prednisone for any breathing problems. He is not currently on any inhalers. I personally reviewed the tests/images/tracings which showed: Complete Pulmonary Function test were preformed on February 07, 2018, and showed FVC of 82 % of predicted, FEV1 of 79 % of predicted, FEV1/FVC ratio of 74 %, TLC of 91 % of predicted, RV of 87 % of predicted, DLCO 72% of predicted. The test was interpreted to be consistent essentially within normal limits. Pulmonary stress test was completed on February 06, 2018, and did not show a desaturation during ambulation, which confirmed no current need for supplemental oxygen. He was able to ambulate 956 feet over the course of 6 minutes. Titration study was completed on February 12, 2018 suggests BiPAP 14/10 cm of water. He was set up with his BiPAP yesterday. Unfortunately, he had some unforeseen events in his home last night and was unable to begin therapy last night. He does admit that tonight he begins to initiate treatment. Currently, he reports shortness of breath on exertion only. Denies any shortness of breath at rest or during conversation. Denies any chest pain or palpitations. Denies any wheezing or chest tightness, does report a frequent nonproductive cough. Denies any sputum production or hemoptysis. Denies any fever, chills or body aches. Has not currently tried any blip-ejo-[id number] medications for his cough or shortness of breath on exertion. Continues to smoke 5 cigarettes per day. Reports that he has tried Chantix in the past without success. He has tried cold turkey and failed. He is interested in smoking cessation, quite possibly in the use of nicotine gum. Intake Vital Signs02/26/18 Body Mass Index (BMI) 37.5 02/26/18 Blood Pressure 177/105 02/26/18 Height 5 ft 9 in 02/26/18 Weight: 250 lb Intake Visit Reasons: 2 M FU [facility] [place] [place] Vendor: [employer] Accompanied by: Self Allergies No Known Allergies Allergy (Verified 02/26/18 07:42) Medications Aspirin 81 mg PO DAILY@0800 10/27/16 [History Confirmed 02/26/18] Hydrochlorothiazide 12.5 mg PO DAILY 10/27/16 [History Confirmed 02/26/18] Nitroglycerin [Nitrostat] 0.4 mg SUBLINGUAL Q5M PRN 10/27/16 [History Confirmed 02/26/18] Pantoprazole Sodium [Protonix] 40 mg PO DAILY 03/21/17 [History Confirmed 02/26/18] Ergocalciferol [Vitamin D] 50,000 unit PO PEREZ 07/25/17 [History Confirmed 02/26/18] atorvastatin 80 mg tablet 80 mg PO QHS #30 tab 12/03/17 [Rx Confirmed 02/26/18] lisinopril 20 mg tablet 20 mg PO QDAY #30 tab 02/07/18 [Rx Confirmed 02/26/18] metoprolol succinate ER 50 mg tablet,extended release 24 hr 50 mg PO QDAY #30 tab 02/07/18 [Rx Confirmed 02/26/18] isosorbide mononitrate ER 120 mg tablet,extended release 24 hr 120 mg PO .COMPLEX 02/22/18 [History Confirmed 02/26/18] [facility] Medical History Atherosclerosis of other coronary artery bypass graft(s) with other forms of angina pectoris (Chronic) Atherosclerosis of coronary artery of pechanga heart without angina pectoris (Acute) Obesity (Chronic) Hyperlipidemia (Chronic) Nicotine dependence in remission (Chronic) Hypertension (Chronic) Abnormal stress test (Resolved) Surgical History History of left heart catheterization (Chronic 07/26/17) Presence of aortocoronary bypass graft (Chronic 01/15/17) Family History Father Heart disease Mother CVA (cerebral vascular accident) Social History Smoking Status: Light Smoker (<10/day) second hand exposure: Yes alcohol intake: current alcohol intake frequency: a few times a week Alcohol type: beer substance use type: does not use caffeine: No what type of physical activity do you participate in: other details: cardiac rehab frequency: 3-4 times per week Review of Systems Const CONSTITUTIONAL: Positive headache(s); negative anorexia, body ache, chills, daytime sleepiness, fever(s), night sweats, oral thrush, stops breathing during sleep, weight loss, sleeping in chair, fatigue, weight loss, weight gain, frequent colds, seasonal allergies, other or orthopnea EETM Ear Nose Throat Mouth: Positive hard of hearing, headache(s), nasal congestion and nasal discharge; negative hearing normal, hoarseness, dry mouth in morning, change in vision, itchy eyes, eye pain, swallowing Difficulty, ear pain, nose bleed, mouth pain, post nasal drip, sinus pain, sinus pressure, sore throat or other (feels symptoms are due to weather related changes) Cardio Cardiovascular: Negative chest pain, chest pain at rest, chest pain with activity, irregular heart rhythm, edema, shortness of breath when lying down, palpitations, murmur or other Resp Respiratory: Positive shortness of breath shortness of breath: Positive with activity and cough cough: Positive non-productive; negative as per HPI, pain with cough, wheezing, chest congestion, chest tightness, pain on inspiration, inhalers, increase use of rescue inhalers, snoring, apnea or other Gastro Gastrointestional: Negative bloody stools, change in appetite, difficulty swallowing, reflux, hematemesis, melena stool, loose stool, constipation or other Genitourinary: Negative blood in urine, nocturia, pain with urination or other Musc Musculoskeletal: Negative body pain, back pain, neck pain or other Skin/Breast Skin/Breast: Negative dry skin, itching, rash, unusual bruising, breast lump or other Neuro Neurological: Negative restless legs, confusion, weakness or other Psych Psychocological: Negative abnormal sleep pattern, anxiety, thoughts of hurting self/others, hopelessness or other Lymph Lymphatic: Negative easy bleeding, easy bruising, swollen lymph nodes or other Exam Const Constitutional: Positive conversant, cooperative, in no acute respiratory distress, healthy appearing, well developed, well nourished, good hygiene and obese Head Head: Positive normocephalic and atraumatic; negative cyanosis of lips/distal nose Eyes Eye: Positive clear conjunctiva and nystagmus; negative scleral abnormality Ears Ear: Positive hard of hearing and external ears normal; negative hearing normal Nose Nose: Positive external nose normal and no nasal discharge; negative epistaxis Mouth Mouth: Positive oral mucosae normal, no lesions, crowded posterior oropharynx and poor dentition; negative post nasal drip, malodorous breath or oral thrush present Mallampati Score: III: Mallampati Score Neck Neck: Positive normal visual inspection, full ROM, trachea midline, thick neck and male neck greater than 43 cm (17 in); negative lymphadenopathy, JVD or tender Chest Wall Chest: Positive normal inspection of the chest and symmetric chest movement; negative increased A/P diameter Resp lung sounds: Positive clear to auscultation, good air exchange, normal expiratory time and normal respiratory effort; negative diminished, wheezes, rhonchi, rales, dullness to percussion or wheeze present on forced exhalation Cardio Cardiac: Positive regular rate, regular rhythm, S1 normal and S2 normal; negative murmur GI GI: Positive normal to inspection, normal bowel sounds and obese; negative distended Genitourinary: Positive deferred Musc Musculoskeletal: Positive steady gait and ROM normal; negative kyphosis or scoliosis Skin Pulmonary Skin Exam: Positive intact; negative rash, lesion, ulcers, erythema, scaly or dermal atrophy Pulses Pulse: Yes pulses normal x4 extremities Extremities Extremities: Yes capillary refill normal, No clubbing, No cyanosis, No edema Neuro Neurologic: Yes conversant, Yes no focal neuro deficits, Yes cooperative, Yes normal cognition, Yes normal coordination, Yes normal concentration, Yes understands questions Lymph Lymphatic: No lymphadenopathy, No tenderness, No cervical adenopathy, No axillary adenopathy Psych Appearance: Positive grossly normal, eye contact and well kempt Mental Status: Positive mental status grossly normal Mood: Positive congruent mood Affect: Positive normal affect Coding Level of Care Code Off vis,est,level 4 Diagnoses DAVID (obstructive sleep apnea) G47.33 PEREZ (dyspnea on exertion) R06.09 Class 2 severe obesity due to excess calories with serious comorbidity and body mass index (BMI) of 36.0 to 36.9 in adult E66.01; Z68.36 Obesity type: due to excess calories Obesity classification: adult class 2 (BMI 35 - 39.9) Serious obesity comorbidity presence: with serious comorbidity Body mass index: BMI 36.0-36.9 Cigarette nicotine dependence in remission F17.211 Nicotine product type: cigarettes 02/26/18 1219 <Electronically signed by Nahomy ROSALESC> Date Nahomy Pino NP-C Norm Signature: Date (if applicable) CC: Joel Yeseniasally OFFICE VISIT REPORT Observed: 02/22/2018 Status: F Source: [place] 5:07 PM [facility] [address] [address] OFFICE VISIT Date of Service: 02/22/18 MR#: [id number] Acct: [id number] Patient: SAVAGE ANDERS II Rep #: [id number] : 1960 Provider: Lj Francisco MD Age/Sex: 57/M Location: [facility] [place] Status: Signed Intake Vital Signs02/22/18 Blood Pressure 130/82 02/22/18 Blood Pressure Location Lt brachial 02/22/18 Blood Pressure Position Sitting Intake Visit Reasons: 2 wk bp ck per DJN Chief Complaint: . Routine follow-up Allergies No Known Allergies Allergy (Verified 12/27/17 08:18) Medications Aspirin 81 mg PO DAILY@0800 10/27/16 [History Confirmed 02/07/18] Hydrochlorothiazide 12.5 mg PO DAILY 10/27/16 [History Confirmed 02/07/18] Nitroglycerin [Nitrostat] 0.4 mg SUBLINGUAL Q5M PRN 10/27/16 [History Confirmed 02/07/18] Pantoprazole Sodium [Protonix] 40 mg PO DAILY 03/21/17 [History Confirmed 12/27/17] Ergocalciferol [Vitamin D] 50,000 unit PO PEREZ 07/25/17 [History Confirmed 02/07/18] atorvastatin 80 mg tablet 80 mg PO QHS #30 tab 12/03/17 [Rx Confirmed 02/07/18] lisinopril 20 mg tablet 20 mg PO QDAY #30 tab 02/07/18 [Rx Confirmed 02/07/18] metoprolol succinate ER 50 mg tablet,extended release 24 hr 50 mg PO QDAY #30 tab 02/07/18 [Rx Confirmed 02/07/18] isosorbide mononitrate ER 60 mg tablet,extended release 24 hr 60 mg PO QAM 02/22/18 [History Confirmed 02/22/18] Nursing Note Pt is here for a bp check d/t change in medication. During OV 02/07/18 Dr. Francisco instructed pt to increase lisinopril to 20 mg po daily, and increase toprol to 50 mg po daily. Pt states I feel no different, pt is SOB and has left sided achey chest discomfort that feels like it might radiate down left arm. BP 130/82, HR 84, RR 16. Chucky Khan NP reviewed vitals and pt is to 1.) increase isosorbide to 60 mg po daily, 2.) bp check and cuff correlation in 1 week. Pt repeated back instructions accurately. 02/22/18 170 <Electronically signed by Chucky ROSALESC> Date Chucky Khan NP-C Cosigner Signature: Date (if applicable) CC: Amy John CARDIOLOGY VISIT Observed: 02/07/2018 Status: F Source: [place] RE[place] 3:43 PM [facility] [place] REPOSITORY [facility] [address] [place] [address] OFFICE VISIT Date of Service: 02/07/18 MR#: [id number] Acct: [id number] Name: YOSELIN ANDERS II Rep #: [id number] : 1960 Provider: Lj Francisco MD Age/Sex: 57/M Location: [facility] [place] Status: Signed HPI HPI Chief Complaint: . Routine follow-up Details: HPI Mr. Anders Is a Very Pleasant 56-year-old Nondiabetic Gentleman with a History of Hypertension, Hypercholesterolemia,Positive Smoking History for the past 40 Years of Approximately One Pack of Cigarettes per Day. Patient Was Recently Admitted to [facility] in December [address] Espana. At That Time He Was Admitted with Chest Pain Underwent a Catheterization and Was Found to Have Significant Three-Vessel Coronary Disease. [facility] He Underwent Successful 3 Vessel Bypass Surgery by Dr. Rey at That Time. He Received a HAMILTON to the LAD, Saphenous Vein Graft to the Obtuse Marginal #1, and a Saphenous Vein Graft to the RCA. His Symptoms of Chest Burning with Exertion Completely Resolvedand He Attended Cardiac Rehab without Difficulty. During Rehab Sessions He Has Significant Hypertension. Unfortunately despite This He Has Continued to Smoke but Is Now down to around 5 Cigarettes per Day. patient Was Recently Admitted to [facility] on 07/26/17 with Substernal Chest PressureRadiating up into His Left Upper Chest While at Rest. He Sought Medical Attention His EKG Showed No Acute Changes. His Tropis Were Negative 4, and Underwent a Non-Walking Nuclear Stress Test Which Was indeterminate. He Underwent a Repeat Left Heart Catheterization with Graft Angiography by Me on 07/26/17 which Demonstrated Significant Three-Vessel Coronary Disease, a Patent HAMILTON to the LAD, Patent Saphenous Vein Graft to the OM #1, an Occluded Saphenous Vein Graft to the PDA. His [place]aver Coronary Had a 70% Proximal Stenosis Followed by 100% Distal Occlusion. He Had Adequate Amhe-Cc-Pgdhc Collaterals.Patient Was Treated Medically. He Is Now Here in Follow-Up. Since Her Last Visit, the Patient Continues to Smoke about 5 Cigarettes per Day. He Failed Chantix in the past. He Denies Any Exertional Chest Pain but Does Complain ofEpisodes of Substernal Chest PainWhile at Rest. He Did Take a Supplement Nitroglycerin Yesterday without Appreciable Effect. He Does Not Formally Exercise, and Is Applying for Disability. Patient has recently been diagnosed with obstructive sleep apnea and is awaiting fitting for his mask. Upon review of his pressures in the pulmonary office they were found to be quite elevated at our office was not notified and he had no changes to his medications. Thankfully he has had no chest pain, angina, and is tolerating Imdur well. Blood pressures recently have been 177/105. In Our Office Today His Blood pressure Is 144/72 and Pulse Is 98 and Regular. His Physical Exam Is As below. His Lipids As of 07/26/17 Showed LDL of 97 and HDL HDL of 31. Intake Vital Signs02/07/18 Height 5 ft 9 in Intake Visit Reasons: 6 M FU Allergies No Known Allergies Allergy (Verified 12/27/17 08:18) Medications Aspirin 81 mg PO DAILY@0800 10/27/16 [History Confirmed 02/07/18] Hydrochlorothiazide 12.5 mg PO DAILY 10/27/16 [History Confirmed 02/07/18] Nitroglycerin [Nitrostat] 0.4 mg SUBLINGUAL Q5M PRN 10/27/16 [History Confirmed 02/07/18] Pantoprazole Sodium [Protonix] 40 mg PO DAILY 03/21/17 [History Confirmed 12/27/17] Ergocalciferol [Vitamin D] 50,000 unit PO PEREZ 07/25/17 [History Confirmed 02/07/18] atorvastatin 80 mg tablet 80 mg PO QHS #30 tab 12/03/17 [Rx Confirmed 02/07/18] isosorbide mononitrate ER 30 mg tablet,extended release 24 hr 30 mg PO QAM 02/07/18 [History Confirmed 02/07/18] lisinopril 20 mg tablet 20 mg PO QDAY #30 tab 02/07/18 [Rx Confirmed 02/07/18] metoprolol succinate ER 50 mg tablet,extended release 24 hr 50 mg PO QDAY #30 tab 02/07/18 [Rx Confirmed 02/07/18] [facility] Medical History Atherosclerosis of other coronary artery bypass graft(s) with other forms of angina pectoris (Chronic) Atherosclerosis of coronary artery of pe[place] heart without angina pectoris (Acute) Obesity (Chronic) Hyperlipidemia (Chronic) Nicotine dependence in remission (Chronic) Hypertension (Chronic) Abnormal stress test (Resolved) Surgical History History of left heart catheterization (Chronic 07/26/17) Presence of aortocoronary bypass graft (Chronic 01/15/17) Family History Father Heart disease Mother CVA (cerebral vascular accident) Social History Smoking Status: Light Smoker (<10/day) second hand exposure: Yes alcohol intake: current alcohol intake frequency: a few times a week Alcohol type: beer substance use type: does not use caffeine: No what type of physical activity do you participate in: other details: cardiac rehab frequency: 3-4 times per week ROS Const Const: Negative for fatigue, weakness, difficulty sleeping, frequent falls, headache(s) or excessive sweating Eyes Eyes: Negative for loss of peripheral vision, transient loss of vision, blurry vision or double vision ENT ENT: Negative for headache(s), dizziness, Nosebleed/epistaxis or balance problems Cardio Chest Pain: No Edema: None Muscle aches with walking: None Resp Respiratory: Positive for SOB with activity (SOB with little activity); negative for SOB at rest, SOB orthopnea\SOB lying down or paroxysmal nocturnal dyspnea GI GI: Negative nausea or heartburn : Negative for hematuria Musc Musc: Negative for muscle aches/ myalgia, muscle weakness, joint pain or balance problems Skin Skin: Negative non-healing lesions, unusual bruising or rash Neuro Neuro: Negative for weakness, frequent falls, blurry vision, headache(s), dizziness, lightheadedness, orthostatic symptoms or double vision Johnathon Hematologic/Lymphatic: Negative for easy bruising Endo Endo: Negative for fatigue, excessive sweating or increased thirst/drinking Psych Psych: Negative for anxiety or depression Allergy Allergy/Immunology: Negative for hives, Negative for rash Cardiology Exam Const Appearance: cooperative, healthy appearing and no acute distress Nutritional Appearance: well nourished Orientation: alert, oriented x3 and oriented to person Head Head: normal to inspection, atraumatic and normocephalic Nose: external nose normal Face and Sinus: face symmetric Mouth: oral mucosae normal Eyes General: appearance normal, both eyes and all related structures Eyelids: eyelids normal Conjunctivae: conjunctivae normal Pupils: PERRL and normal by confrontation EOM: EOM intact bilaterally Neck Neck: normal visual inspection and full ROM Carotids: normal carotid upstroke Chest Chest inspection: normal inspection of the chest Auscultation: Bilateral: Clear to Auscultation Cardio Palpation: normal PMI Rate: regular rate Rhythm: regular rhythm Heart sounds: S1 normal and S2 normal GI GI: normal to inspection, no hepatosplenomegaly and bowel sounds present Neuro General: alert, oriented x3, awake, CN's II-XI intact bilaterally and moves all extremities Skin Skin: no rashes or lesions noted Extremities Pulses: Normal: Right Femoral Pulse, Left Femoral Pulse, Right Dorsalis Pedis Pulse, Left Dorsalis Pedis Pulse, Right Posterior Tibial Pulse, Left Posterior Tibial Pulse, Right Radial Pulse, Left Radial Pulse Lower Extremity Edema: None: Bilateral Psych Psychological: normal affect Assessment AND Plan 1. Atherosclerosis of coronary artery of [place] heart without angina pectoris I25.10 CABG x 3 HAMILTON-LAD, SVG-OM1 and SVG-Distal RCA 01/15/2017 Plan 1. Coronary artery disease: No exertional anginal symptoms at this time. The patient has known severe pechanga coronary artery disease as well as an occluded saphenous vein graft to the PDA. His HAMILTON to his LAD and saphenous vein graft to his OM were widely patent. There appear to be no opportunities for intervention at this time. I recommended adjustment of his medications tomorrow optimize his blood pressure. We will increase his lisinopril to 20 mg a day and his metoprolol to 50 mg daily. In addition he will continue his Imdur and hydrochlorothiazide. I requested the patient get a new blood pressure cuff, take his blood pressure 2 times a day and record it and bring it with him in 2 weeks time for a blood pressure check. If his heart rate is still elevated we may increase his Toprol. 2. Essential hypertension I10 Plan 2. Hypertension: Patient is on polypharmacy for his blood pressure and there have been several blood pressure evaluations which have shown him to have a elevated diastolic pressure greater than 100. We will continue his hydrochlorothiazide, Imdur, increase his lisinopril to 20 mg a day, and double his Toprol to 50 mg a day. Blood pressure check in 2 weeks time. Hopefully with initiation of CPAP therapy his blood pressure will improve due to his obstructive sleep apnea. 3. Hyperlipidemia E78.5 Plan 3. Hypercholesterolemia: Patient's most recent lipid profile showed that his LDL was not quite at goal despite max dose Lipitor. We will repeat his fasting lipid profile in 2 weeks time. Patient may require switching over to Crestor. 4. Return office in 6 months. This note was generated using a voice recognition system and there may be incorrect words, spelling or punctuation that were not noted when reviewing the office note prior to saving. Plan Detail Other Medications New: Discontinued: Follow Up 6 Months (Francisco) 2 Weeks (BP check) Coding Level of Care Code Off vis,est,level 3 Diagnoses Atherosclerosis of coronary artery of [place] heart without angina pectoris I25.10 Essential hypertension I10 Hyperlipidemia E78.5 Coding Level of Care Code Off vis,est,level 3 Diagnoses Atherosclerosis of coronary artery of [place] heart without angina pectoris I25.10 Essential hypertension I10 Hyperlipidemia E78.5 02/07/18 1543 <Electronically signed by Lj Francisco MD> Date Lj Francisco MD Cosigner Signature: Date (if applicable) CC: PULMONARY FUNCTION Observed: 02/07/2018 Status: F Source: [place] TEST 1:37 PM [facility] [place] REPOSITORY [facility] Pulmonary Services/Neurology [address] [place] [address] MR#: [id number] Acct: [id number] Name: YOSELIN ANDERS II Rep #: [id number] : 1960 57 From: Valdo Jha DO Referring Dr: Valdo Jha D.O. Status: REG CLI Ordering Dr: Date: Location: [facility] Sex: M C INTRODUCTION: Patient is a 57-year-old male currently under the care of myself that presents for pulmonary function testing secondary to a diagnosis of dyspnea. Respiratory therapy reports good patient effort reports no other concerns. Bronchodilators were used during testing. INTERPRETATION: Forced expiration spirometry demonstrates no evidence of a large airways obstructive ventilatory defect. There was no significant response to aerosolized bronchodilators, based upon strict ATS criteria. Spirogram is of good quality and plateau gradually. Body plethysmography was performed and reveals lung volumes to be within normal limits. Diffusing capacity by single breath CO is at the lower limits of normal at 72% of predicted. IMPRESSION: These pulmonary function studies are essentially within normal limits. Diffusing capacity is at the lower limits of normal currently. 02/07/18 1337 <Electronically signed by Valdo Jha DO> Date Valdo Jha DO CC: Valdo Jha D.O.; Joel Weirtyrel Date Dictated: 02/07/181334 Date Transcribed: 02/07/181334 Honey Extractor: EZRA Signed 6 MINUTE WALK TEST Observed: 02/06/2018 Status: F Source: [place] 12:01 PM [facility] [place] REPOSITORY [facility] Pulmonary Services/Neurology [address] [place] [address] MR#: [id number] Acct: [id number] Name: SAVAGE ANDERS II Rep #: [id number] : 1960 57 From: Valdo Jha DO Referring Dr: Valdo Jha D.O. Date: Ordering Dr: Sex: M C Location: PSN PSN 6 Minute Walk Test - 6 Minute Walk Test 6 Minute Walk Test: 6 Minute Walk Test PSN:6-Minute Walk Test Start: 02/06/18 09:23 Freq: Status: Active Protocol: RESP.6MINW Document 02/06/18 09:23 [place] (Rec: 02/06/18 09:26 SFENTON [id number]) 6 Minute Walk Test Date Performed 02/06/18 Time Performed 09:00 Height 5 ft 9 in Weight: 243 lb Weight in Pounds 243.[address]: Valdo Jha Assistive device used: None Pre-test Oxygen Delivery Method Room Air Pulse Ox (%) 94 Pulse Rate (60-100 beats/min) 104 H Dyspnea Matthias Scale (0-10) 0.5 Exertion Matthias Scale (6-20) 6 1st minute Oxygen Delivery Method Room Air Pulse Ox (%) 95 Pulse Rate (60-100 beats/min) 131 H 2nd minute Oxygen Delivery Method Room Air Pulse Ox (%) 94 Pulse Rate (60-100 beats/min) 116 H 3rd minute Oxygen Delivery Method Room Air Pulse Ox (%) 94 Pulse Rate (60-100 beats/min) 114 H 4th minute Oxygen Delivery Method Room Air Pulse Ox (%) 94 Pulse Rate (60-100 beats/min) 111 H 5th minute Oxygen Delivery Method Room Air Pulse Ox (%) 94 Pulse Rate (60-100 beats/min) 116 H 6th minute Oxygen Delivery Method Room Air Pulse Ox (%) 94 Pulse Rate (60-100 beats/min) 115 H Dyspnea Matthias Scale (0-10) 3 Exertion Matthias Scale (6-20) 12 Post-test Oxygen Delivery Method Room Air Pulse Ox (%) 96 Pulse Rate (60-100 beats/min) 102 H Full Laps Walked 16 Partial Lap, Number of Tiles Walked 12 Total Distance Walked (ft) 956 - Interpretation Interpretation: The patient ambulated 956 feet over the course of 6 minutes on room air without assistive devices or breaks. Pretesting oxygen saturation was noted to be 94% on room air. With ambulation, the rebecca oxygen saturation was 94%. The patient did develop physiologic tachycardia with exertion, suggestive of deconditioning. There was no evidence of a significant exertional oxygen desaturation. - Recommendations Recommendations: There is no indication for the use of supplemental oxygen at this time. 02/06/18 1201 <Electronically signed by Valdo Jha DO> Date Valdo Jha DO CC: Date Dictated: 02/06/18 1159 Date Transcribed: 02/06/18 115 Honey Extractor: Valdo Jha DO Signed PULMONARY VISIT REPORT Observed: 01/01/2018 Status: F Source: [place] 7:47 AM [facility] Pulmonary Medicine [address] [place] [address] OFFICE VISIT Date of Service: 01/01/18 MR#: [id number] Acct: [id number] Name: SAVAGE ANDERS II Rep #: [id number] : 1960 Provider: Valdo Jha D.O. Age/Sex: 57/M Location: [facility] [place] Status: Signed Assessment AND Plan 1. PEREZ (dyspnea on exertion) R06.09 Plan Prior pulmonary function testing only demonstrated the presence of a mild restrictive ventilatory defect with asymmetric reduction in diffusing capacity. The patient does have a history of coronary artery disease for which he is status post CABG. He does report interval worsening in the degree of his shortness of breath. Given that he relapsed and began smoking cigarettes again this past October, we will plan to obtain repeat pulmonary function testing and a repeat 6 minute walk test. I have strongly encouraged the patient to follow-up with cardiology as scheduled. The patient's dyspnea may certainly be related to his current body habitus and generalized deconditioning. Orders Orders: 2. CAD (coronary artery disease) I25.10 Plan Continue current medical management and follow-up with cardiology as scheduled. 3. Tobacco dependency F17.200 Plan The patient does have an extensive smoking history and had previously quit. However, he reports relapsing this past October and is now smoking 5- 8 cigarettes per day. He was again counseled regarding the importance of working towards complete tobacco cessation once again. Orders Orders: 4. Hypersomnia G47.10 Plan The patient endorses symptoms of daytime hypersomnolence, nonrestorative sleep and frequent daytime napping, all of which is concerning for underlying sleep disordered breathing. Therefore, the patient will be referred to the sleep lab to undergo a diagnostic polysomnogram and follow-up titration study, if clinically indicated. Plan Detail Other Orders Orders: Follow Up 2 Months ([facility]) HPI HPI Comments Details: The patient is a 57-year-old male who presents to the clinic today for a routine scheduled follow-up office visit. If you recall, the patient has a history of coronary artery disease, for which he has undergone surgical revascularization in 2017. The patient does have an approximate [id number] smoking history. His also continues to smoke and he is therefore exposed to some degree of secondhand smoke. The patient has chronic, baseline shortness of breath with moderate amounts of physical exertion. 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 He did grow up in a smoking household and has resided in [place] most of his entire life. Surface echocardiogram from December 2016 revealed LV systolic function to be approximately 50%. Pulmonary function testing completed in April 2017 revealed no evidence of a large airways obstructive ventilatory defect. There was evidence of a mild restrictive ventilatory defect with an associated mild reduction in diffusing capacity. 6 minute walk test also completed at that time showed no evidence of exertional hypoxemia. A chest completed in September 2017 revealed no evidence for PE. The mediastinum and pulmonary parenchyma were both noted to be normal at that time. Today, the patient reports that he feels as if his shortness of breath has increased since his last office visit. The patient has utilized albuterol in his home environment previously, but has noted no symptom response to the use of the medication. Unfortunately, the patient relapsed and began smoking again this past October. He states that he is currently smoking 5-8 cigarettes per day. His does continue to smoke around him. He does report occasional wheezing, but denies chest tightness. He was last seen by cardiology sometime in the fall and states that he has an upcoming appointment with them next month. The patient currently sleeps 4-6 hours per night. He does report the presence of excessive daytime sleepiness, nonrestorative sleep and frequent daytime napping. He has never undergone evaluation via polysomnogram in the past. The patient currently denies fevers, chills or night sweats. He denies the presence of a cough. His weight has been relatively stable. He denies dizziness or lightheadedness. Intake Vital Signs01/01/18 Height 5 ft 8 in 01/01/18 Weight: 247 lb Intake Visit Reasons: 6 M FU Allergies No Known Allergies Allergy (Verified 12/27/17 08:18) Medications Aspirin 81 mg PO DAILY@0800 10/27/16 [History Confirmed 12/27/17] Hydrochlorothiazide 12.5 mg PO DAILY 10/27/16 [History Confirmed 12/27/17] Nitroglycerin [Nitrostat] 0.4 mg SUBLINGUAL Q5M PRN 10/27/16 [History Confirmed 12/27/17] Albuterol Inhaler [Ventolin Hfa] 1 - 2 puff INHALATION Q4H PRN PRN #1 inhaler 11/07/16 [Rx Confirmed 12/27/17] Acetaminophen [Tylenol] 500 mg PO Q6H PRN PRN 03/21/17 [History Confirmed 12/27/17] Metoprolol Succinate [Toprol Xl] 25 mg PO DAILY 03/21/17 [History Confirmed 12/27/17] Pantoprazole Sodium [Protonix] 40 mg PO DAILY 03/21/17 [History Confirmed 12/27/17] Ergocalciferol [Vitamin D] 50,000 unit PO PEREZ 07/25/17 [History Confirmed 12/27/17] atorvastatin 80 mg tablet 80 mg PO QHS #30 tab 12/03/17 [Rx Confirmed 12/27/17] lisinopril 10 mg tablet 10 mg PO DAILY #30 tab 12/17/17 [Rx Confirmed 12/27/17] PFSH Medical History Hyperlipidemia (Acute) Subendocardial ischemia (Acute) PEREZ (dyspnea on exertion) (Acute) Nicotine dependence in remission (Acute) Body mass index (BMI) of 36.0-36.9 in adult (Acute) Daytime sleepiness (Acute) Chest pain (Acute) Hypertension (Chronic) Tobacco abuse (Chronic) CAD (coronary artery disease) (Chronic) Abnormal stress test (Acute) Surgical History History of coronary artery bypass graft (Resolved) Presence of aortocoronary bypass graft (Acute) Family History Father Heart disease Mother CVA (cerebral vascular accident) Social History Smoking Status: Light Smoker (<10/day) second hand exposure: Yes alcohol intake: current alcohol intake frequency: a few times a week Alcohol type: beer substance use type: does not use caffeine: No what type of physical activity do you participate in: other details: cardiac rehab frequency: 3-4 times per week Review of Systems Const CONSTITUTIONAL: Positive chills, daytime sleepiness, night sweats, fatigue and headache(s); negative anorexia, body ache, fever(s), oral thrush, stops breathing during sleep, weight loss, sleeping in chair, weight loss, weight gain, frequent colds, seasonal allergies, other or orthopnea EETM Ear Nose Throat Mouth: Positive headache(s), dry mouth in morning, itchy eyes and hearing normal; negative hard of hearing, hoarseness, change in vision, eye pain, swallowing Difficulty, ear pain, nose bleed, mouth pain, nasal congestion, nasal discharge, post nasal drip, sinus pain, sinus pressure, sore throat or other Cardio Cardiovascular: Negative chest pain, chest pain at rest, chest pain with activity, irregular heart rhythm, edema, shortness of breath when lying down, palpitations, murmur or other Resp Respiratory: Positive as per HPI, shortness of breath shortness of breath: Positive while talking, with activity and worsening, wheezing, chest congestion and cough cough: Positive non-productive; negative pain with cough, chest tightness, pain on inspiration, inhalers, increase use of rescue inhalers, snoring, apnea or other Gastro Gastrointestional: Negative bloody stools, change in appetite, difficulty swallowing, reflux, hematemesis, melena stool, loose stool, constipation or other Genitourinary: Negative blood in urine, nocturia, pain with urination or other Musc Musculoskeletal: Negative body pain, back pain, neck pain or other Skin/Breast Skin/Breast: Negative dry skin, itching, rash, unusual bruising, breast lump or other Neuro Neurological: Negative restless legs, confusion, weakness or other Psych Psychocological: Positive abnormal sleep pattern and hopelessness; negative anxiety, thoughts of hurting self/others or other Lymph Lymphatic: Negative easy bleeding, easy bruising, swollen lymph nodes or other Exam Const Constitutional: Positive conversant, cooperative, in no acute respiratory distress, well developed, well nourished, smells of smoke and obese A bit unkempt in appearance Head Head: Positive normocephalic and atraumatic; negative cyanosis of lips/distal nose Eyes Eye: Positive clear conjunctiva; negative nystagmus or scleral abnormality Ears Ear: Positive hearing normal; negative hard of hearing Nose Nose: Positive external nose normal; negative epistaxis Mouth Mouth: Positive oral mucosae normal and posterior oropharynx is adequate; negative no lesions or post nasal drip Neck Neck: Positive normal visual inspection and trachea midline; negative lymphadenopathy Chest Wall Chest: Positive symmetric chest movement Normal AP diameter. Resp lung sounds: Positive diminished and normal expiratory time; negative wheezes, rhonchi or rales Cardio Cardiac: Positive regular rate, regular rhythm, S1 normal and S2 normal; negative rub, gallop or murmur GI GI: Positive normal bowel sounds and obese Soft without distention Genitourinary: Positive deferred [facility] Musculoskeletal: Positive steady gait Skin Pulmonary Skin Exam: Positive intact; negative lesion, ulcers, dermal atrophy or rash Pulses Pulse: Yes Pedal pulses present: Extremities Extremities: No clubbing, No cyanosis, No edema Neuro Neurologic: Yes conversant, Yes no focal neuro deficits, Yes cooperative Lymph Lymphatic: No lymphadenopathy Psych Appearance: Positive grossly normal Mental Status: Positive mental status grossly normal Mood: Positive congruent mood Affect: Positive normal affect Coding Level of Care Code Off vis,est,level 4 Diagnoses PEREZ (dyspnea on exertion) R06.09 CAD (coronary artery disease) I25.10 Tobacco dependency F17.200 Hypersomnia G47.10 01/01/18 0747 <Electronically signed by Valdo Jha DO> Date Valdo Christensenigner Signature: Date (if applicable) CC: Joel Davis ALLERGIES ALLERGIES DATE TYPE / CODE NAME / CODE REACTION SEVERITY SOURCE 12/13/2018 Drug No Known Unknown [facility] Allergy/416 Allergies/F82833 Hospital 171364(SNOM 0388(RXNORM) Repository ED CT) Drug NO KNOWN [facility] Class/93354 ALLERGIES [address] [place] 1003(SNOMED Repository CT) ENCOUNTERS ENCOUNTERS ADMIT/DISCHARGE ACCOUNT ADMITTING ENCOUNTER LOCATION SOURCE NUMBER CLASS 12/13/2018/12/13/19 [id number] Emergency [facility] 19 [facility] Hospital ing:ED Repository 11/22/2018/11/22/20 [id number] Ambulatory BMSBuilding:B [place] [address] [facility] Repository 10/30/2018/10/30/20 [id number] Ambulatory [address] Repository 10/24/2018/10/25/20 [id number] Ambulatory [address] Repository 10/11/2018/10/11/20 [id number] Ambulatory [address] Repository 10/10/2018/10/10/20 [id number] Ambulatory [address] Repository 10/10/2018/10/11/20 [id number] KAMILAH Ambulatory [address] Repository 10/04/2018/10/04/20 [id number] Ambulatory [address] Repository 09/30/2018/09/30/20 [id number] Ambulatory [address] Repository 09/30/2018/10/02/20 [id number] Ambulatory [address] Repository 09/11/2018/09/11/20 [id number] Ambulatory [address] Repository 09/11/2018/09/11/20 [id number] Ambulatory [address] Repository 09/11/2018/09/11/20 [id number] Ambulatory [address] Repository 08/29/2018/08/30/20 [id number] Ambulatory [address] Repository 08/29/2018/09/02/20 [id number] Ambulatory [address] Repository 08/27/2018/08/28/20 [id number] Ambulatory [address] Repository 07/18/2018/07/18/20 [id number] Ambulatory BMSBuilding:B [place] 18 [place].[facility] Hospital Repository 06/18/2018/06/18/20 [id number] Ambulatory BMSBuilding:B [place] 18 [facility] Hospital Repository 04/25/2018 [id number] [facility] Repository 04/25/2018 [id number] Ambulatory BMSBuilding:W [facility] Repository 04/25/2018 [id number] Ambulatory BMSBuilding:B [place].[facility] Repository 04/17/2018 [id number] Ambulatory BMSBuilding:B [place] MS.[facility] Repository 04/17/2018 [id number] [facility]ulatory [facility] ing[facility] Repository 04/17/2018 [id number] Ambulatory BMSBuilding:W [facility] Repository 04/12/2018/04/12/20 [id number] Ambulatory BMSBuilding:B [place] 18 [facility] Repository 03/01/2018/03/01/20 [id number] Ambulatory BMSBuilding:B [place] 18 [facility] Repository 02/26/2018/02/27/20 [id number] Ambulatory BMSBuilding:B [place] 18 MS.[facility] Hospital Repository 02/22/2018/02/23/20 [id number] Ambulatory BMSBuilding:B [place] 18 [facility] Repository 02/12/2018 [id number] [facility] ing: Repository 02/07/2018/02/08/20 [id number] Ambulatory BMSBuilding:B [place] 18 [facility] Repository 02/07/2018 [id number] Ambulatory [facility] Hospital ing:PSN Repository 02/07/2018 [id number] Ambulatory BMSBuilding:W [facility] Repository 02/07/2018 [id number] Ambulatory BMSBuilding:B [place] Repository 02/06/2018 [id number] Ambulatory [facility] Hospital ing:PSN Repository 02/06/2018 [id number] Ambulatory BMSBuilding:W [facility] Repository 01/29/2018 [id number] Ambulatory [facility] Hospital ing:SL Repository 01/01/2018/01/01/20 [id number] Ambulatory BMSBuilding:B [place] 18 [place].[facility] Hospital Repository 12/27/2017 [id number] Ambulatory [facility] Repository PAYERS PAYERS ENCOUNTER GUARANTOR PAYER SUBSCRIBER SOURCE 12/13/2018 SAVAGE [place] WORKMAN Primary SAVAGE T WORKMAN [place] [address] Insurance:[place] IIDOB: [facility] [id number] Hospital 70641Srb: (330) PLANPolicy Number: Repository [phone] () [id number] Date:5565-45-55DT [address] [place] [address] 86850JW: 12/13/2018 Secondary NOT GIVENUNK [place] Insurance:SELF PAY [facility] Number: Effective Repository Date:2018-12-13 11/22/2018 SAVAGE [place] WORKSALLY Primary SAVAGE T WORKMAN [place] [address] Insurance:[place] IIDOB: [facility] [id number] Hospital 82225Ufb: (330) PLANPolicy Number: Repository [phone] () [id number] Date:9522-98-44ZN [address] [place] [address] 71290BK: 11/22/2018 Secondary NOT GIVENUNK [place] Insurance:SELF PAY [facility] Number: Effective Repository Date:2018-11-13 07/18/2018 SAVAGE Pinzon WORKMAN Primary [place] WORKMAN [place] [address] Insurance:[place] IIDOB: [facility] [id number] Hospital 16922Udp: (330) PLANPolicy Number: Repository [phone] () [id number] Date:8505-76-69HT [address] [address]DD: 07/18/2018 Secondary NOT GIVENUNK [place] Insurance:SELF PAY [facility] Number: Effective Repository Date:2018-07-09 06/18/2018 SAVAGE [place] WORKMAN Primary S[place]AGE [place] WORKMAN [place] [address] Insurance:[place] IIDOB: [facility] [id number] [address]Tel: (330) PLANPolicy Number: Repository [phone] () [id number] Date:6033-47-64[address] [place] [address]W[place]: 06/18/2018 Secondary NOT GIVENUNK [place] Insurance:SELF PAY [facility] Number: Effective Repository Date:2018-06-10 04/25/2018 SAVAGE Pinzon WORKMAN Primary S[place]AGE [place] WORKMAN [place] [address] Insurance:[place] IIDOB: [facility] [id number] [place] [address]Tel: (330) PLANPolicy Number: Repository [phone] () [id number] Date:2596-22-06UX [address] [place] [address]PZ: 04/25/2018 Secondary NOT GIVENUNK [place] Insurance:SELF PAY [facility] Number: Effective Repository Date:2018-04-23 04/25/2018 SAVAGE [place] WORKMAN Primary SAVAGE [place] WORKMAN [place] [address] Insurance:[place] IIDOB: [facility] [id number] Hospital 62[address]Yqr: (330) PLANPolicy Number: Repository [phone] () [id number] Date:3075-73-07WN [address] [address]YH: 04/25/2018 Secondary NOT GIVENUNK [place] Insurance:SELF PAY [facility] Number: Effective Repository Date:2018-04-25 04/25/2018 SAVAGE Alberta WORKMAN Primary SAVAGE [place] WORKMAN [place] [address] [facility] [id number] Hospital 86826Qsr: (330) PLANPolicy Number: Repository [phone] () [id number] Date:4652-57-62AR [address] [address]YF: 04/25/2018 Secondary NOT GIVENUNK [place] Insurance:SELF PAY [facility] Number: Effective Repository Date:2018-04-23 04/17/2018 SAVAGE [place] WORKMAN Primary S[place]AGE [place] WORKSALLY [place] [address] Insurance:[place] IIDOB: [facility] [id number] Hospital 514[address]Grs: (330) PLANPolicy Number: Repository [phone] () [id number] Date:0257-69-29YS [address] [address]TL: 04/17/2018 Secondary NOT GIVENUNK [place] Insurance:SELF PAY [facility] Number: Effective Repository Date:2018-04-17 04/17/2018 SAVAGE [place] WORKMAN Primary SAVAGE [place] WORKMAN [place] [address] Insurance:[place] IIDOB: [facility] [id number] Hospital 29190Iea: (330) PLANPolicy Number: Repository [phone] () [id number] Date:1121-00-32BQ [address] [address]EO: 04/17/2018 Secondary NOT GIVENUNK [place] Insurance:SELF PAY [facility] Hospital Number: Effective Repository Date:2018-04-12 04/17/2018 SAVAGE T WORKMAN Primary SAVAGE T WORKMAN [place] [address] Insurance:[place] IIDOB: [facility] [id number] Hospital 03667Ldb: (330) PLANPolicy Number: Repository [phone] () [id number] Date:8089-24-11ZA [address] [place] [address] [place] [address]GO: 04/17/2018 Secondary NOT GIVENUNK [place] Insurance:SELF PAY [facility] Hospital Number: Effective Repository Date:2018-04-17 04/12/2018 SAVAGE T WORKMAN Primary SAVAGE T WORKMAN [place] [address] Insurance:[place] IIDOB: [facility] [id number] [place] [address]Tel: (330) PLANPolicy Number: Repository [phone] () [id number] Date:4981-96-20PS [address] [place] [address] 12350NB: 04/12/2018 Secondary NOT GIVENUNK [place] Insurance:SELF PAY [facility] Hospital Number: Effective Repository Date:2018-04-12 03/01/2018 SAVAGE Alberta WORKMAN Primary SAVAGE T WORKMAN [place] [address] Insurance:[place] IIDOB: [facility] [id number] [place] [address]Tel: (330) PLANPolicy Number: Repository [phone] () [id number] Date:4830-06-86IK [address] [place] [address] 97159TA: 03/01/2018 Secondary NOT GIVENUNK [place] Insurance:SELF PAY [facility] Hospital Number: Effective Repository Date:2018-03-01 02/26/2018 SAVAGE T WORKMAN Primary SAVAGE T WORKMAN [place] [address] Insurance:[place] IIDOB: [facility] [id number] Hospital [address]3430Jhz: (330) PLANPolicy Number: Repository [phone] () [id number] Date:0701-53-55KS [address] [place] [address] 788[address]MA: 02/26/2018 Secondary NOT GIVENUNK [place] Insurance:SELF PAY [facility] Hospital Number: Effective Repository Date:2018-02-19 02/22/2018 SAVAGE T WORKMAN Primary SAVAGE T WORKMAN [place] [address] [place] Insurance:[place] IIDOB: [facility] [id number] Hospital 08052Gnh: (330) PLANPolicy Number: Repository [phone] () [id number] Date:6903-58-10AX [address] [place] [address] 47825VI: 02/22/2018 Secondary NOT GIVENUNK [place] Insurance:SELF PAY [facility] Hospital Number: Effective Repository Date:2018-02-22 02/12/2018 YOSELIN T Primary YOSELIN T [place] WORK[address] Insurance:[place] WORKMAN IIDOB: [facility] [id number] PLANPolicy Number: Repository [id number]: 330 [id number] [phone] () Date:5037-18-26OM [address] [place] [address] 88691QL: 02/12/2018 Secondary NOT GIVENUNK [place] Insurance:SELF PAY [facility] Hospital Number: Effective Repository Date:2018-01-01 02/07/2018 YOSELIN T Primary YOSELIN T [place] [address] Insurance:[place] WORKMAN IIDOB: [facility] [id number] PLANPolicy Number: Repository [id number]: 330 [id number] [phone] () Date:4544-32-19IB [address] [place] [address] 75585KE: 02/07/2018 Secondary NOT GIVENUNK [place] Insurance:SELF PAY [facility] Hospital Number: Effective Repository Date:2017-11-02 02/07/2018 YOSELIN T Primary YOSELIN T [place] [address] Insurance:[place] WORKMAN IIDOB: [facility] [id number] PLANPolicy Number: Repository [id number]: (330) [id number] [phone] () Date:2658-47-46TE [facility] [facility] [address]IP: 02/07/2018 Secondary NOT GIVENUNK [place] Insurance:SELF PAY [facility] Hospital Number: Effective Repository Date:2018-02-01 02/07/2018 SAVAGE T WORKMAN Primary SAVAGE T WORKMAN [place] [address] [facility] [id number] Hospital 74780Rqw: (330) PLANPolicy Number: Repository [phone] () [id number] Date:0061-99-77WP [address] [place] [address] [place] [address]SG: 02/07/2018 Secondary NOT GIVENUNK [place] Insurance:SELF PAY [facility] Hospital Number: Effective Repository Date:2018-02-07 02/07/2018 SAVAGE T WORKMAN Primary SAVAGE T WORKMAN [place] [address] Insurance:[place] IIDOB: [facility] [id number] Hospital 75124Doq: (330) PLANPolicy Number: Repository [phone] () [id number] Date:7239-84-15BZ [address] [place] [address] [place] [address]CG: 02/07/2018 Secondary NOT GIVENUNK [place] Insurance:SELF PAY [facility] Hospital Number: Effective Repository Date:2018-02-07 02/06/2018 SAVAGE T WORKMAN Primary SAVAGE T WORKSALLY [place] [address] Insurance:[place] IIDOB: [facility] [id number] Hospital 16750Okq: (330) PLANPolicy Number: Repository [phone] () [id number] Date:7156-46-08VE [address] [place] [address] [place] [address]FP: 02/06/2018 Secondary NOT GIVENUNK [place] Insurance:SELF PAY [facility] Hospital Number: Effective Repository Date:2018-01-01 02/06/2018 SAVAGE [place] WORKMAN Primary S[place]AGE [place] WORKMAN [place] [address] Insurance:[place] IIDOB: [facility] [id number] Hospital 02195Eki: (330) PLANPolicy Number: Repository [phone] () [id number] Date:1528-71-27FA [address] [place] [address] 53799WY: 02/06/2018 Secondary NOT GIVENUNK [place] Insurance:SELF PAY [facility] Hospital Number: Effective Repository Date:2018-02-06 01/29/2018 SAVAGE [place] WORKMAN Primary SAVAGE [place] WORKSALLY [place] [address] [facility] [id number] [place] [address]Tel: (330) PLANPolicy Number: Repository [phone] () [id number] Date:8429-19-16MW [address] [place] [address] 31910ZU: 01/29/2018 Secondary NOT GIVENUNK [place] Insurance:SELF PAY [facility] Hospital Number: Effective Repository Date:2018-01-01 01/01/2018 SAVAGE Pinzon WORKMAN Primary SAVGAE [place] WORKSALLY [place] [address] Insurance:[place] IIDOB: [facility] [id number] [place] [address]Tel: (330) PLANPolicy Number: Repository [phone] () [id number] Date:9474-84-33KD [address] [place] [address] 05795VD: 01/01/2018 Secondary NOT GIVENUNK [place] Insurance:SELF PAY [facility] Hospital Number: Effective Repository Date:2017-11-02 12/27/2017 SAVAGE T WORKMAN Primary SAVAGE [place] WORKSALLY [place] [address] Insurance:[place] IIDOB: [facility] [id number] Hospital [address]Nwi: 330 PLANPolicy Number: Repository [phone] () [id number] Date:6148-48-16QG [address] [facility]H [address]SU: 12/27/2017 Secondary NOT GIVENUNK [place] Insurance:SELF PAY [facility] Number: Effective Repository Date:2017-12-27
== END 2018-12-13 10:40 | disposition home or self-care (01) ==
LOC: ED 09:48
PROVIDERS: Emergency Provider Emergency Medicine; Family Provider Family Medicine; PCP Family Medicine
DX: M79.671 Pain in right foot (principal); I25.10 Atherosclerotic heart disease of native coronary artery without angina pectoris; I10 Essential (primary) hypertension; E78.00 Pure hypercholesterolemia, unspecified; G25.81 Restless legs syndrome; G47.33 Obstructive sleep apnea (adult) (pediatric); Z95.1 Presence of aortocoronary bypass graft; Z79.82 Long term (current) use of aspirin; Z79.02 Long term (current) use of antithrombotics/antiplatelets; Z79.899 Other long term (current) drug therapy; Z72.0 Tobacco use
CPT/HCPCS: 73630; 99283

== ENCOUNTER 2019-02-28 08:20 | Emergency (ER) | payer MEDICAID, SELFPAY ==
[2017-01-11 12:02] VITALS: BMI 32.8
[2019-02-28 08:21] VITALS: BP 163/91; PULSE 80; RESP 16; TEMP 36.7; O2SAT 95; BMI 37.4
--- NOTE | 2019-02-28 08:37 | RAD_ITS ---
STUDY: X-RAY CHEST REASON FOR EXAM: Male, 58 years old. 4 day history of cold symptoms. TECHNIQUE: PA and lateral views of the chest. COMPARISON: Comparison is made with prior study dated April 12, 2018. FINDINGS: The lungs are clear and expanded. There is no demonstrated pleural abnormality. Sternal cerclage wires and vascular clips are present from a prior sternotomy and coronary artery bypass graft procedure (CABG). Normal mediastinum and kenna. Normal visualized pulmonary arteries. There is atherosclerotic calcification of the aortic arch with tortuosity. There are diffuse degenerative changes of the visualized thoracic spine. Normal visualized ribs, clavicles, and shoulders. There is no demonstrated abnormality of the visualized soft tissue structures of the upper abdomen. RAD/Chest PA and Lateral IMPRESSION: Prior CABG. The lungs are clear. Electronically Signed: Jake Oquendo, at 10:14 EDT , Service support ,
--- NOTE | 2019-02-28 08:38 | ED.VISSUMM ---
- ER Visit Summary Date of Service: 02/28/19 Chief Complaint: Cough History of Present Illness: The patient is a [address] Gay suarez. He reports that he has a cough that began 2 days ago. It is nonproductive. He has had subjective fever and chills. He also complains of sinus congestion. No sore throat. No shortness of breath. Has been nauseated, but has not vomited. He denies any other complaints. Physical Examination: Vitals: Stable. Afebrile. General: Well-nourished and well-developed. Head: Normocephalic atraumatic. Neck: Supple, no lymphadenopathy. No JVD. Nontender. Cardiovascular: Regular rate and rhythm. No murmurs. Respiratory: No respiratory distress. Clear to auscultation bilaterally. Abdominal: Soft, nontender, nondistended, normal bowel sounds. No guarding, rebound, or peritoneal signs. Back: Nontender. Extremities: Nontender, no edema. Skin: Normal color, no rash. Neurologic: Alert and oriented ?3. Cranial nerves II through XII are intact. Normal strength and sensation. Psych: Normal affect. Test Results: Chest x-ray shows chronic changes. No infiltrate. Influenza is negative. Emergency Department Course and Treatment: Patient is resting comfortably. He refused nausea medication. Treatment Plan: Patient will be discharged with symptomatic care for his URI. Given a prescription for Tessalon Perles. Follow-up his primary care physician 1 week if not improving. Return to the emergency department for any worsening symptoms. Disposition: To home in improved and stable condition. Impression: 1. URI. This note was generated with [employer] dictation software. It may contain incorrect words, spelling, and punctuation that were not noted in review of the chart prior to signing ED Disposition - Plan for ED Patient: Instructions: ED Upper Resp Infec No Abx Tx Prescriptions: Benzonatate [Tessalon Perle] 200 mg PO TID PRN PRN #20 capsule PRN Reason: Cough Referrals: Nelson Boone MD [Primary Care Provider] - 1 Week if not improving
[2019-02-28 10:23] VITALS: PULSE 80; RESP 18; O2SAT 97
== END 2019-02-28 10:24 | disposition home or self-care (01) ==
LOC: ED 08:39
PROVIDERS: Emergency Provider Emergency Medicine; Family Provider Family Medicine; PCP Family Medicine
DX: J06.9 Acute upper respiratory infection, unspecified (principal); I25.10 Atherosclerotic heart disease of native coronary artery without angina pectoris; I10 Essential (primary) hypertension; Z95.1 Presence of aortocoronary bypass graft; Z79.82 Long term (current) use of aspirin; Z79.899 Other long term (current) drug therapy; Z72.0 Tobacco use
CPT/HCPCS: 71046; 87804; 99282

== ENCOUNTER → 2019-04-22 | Outpatient (CLI) | payer MEDICAID, SELFPAY ==
[2017-01-11 12:02] VITALS: BMI 32.8
[2018-11-22 10:11] VITALS: BMI 36.6
--- NOTE | 2019-04-22 15:55 | PFTCOMP ---
COMPLETE PULMONARY FUNCTION TEST INTERPRETATION Brief HPI: Patient is a 58 year old male, currently under the care of Nahomy Pino, who presents to [facility] for complete pulmonary function tests secondary to diagnosis of dyspnea. Respiratory therapist reports good effort and reproducible results. Interpretation: Forced expiration spirometry shows a mild large airways obstructive ventilatory defect with an FEV1 of 77% predicted. There is no significant bronchodilator response by strict ATS criteria. Spirograms are of good quality and plateau slowly, indicating slowly emptying areas of the lungs. The respiratory flow volume loop shows decreased expiratory flow rates at all lung volumes consistent with airway obstruction. Lung volumes by body plethysmography show a normal total lung capacity at 5.83 L, 93% predicted. All other lung volumes are within normal limits. Diffusion capacity by carbon monoxide is decreased at 65% predicted. The airway resistance is normal. Compared to previous pulmonary function tests from 02/07/2018, there has been no significant change. Impression: Irreversible mild large airways obstructive ventilatory defect with a symmetric reduction diffusion capacity, and a pattern consistent with COPD.
== END | disposition home or self-care (01) ==
LOC: PSN 11:00
PROVIDERS: Family Provider Family Medicine; PCP Family Medicine; Referring Provider Nurse Practitioner Acute Care; Visit Provider Nurse Practitioner Acute Care
DX: R06.09 Other forms of dyspnea (principal)
CPT/HCPCS: 94060; 94726; 94729

== ENCOUNTER → 2019-04-23 | Outpatient (CLI) | payer MEDICAID, SELFPAY ==
[2017-01-11 12:02] VITALS: BMI 32.8
[2018-11-22 10:11] VITALS: BMI 36.6
[2019-04-23 11:39] VITALS: PULSE 101; PULSE 106; PULSE 108; PULSE 109; PULSE 76; PULSE 80; PULSE 99; O2SAT 92; O2SAT 93; O2SAT 94; O2SAT 96
--- NOTE | 2019-04-23 14:11 | PCM.PSN.6M ---
PSN 6 Minute Walk Test - 6 Minute Walk Test 6 Minute Walk Test: 6 Minute Walk Test PSN:6-Minute Walk Test Start: 04/23/19 11:38 Freq: Status: Active Protocol: RESP.6MINW Document 04/23/19 11:39 RUPERTO (Rec: 04/23/19 11:44 RUPERTO [id number]) 6 Minute Walk Test Date Performed 04/23/19 Time Performed 11:15 Height 5 ft 8 in Weight: 113.398 kg Weight in Pounds 250.[address]: Valdo Jha Assistive device used: None Pre-test Oxygen Delivery Method Room Air Pulse Ox (%) 96 Pulse Rate (60-100 beats/min) 76 Dyspnea Matthias Scale (0-10) 0.5 Exertion Matthias Scale (6-20) 6 1st minute Oxygen Delivery Method Room Air Pulse Ox (%) 94 Pulse Rate (60-100 beats/min) 99 2nd minute Oxygen Delivery Method Room Air Pulse Ox (%) 92 Pulse Rate (60-100 beats/min) 101 H 3rd minute Oxygen Delivery Method Room Air Pulse Ox (%) 92 Pulse Rate (60-100 beats/min) 106 H 4th minute Oxygen Delivery Method Room Air Pulse Ox (%) 93 Pulse Rate (60-100 beats/min) 108 H 5th minute Oxygen Delivery Method Room Air Pulse Ox (%) 93 Pulse Rate (60-100 beats/min) 109 H 6th minute Oxygen Delivery Method Room Air Pulse Ox (%) 94 Pulse Rate (60-100 beats/min) 109 H Dyspnea Matthias Scale (0-10) 4 Exertion Matthias Scale (6-20) 12 Post-test Oxygen Delivery Method Room Air Pulse Ox (%) 96 Pulse Rate (60-100 beats/min) 80 Full Laps Walked 20 Partial Lap, Number of Tiles Walked 9 Total Distance Walked (ft) 1189 - Interpretation Interpretation: The patient was able to ambulate 1189 feet over the course of 6 minutes on room air with no assistive devices or breaks. The patient did experience significant desaturation as low was 92% with reflexive tachycardia. These findings are consistent with a respiratory limitation exercise tolerance. - Recommendations Recommendations: No supplemental oxygen is indicated at this time.
== END | disposition home or self-care (01) ==
LOC: PSN 10:55
PROVIDERS: Family Provider Family Medicine; PCP Family Medicine; Referring Provider Nurse Practitioner Acute Care; Visit Provider Nurse Practitioner Acute Care
DX: R06.09 Other forms of dyspnea (principal)
CPT/HCPCS: 94618

== ENCOUNTER → 2019-07-17 | Outpatient (CLI) | payer MEDICAID, SELFPAY ==
[2017-01-11 12:02] VITALS: BMI 32.8
[2019-07-01 10:54] VITALS: BMI 37.4
--- NOTE | 2019-07-17 07:48 | CT_ITS ---
STUDY: LOW DOSE CT LUNG CANCER SCREENING REASON FOR EXAM: Male, 58 years old. Tobacco dependence, shortness of breath with exertion, 40 year smoker one pack per day, history of hypertension, coronary artery disease, CABG, stents RADIATION DOSAGE (If Supplied By Facility): DLP = ( 115.71 ) mGycm Individualized dose optimization techniques were used for this CT. TECHNIQUE: No contrast was administered. Low dose technique was utilized (average mAS-38 and kVp 120). Thin slice transaxial CT imaging of the chest. Nodule measured using lung windows on PACS and/or independent workstation with automated measurement of minimum and maximum diameter. Nodule measurement reported as average diameter rounded to the nearest whole number. Growth is defined as an increase ins size of greater than 1.5 mm. COMPARISON: CTA chest 10/02/2017, 07/25/2017 FINDINGS: Total lung nodules (excluding granulomas): None. Emphysema: Generalized hyperlucency of the lungs, minimal features of centrilobular emphysema at the apices. Endobronchial lesion: None Aorta: Mild nonaneurysmal ectasia of the ascending aorta and proximal arch 3.5 cm. Mild arch atherosclerosis. Coronary arteries: Multivessel coronary calcifications with apparent stent proximal RCA. Heart: No cardiomegaly or pericardial effusion. Pulmonary artery: Nondilated. Mediastinal nodes: None. Other chest and abdominal findings: Upper abdomen, body wall soft tissues, supraclavicular soft tissues, osseous structures exhibit no acute process. Median sternotomy. CABG. CT/Low Dose CT Lung Screening IMPRESSION: Prominent coronary atherosclerosis, median sternotomy and CABG. No pulmonary nodules. Features of COPD/emphysema. ACR lung RADS category 1. Negative. Continue annual screening with low dose CT chest. IMPORTANT NOTES FOR USE: ACR Lung-RADS Version 1.0 Assessment Categories Release Date: March 23, 2014 Category: Coded 0-4 bases on nodule(s) with highest degree of suspicion. Negative screen is defined as categories 1 and 2; a positive screen is defined as categories 3 and 4. Category 3 and 4A nodules that are unchanged on interval CT should be coded as category 2, and individuals returned to screening in 12 months. Category 4X: Category 3 or 4 nodules with additional imaging findings that increase the suspicion of lung cancer, such as spiculation, GGN that doubles in size in 1 year, enlarged lymph notes, etc. Category Modifiers: S (significant finding unrelated to lung cancer) and C (prior history of treated lung cancer) may be added to the 0-4 Lung-RADS Electronically Signed: Emmett Wright MD at 8:46 EDT Tel , Service support ,
== END | disposition home or self-care (01) ==
LOC: CT 07:48
PROVIDERS: Family Provider Family Medicine; PCP Family Medicine; Referring Provider Nurse Practitioner Acute Care; Visit Provider Nurse Practitioner Acute Care
DX: F17.200 Nicotine dependence, unspecified, uncomplicated (principal)
CPT/HCPCS: G0297

== ENCOUNTER → 2019-12-09 10:14 | Outpatient (CLI) | payer MEDICAID, SELFPAY ==
[2017-01-11 12:02] VITALS: BMI 32.8
[2019-10-09 08:44] VITALS: BMI 37.8
== END ==
PROVIDERS: Family Provider Family Medicine; PCP Family Medicine; Referring Provider Podiatrist Foot & Ankle Surgery; Visit Provider Podiatrist Foot & Ankle Surgery
DX: L97.511 Non-pressure chronic ulcer of other part of right foot limited to breakdown of skin (principal)
CPT/HCPCS: 87070; 87075; 87101; 87186; 87205

== ENCOUNTER → 2019-12-23 10:37 | Outpatient (CLI) | payer MEDICAID, SELFPAY ==
[2017-01-11 12:02] VITALS: BMI 32.8
[2019-10-09 08:44] VITALS: BMI 37.8
== END ==
PROVIDERS: PCP Family Medicine; Referring Provider Podiatrist Foot & Ankle Surgery; Visit Provider Podiatrist Foot & Ankle Surgery
DX: L03.115 Cellulitis of right lower limb (principal)
CPT/HCPCS: 87015; 87070; 87101; 87116; 87205; 87206

== ENCOUNTER 2020-01-13 14:37 | Emergency (ER) | payer MEDICAID, SELFPAY ==
[2017-01-11 12:02] VITALS: BMI 32.8
[2019-10-09 08:44] VITALS: BMI 37.8
[2020-01-13 14:39] VITALS: BP 147/77; PULSE 89; RESP 18; TEMP 36.6; O2SAT 97; BMI 36.5
--- NOTE | 2020-01-13 14:59 | RAD_ITS ---
STUDY: X-RAY - LEFT FOOT CLINICAL: Male, 59 years old. PAIN AND SWELLING TO 1ST AND SECOND TOE AREA, NO INJURY TECHNIQUE: 3 view(s) of the foot. COMPARISON: Comparison is made with prior examination of August 22, 2011. FINDINGS: Normal talus, calcaneus, and tarsal bones. Normal visualized subtalar, talonavicular, calcaneocuboid, tarsal and tarsometatarsal articulations. Normal metatarsi. There is degenerative arthrosis of the metatarsophalangeal joint of the hallux with a hallux valgus deformity. Normal tibial and fibular sesamoid bones. Normal interphalangeal joint of the great toe. Normal phalanges of the great toe. Normal second through fifth metatarsophalangeal joints. Normal interphalangeal joints and phalanges of the lesser toes. Diffuse tissue swelling. RAD/Foot min 3 Views IMPRESSION: Diffuse soft tissue swelling. Degenerative changes at the first metatarsophalangeal joint with degenerative changes. Electronically Signed: Jake Oquendo, at 15:48 EST , Service support ,
--- NOTE | 2020-01-13 15:10 | ED.DCSUM_ITS ---
- ER Visit Summary Date of Service: 01/13/20 Chief Complaint: Left foot redness History of Present Illness: The patient is a 59 M who presents with redness to his left foot that has been getting worse over the past 5 days. Patient states it is gradually gotten worse. Patient describes his pain as aching. Patient states pain is worse with ambulation. Patient denies any paresthesias or weakness. Patient denies any trauma or injury. Patient denies any fevers or chills. Physical Examination: Vital signs are stable. Patient is afebrile. Patient is in no acute distress. Skin is warm and dry. There is erythema and warmth over the first MTP joint of the left foot. There is also mild edema and erythema that extends over the second through fourth MTP joints. There is no effusion. There is no fluctuance. Range of motion was limited in flexion and extension of the MTP joint of the left foot. Sensation was intact light touch in all digits. Capillary refill is less than 2 seconds in all digits there is no bony crepitance or step-off. Test Results: CBC and basic metabolic profile were obtained and were essentially within normal limits. X-ray of the left foot was obtained. There was soft tissue swelling and degenerative changes of the first metatarsal phalangeal joint. There is no acute abnormality. Emergency Department Course and Treatment: Patient was advised of his findings. Patient was advised that this could be cellulitis of his left foot. It could also be gout since there is some redness and swelling but that is worse over the first MTP joint. Patient was given a prescription for Keflex. Patient was given a prescription for Naprosyn. Patient was instructed to ice and elevate the left foot. Patient was instructed to follow-up with his primary care physician in 5 to 7 days. Patient understood and was agreeable with the plan. All questions were answered. Disposition: Discharge home Impression: Cellulitis left foot This note was generated with [employer] dictation software. It may contain incorrect words, spelling, and punctuation that were not noted in review of the chart prior to signing ED Disposition - Plan for ED Patient: Disposition: Home or Assisted Living Diagnosis: Cellulitis of left foot Diagnosis: (Ruled Out): Cellulitis and abscess of foot Instructions: Cellulitis, Gouty Arthritis Prescriptions: Cephalexin [Keflex] 500 mg PO Q6 #40 cap Prescription Printed Ibuprofen [Motrin] 800 mg PO TID PRN PRN #20 tab PRN Reason: Pain Score 1-10/ Prescription Printed Referrals: Nelson Boone MD [Primary Care Provider] - 3-5 Days
[2020-01-13 15:18] LABS: Absolute Lymphocyte Count 1.54 X10^3/uL (0.83-4.51); Absolute Neutrophil Count 6.7 X10^3/uL (2.0-7.7); Basophil# 0.04 X10^3/uL; Basophil% 0.4 % (0-1); Eosinophils% 1.1 % (0-5); Hematocrit 39.6 % (40-54); Hemoglobin 13.6 g/dL (13.0-16.5); Lymphocyte # 1.54 X10^3/ul (4.0); Lymphocyte % 16.5 % (19-41); Mean Corp Hgb Conc 34.3 g/dL (32-36); Mean Corpuscular Hgb 33.9 pg (27.0-32.0); Mean Corpuscular Volume 98.8 fL (80-94); Mean Platelet Vol. 8.9 fl (6.2-12.0); Monocyte# 0.85 X10^3/uL; Monocyte% 9.1 % (0-10); NRBC Flagged by Analyzer 0 % (0-5); Neutrophil # 6.74 X10^3/uL (2.7-7.7); Neutrophil % 72.4 % (47-70); Platelet Count 187 K/mm3 (150-450); RBC Distribution Width CV 13.1 % (11.6-14.6); RBC Distribution Width SD 47.8 fl (35.1-43.9); Red Blood Count 4.01 M/mm3 (4.6-6.2); White Blood Count 9.3 K/mm3 (4.4-11.0)
[2020-01-13 15:31] LABS: Anion Gap 10 (5-15); BUN 14 mg/dL (7-18); BUN/Creat Ratio 15.5 RATIO (10-20); Calcium,Total 8.7 mg/dL (8.5-10.1); Chloride 106 mmol/L (98-107); EST Glomerular Filtration Rate 92 mL/min (>60); Est Glom Filt Rate - Afr Amer 112 mL/min (>60); Estimated Creatinine Clearance 87.61 ml/min; Glucose 90 mg/dL (74-106); Potassium 4.1 mmol/L (3.5-5.1); Sodium Level 137 mmol/L (136-145)
[2020-01-13 16:31] VITALS: BP 135/84; PULSE 82; RESP 16; O2SAT 93
--- NOTE | 2020-01-13 16:32 | ED.RN ---
REVIEWED D/C INSTRUCTIONS, FOLLOW UP CARE, PRESCRIPTIONS, AND S/S THAT WOULD WARRANT A RETURN TO THE ED WITH PT. PT VERBALIZED AN UNDERSTANDING AND DENIES FURTHER QUESTIONS FOR THIS RN. PT SKIN P/W/D, RESP EVEN AND UNLABORED, PT A&O X 3, NO DISTRESS NOTED. PT AMBULATED OUT OF ED, GAIT STEADY.
== END 2020-01-13 16:34 | disposition home or self-care (01) ==
PROVIDERS: Emergency Provider Emergency Medicine; PCP Family Medicine
DX: L03.116 Cellulitis of left lower limb (principal); R06.00 Dyspnea, unspecified; M54.9 Dorsalgia, unspecified; I10 Essential (primary) hypertension; I25.10 Atherosclerotic heart disease of native coronary artery without angina pectoris; E78.00 Pure hypercholesterolemia, unspecified; Z95.1 Presence of aortocoronary bypass graft; Z79.82 Long term (current) use of aspirin; Z79.899 Other long term (current) drug therapy; Z72.0 Tobacco use
CPT/HCPCS: 73630; 80048; 85025; 99283; A4216

== ENCOUNTER → 2020-06-23 08:28 | Outpatient (CLI) | payer MEDICAID, SELFPAY ==
[2017-01-11 12:02] VITALS: BMI 32.8
[2020-04-08 10:58] VITALS: BMI 36.5
--- NOTE | 2020-06-23 08:29 | CT_ITS ---
STUDY: LOW DOSE CT LUNG CANCER SCREENING REASON FOR EXAM: Male, 59 years old. 1PPD X 41 YEARS. COPD. HEART STENT RADIATION DOSAGE (If Supplied By Facility): CTDIvol = ( 4.02 ) mGy, DLP = ( 145.47 ) mGycm TECHNIQUE: No contrast was administered. Low dose technique was utilized (average mAS-38 and kVp 120). 1.25 mm axial source images with a slice interval of 1.25-mm were reconstructed in lung windows. 2.5 mm axial source images with a slice interval of 2.5-mm were reconstructed in lung windows. 5.0 mm axial source images with a slice interval of 5.0-mm were reconstructed in soft tissue windows. Nodule measured using lung windows on PACS and/or independent workstation with automated measurement of minimum and maximum diameter. Nodule measurement reported as average diameter rounded to the nearest whole number. Growth is defined as an increase ins size of greater than 1.5 mm. COMPARISON: Comparison is made with prior study dated 07/17/2019. NODULES: None. Emphysema: Stable mild emphysematous changes. Endobronchial lesion: None. Aorta: Minimal ectasia of the descending thoracic aorta. Coronary arteries: Coronary artery calcifications. CT/Low Dose CT Lung Screening IMPRESSION: Lung-RADS category 2 - Continue annual screening with LDCT in 12 months. IMPORTANT NOTES FOR USE: ACR Lung-RADS Version 1.0 Assessment Categories Release Date: March 23, 2014 Category: Coded 0-4 bases on nodule(s) with highest degree of suspicion. Negative screen is defined as categories 1 and 2; a positive screen is defined as categories 3 and 4. Category 3 and 4A nodules that are unchanged on interval CT should be coded as category 2, and individuals returned to screening in 12 months. Category 4X: Category 3 or 4 nodules with additional imaging findings that increase the suspicion of lung cancer, such as spiculation, GGN that doubles in size in 1 year, enlarged lymph notes, etc. Category Modifiers: S (significant finding unrelated to lung cancer) and C (prior history of treated lung cancer) may be added to the 0-4 Lung-RADS Electronically Signed: Jake Oquendo, at 13:13 EDT , Service support ,
== END ==
PROVIDERS: PCP Family Medicine; Referring Provider Internal Medicine Critical Care Medicine; Visit Provider Internal Medicine Critical Care Medicine
DX: F17.210 Nicotine dependence, cigarettes, uncomplicated (principal)
CPT/HCPCS: G0297

== ENCOUNTER 2021-04-17 11:24 | Emergency (ER) | payer MEDICAID, SELFPAY ==
[2017-01-11 12:02] VITALS: BMI 32.8
[2020-09-23 11:03] VITALS: BMI 36.5
[2021-04-17 11:25] VITALS: BP 132/68; PULSE 84; RESP 16; TEMP 36.3; O2SAT 96; BMI 35.4
--- NOTE | 2021-04-17 11:49 | RAD_ITS ---
EXAM: XR RIGHT SHOULDER COMPLETE, 2 OR MORE VIEWS CLINICAL INDICATION: Pain. TECHNIQUE: Two or more views of the right shoulder. This report was created using [employer] report generation technology. COMPARISON: None. FINDINGS: BONES/JOINTS: Unremarkable. No acute fracture. No subluxation. Normal alignment. Preservation of the joint space. No sclerotic or destructive changes observed. SOFT TISSUES: Unremarkable. No soft tissue swelling or gas. No radiopaque foreign body. RAD/Shoulder min 2 Views IMPRESSION: Negative right shoulder x-rays. Electronically Signed: Hira Barr MD at 12:39 EDT , Service support ,
--- NOTE | 2021-04-17 12:04 | EX.ED.UPPERE ---
HPI History of Present Illness Chief Complaint: Upper Extremity Injury Informant: patient Narrative Narrative: 60-year-old male presents with 1 week of right shoulder pain. He notes limited range of motion. He denies any distal symptoms. He denies any known direct trauma. States he had a similar problem with tendinitis of the left shoulder in the past. [facility] Medical History (Updated 04/17/21 @ 12:[address] 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 Hyperlipidemia Hypertension Obesity Home Medications nitroglycerin 0.4 mg sublingual tablet 0.4 mg SUBLINGUAL Q5M PRN #25 tab 04/11/18 [Rx Last Taken Unknown] Automatic Blood Pressure Machine #1 ea 04/12/18 [Rx Last Taken Unknown] furosemide 40 mg tablet 40 mg PO QDAY #30 tab 04/12/18 [Rx Last Taken Unknown] isosorbide mononitrate 150 mg PO DAILY 04/16/18 [History Last Taken Unknown] Disability Placard #1 ea 07/19/18 [Rx Last Taken Unknown] carvedilol 12.5 mg PO BID 12/13/18 [History Last Taken Unknown] atorvastatin 80 mg tablet 80 mg PO QHS #30 tab 12/24/18 [Rx Last Taken Unknown] amlodipine 5 mg PO DAILY 02/28/19 [History Last Taken Unknown] aspirin 325 mg PO DAILY 02/28/19 [History Last Taken Unknown] benzonatate 200 mg PO TID PRN PRN #20 cap 02/28/19 [Rx Last Taken Unknown] clopidogrel 75 mg PO DAILY 02/28/19 [History Last Taken Unknown] ezetimibe 10 mg PO DAILY 02/28/19 [History Last Taken Unknown] albuterol sulfate 2.5 mg INHALATION Q4H PRN #180 ml 07/01/19 [Rx Last Taken Unknown] nhp-EZ-lfxdtpmlt-carbetapentane 5 mg-10 mg-10 mg-60 mg tablet tab PO tab 10/09/19 [History Last Taken Unknown] cephalexin 500 mg PO Q6 #40 cap 01/13/20 [Rx Last Taken Unknown] ibuprofen 800 mg PO TID PRN PRN #20 tab 01/13/20 [Rx Last Taken Unknown] losartan 50 mg PO BID 01/13/20 [History Last Taken Unknown] ranolazine 500 mg PO BID 01/13/20 [History Last Taken Unknown] sulfamethoxazole-trimethoprim 1 tab PO BID 01/13/20 [History Last Taken Unknown] albuterol sulfate 90 mcg/actuation aerosol inhaler 2 puff INHALATION Q4H PRN #8.5 g 09/23/20 [Rx Last Taken Unknown] budesonide-formoterol HFA 160 mcg-4.5 mcg/actuation aerosol inhaler 2 puff INHALATION BID #1 ea 09/23/20 [Rx Last Taken Unknown] umeclidinium 62.5 mcg/actuation blister powder for inhalation 1 inh INHALATION QDAY #30 ea 09/23/20 [Rx Last Taken Unknown] ropinirole 2 mg tablet 2 mg PO QHS #30 tab 12/13/20 [Rx Last Taken Unknown] hydrocodone-acetaminophen 1 tab PO Q6H PRN PRN 3 Days #12 tablet 04/17/21 [Rx Last Taken Unknown] naproxen 500 mg PO BID #14 tab 04/17/21 [Rx Last Taken Unknown] prednisone 60 mg PO DAILY #15 tablet 04/17/21 [Rx Last Taken Unknown] Allergy/AdvReac Type Severity Reaction Status Date / Time No Known Allergies Allergy Verified 09/23/20 11:04 Family History Father Heart disease Mother CVA (cerebral vascular accident) Surgical History History of left heart catheterization (04/17/18) Presence of aortocoronary bypass graft (~01/15/17) Social History Smoking Status: Current every day smoker Tobacco: How many years used: 38 second hand exposure: Yes alcohol intake: current alcohol intake frequency: a few times a week Alcohol type: beer substance use type: does not use caffeine: No what type of physical activity do you participate in: other details: cardiac rehab frequency: 3-4 times per week ROS ROS ED Constitutional Constitutional ED: Denies chills or weight loss Eyes Eyes: Denies change in vision or diplopia ENT ENT ED: Denies ear pain, rhinorrhea or sore throat Cardiovascular Cardiovascular: Denies chest pain, orthopnea, palpitations or racing heartbeat Respiratory/Chest Respiratory/Chest: Denies cough, dyspnea or orthopnea Gastrointestinal Gastrointestinal: Denies abdominal pain, diarrhea, nausea or vomiting Genitourinary Genitourinary ED: Denies dysuria, hematuria or urinary frequency Musculoskeletal Musculoskeletal: Reports other Details: Right shoulder pain ; Denies arthralgias or myalgias Integumentary Denies abscess or rash Neurologic Neurologic: Denies headache(s) or weakness Psychiatric Psychiatric: Denies anxiety, depression, suicidal ideation or suicidal thoughts Endocrine Endocrinology: Denies polydipsia, polyphagia or polyuria Allergic/Immunologic Allergic/Immunologic ED: Denies mouth swelling, tongue swelling or urticaria EXAM Physical Exam Const Vital Signs: 04/17/21 11:25 Temperature 97.4 F L Temperature Source Temporal Pulse Rate 84 Respiratory Rate 16 Blood Pressure 132/68 H Blood Pressure Mean 89 Pulse Ox 96 Oxygen Delivery Method Room Air Positive well nourished and well developed General Appearance ED: well developed HEENT Reports normocephalic, head/scalp atraumatic and moist mucous membranes Eyes PERRL and EOMs intact bilaterally Neck no lymphadenopathy, supple and no JVD Resp normal respiratory effort and clear to auscultation bilaterally Cardio regular rate, regular rhythm and no murmurs GI normal to inspection, nondistended, normoactive bowel sounds and non-tender Palpation: soft Back/Spine no CVA tenderness and normal ROM Extremity Extremity Narrative: Right shoulder shows tenderness over the anterior aspect of the joint. Seems to be along biceps tendon. He has painful abduction. Neurovascular intact distal. General Extremety ED: Negative for edema General Extremity: Negative for edema Neuro oriented x3 and CN's II-XII intact bilaterally Sensorium / Orientation: alert Motor Exam: strength 5/5 throughout Psych mental status grossly normal Mood & Affect: Negative for depressed or tearful Skin no rashes or lesions noted and no wounds MDM MDM MDM Narrative Medical decision making narrative: My interpretation of the plain films of the right shoulder is no fracture. No calcific tendinitis. Patient will be started on a short course of steroids and anti-inflammatories. Would recommend follow-up with orthopedics if not improving Discharge Plan Triage Chief Complaint: Upper Extremity Injury ED Provider: Lj Bueno Dx/Rx/DC Orders Clinical Impression: Right shoulder tendinitis Instructions: ED Tendonitis Prescriptions: New prednisone 20 MG tablet 60 mg PO DAILY Qty: 15 RF: 0 naproxen 500 MG tablet 500 mg PO BID Qty: 14 RF: 0 hydrocodone-acetaminophen [hydrocodone-acetaminophen] 1 TABLET tablet 1 tab PO Q6H PRN PRN (Reason: Pain) 3 Days Qty: 12 RF: 0 No Action (DME) Automatic Blood Pressure Machine Qty: 1 RF: 0 furosemide [Lasix] 40 mg tablet 40 mg PO QDAY Qty: 30 RF: 11 albuterol sulfate 2.5 mg /3 mL (0.083 %) solution for nebulization 2.5 mg INHALATION Q4H PRN (Reason: Sob &/Or Wheezing) Qty: 180 RF: 3 kpy-IY-sqrmnzcrr-carbetapentane 5 mg-10 mg-10 mg-60 mg tablet 5-10-10-60 mg tablet PO RF: 0 albuterol sulfate 90 mcg/actuation HFA aerosol inhaler 2 puff INHALATION Q4H PRN (Reason: shortness of breath or wheezing) Qty: 8.5 RF: 6 Symbicort 160-4.5 mcg/actuation HFA aerosol inhaler 2 puff INHALATION BID Qty: 1 RF: 11 Incruse Ellipta 62.5 mcg/actuation blister with device 1 inh INHALATION QDAY Qty: 30 RF: 11 isosorbide mononitrate 120 MG tablet 150 mg PO DAILY RF: 0 carvedilol 6.25 MG tablet 12.5 mg PO BID RF: 0 amlodipine 5 MG tablet 5 mg PO DAILY RF: 0 ezetimibe 10 MG tablet 10 mg PO DAILY RF: 0 clopidogrel 75 MG tablet 75 mg PO DAILY RF: 0 aspirin 325 MG tablet 325 mg PO DAILY RF: 0 benzonatate 100 MG capsule 200 mg PO TID PRN PRN (Reason: Cough) Qty: 20 RF: 0 losartan 50 MG tablet 50 mg PO BID RF: 0 sulfamethoxazole-trimethoprim 1 TABLET tablet 1 tab PO BID RF: 0 ranolazine 500 MG tablet 500 mg PO BID RF: 0 ibuprofen 800 MG tablet 800 mg PO TID PRN PRN (Reason: Pain Score 1-10/10) Qty: 20 RF: 0 cephalexin 500 MG capsule 500 mg PO Q6 Qty: 40 RF: 0 nitroglycerin 0.4 mg tablet, sublingual 0.4 mg SUBLINGUAL Q5M PRN (Reason: Chest Pain) Qty: 25 RF: 3 (DME) Disability Placard Qty: 1 RF: 0 atorvastatin 80 mg tablet 80 mg PO QHS Qty: 30 RF: 11 ropinirole 2 mg tablet 2 mg PO QHS Qty: 30 RF: 6 Primary Care Provider: Nelson Boone Referrals: Nelson Boone MD [Primary Care Provider] - Hiren Munson DO [STAFF PHYSICIAN] - 1 Week if not improving Activity Restrictions/Additional Instructions: If continued symptoms please follow-up with orthopedist of your choice or the orthopedist referred to you above. If you are not already taking anti-inflammatories please begin the naproxen. If you are only use 1 type of anti-inflammatory. If you start to develop indigestion or increased heartburn please discontinue the anti-inflammatories. Disposition Disposition: Home, self care
== END 2021-04-17 12:31 | disposition home or self-care (01) ==
PROVIDERS: Emergency Provider Emergency Medicine; PCP Family Medicine
DX: M77.8 Other enthesopathies, not elsewhere classified (principal); E66.9 Obesity, unspecified; Z68.35 Body mass index [BMI] 35.0-35.9, adult; I10 Essential (primary) hypertension; E78.5 Hyperlipidemia, unspecified; I25.118 Atherosclerotic heart disease of native coronary artery with other forms of angina pectoris; Z95.1 Presence of aortocoronary bypass graft; Z79.82 Long term (current) use of aspirin; Z79.899 Other long term (current) drug therapy; F17.200 Nicotine dependence, unspecified, uncomplicated
CPT/HCPCS: 73030; 99282

== ENCOUNTER → 2021-06-24 16:20 | Outpatient (CLI) | payer MEDICAID, SELFPAY ==
[2017-01-11 12:02] VITALS: BMI 32.8
--- NOTE | 2021-06-24 16:23 | CT_ITS ---
STUDY: LOW DOSE CT LUNG CANCER SCREENING REASON FOR EXAM: Male, 60 years old. Tobacco Dependency RADIATION DOSAGE (If Supplied By Facility): CTDIvol = ( 4.02 ) mGy, DLP = ( 142.95 ) mGycm TECHNIQUE: No contrast was administered. Low dose technique was utilized (average mAS-38 and kVp 120). 1.25 mm axial source images with a slice interval of 1.25-mm were reconstructed in lung windows. 2.5 mm axial source images with a slice interval of 2.5-mm were reconstructed in lung windows. 5.0 mm axial source images with a slice interval of 5.0-mm were reconstructed in soft tissue windows. Nodule measured using lung windows on PACS and/or independent workstation with automated measurement of minimum and maximum diameter. Nodule measurement reported as average diameter rounded to the nearest whole number. Growth is defined as an increase ins size of greater than 1.5 mm. COMPARISON: 06/23/2020 NODULES: No noncalcified nodules or localized groundglass opacities. Emphysema: A few scattered emphysematous blebs. Endobronchial lesion: None Aorta: Atherosclerosis and tortuosity Coronary arteries: Sternal wires and mediastinal surgical clips compatible with prior CABG. Heart: Normal size Pulmonary artery: Unremarkable for unopacified technique. Mediastinal nodes: No adenopathy Other chest and abdominal findings: None CT/Low Dose CT Lung Screening IMPRESSION: Lung-RADS category 1 - Continue annual screening with LDCT in 12 months. IMPORTANT NOTES FOR USE: ACR Lung-RADS Version 1.1 Assessment Categories Release Date: 2018 Category: Coded 0-4 bases on nodule(s) with highest degree of suspicion. Negative screen is defined as categories 1 and 2; a positive screen is defined as categories 3 and 4. Category 3 and 4A nodules that are unchanged on interval CT should be coded as category 2, and individuals returned to screening in 12 months. Category 4X: Category 3 or 4 nodules with additional imaging findings that increase the suspicion of lung cancer, such as spiculation, GGN that doubles in size in 1 year, enlarged lymph notes, etc. Category Modifiers: S (significant finding unrelated to lung cancer) Electronically Signed: Reese Mcmanus MD ([place]) at 17:20 EDT , Service support ,
== END ==
PROVIDERS: PCP Family Medicine; Referring Provider Internal Medicine Critical Care Medicine; Visit Provider Internal Medicine Critical Care Medicine
DX: F17.210 Nicotine dependence, cigarettes, uncomplicated (principal)
CPT/HCPCS: 71271

== ENCOUNTER 2021-08-14 12:12 | Emergency (ER) | payer MEDICAID, SELFPAY ==
[2017-01-11 12:02] VITALS: BMI 32.8
[2021-08-14 12:13] VITALS: BP 151/82; PULSE 85; RESP 18; TEMP 36.7; O2SAT 96; BMI 34.9
--- NOTE | 2021-08-14 12:52 | EKG12_ITS ---
Test Reason : CP Blood Pressure : / mmHG Vent. Rate : 083 BPM Atrial Rate : 083 BPM P-R Int : 140 ms QRS Dur : 096 ms QT Int : 398 ms P-R-T Axes : 011 107 033 degrees QTc Int : 467 ms Normal sinus rhythm Normal ECG Confirmed by VIRGINIE BRENNER, AUGUSTIN ([id number]), desk editor LONNY PEMBERTON ([id number]) on 08/16/2021 1:45:09 PM Referred By: MARAL/LISA Confirmed By:AUGUSTIN RACHEL MD
--- NOTE | 2021-08-14 12:52 | RAD_ITS ---
History: chest pain EXAMINATION/TECHNIQUE: XR Chest 1 View: Portable COMPARISON: February 28, 2019 FINDINGS: LINES/DEVICES: Sternotomy wires remain in place. LUNGS: No consolidation, edema or effusion. No pneumothorax. MEDIASTINUM AND CARDIOVASCULAR STRUCTURES: Cardiac silhouette not enlarged. Central airways and mediastinal contour are unremarkable. BONES AND SOFT TISSUES: Unremarkable. RAD/Chest 1 View (Portable) IMPRESSION: No radiographic evidence of acute cardiopulmonary disease. No interval change. at 1438 Reported and signed by: Raymundo Trammell MD Electronically Signed: Raymundo Trammell MD at 14:37 EDT Tel , Service support ,
--- NOTE | 2021-08-14 12:53 | EDS_ITS ---
HPI History of Present Illness Chief Complaint: Dizziness Detail of Chief Complaint: near syncope Informant: patient and spouse/S.O. Onset/Context/Timing Onset: Today Context: Sudden Onset Current Severity: Gone Maximum Severity: Mild Narrative Narrative: 17-year-old male history of CAD with one cardiac stent triple bypass in 2014. He is on Plavix and aspirin. He also has a history of COPD. 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 The symptoms have since resolved. He denies any chest pain. He denies any recent vomiting or diarrhea. He denies any melena. Prior similar symptoms: Yes Recent Illness/Hospitalization: No [facility] Medical History (Updated 08/14/21 @ 16:[address] Poncho Cole MD) Abnormal stress test Atherosclerosis of coronary artery of [place] heart without angina pectoris Atherosclerosis of other coronary artery bypass graft(s) with other forms of angina pectoris Hyperlipidemia Hypertension Obesity Home Medications nitroglycerin 0.4 mg sublingual tablet 0.4 mg SUBLINGUAL Q5M PRN #25 tab 04/11/18 [Rx Last Taken Unknown] Automatic Blood Pressure Machine #1 ea 04/12/18 [Rx Last Taken Unknown] furosemide 40 mg tablet 40 mg PO QDAY #30 tab 04/12/18 [Rx Last Taken Unknown] isosorbide mononitrate 150 mg PO DAILY 04/16/18 [History Last Taken Unknown] Disability Placard #1 ea 07/19/18 [Rx Last Taken Unknown] carvedilol 12.5 mg PO BID 12/13/18 [History Last Taken Unknown] atorvastatin 80 mg tablet 80 mg PO QHS #30 tab 12/24/18 [Rx Last Taken Unknown] amlodipine 5 mg PO DAILY 02/28/19 [History Last Taken Unknown] aspirin 325 mg PO DAILY 02/28/19 [History Last Taken Unknown] benzonatate 200 mg PO TID PRN PRN #20 cap 02/28/19 [Rx Last Taken Unknown] clopidogrel 75 mg PO DAILY 02/28/19 [History Last Taken Unknown] ezetimibe 10 mg PO DAILY 02/28/19 [History Last Taken Unknown] albuterol sulfate 2.5 mg INHALATION Q4H PRN #180 ml 07/01/19 [Rx Last Taken Unknown] iec-MX-khamgixze-carbetapentane 5 mg-10 mg-10 mg-60 mg tablet tab PO tab 10/09/19 [History Last Taken Unknown] cephalexin 500 mg PO Q6 #40 cap 01/13/20 [Rx Last Taken Unknown] ibuprofen 800 mg PO TID PRN PRN #20 tab 01/13/20 [Rx Last Taken Unknown] losartan 50 mg PO BID 01/13/20 [History Last Taken Unknown] ranolazine 500 mg PO BID 01/13/20 [History Last Taken Unknown] sulfamethoxazole-trimethoprim 1 tab PO BID 01/13/20 [History Last Taken Unknown] albuterol sulfate 90 mcg/actuation aerosol inhaler 2 puff INHALATION Q4H PRN #8.5 g 09/23/20 [Rx Last Taken Unknown] budesonide-formoterol HFA 160 mcg-4.5 mcg/actuation aerosol inhaler 2 puff INHALATION BID #1 ea 09/23/20 [Rx Last Taken Unknown] umeclidinium 62.5 mcg/actuation blister powder for inhalation 1 inh INHALATION QDAY #30 ea 09/23/20 [Rx Last Taken Unknown] ropinirole 2 mg tablet 2 mg PO QHS #30 tab 12/13/20 [Rx Last Taken Unknown] hydrocodone-acetaminophen 1 tab PO Q6H PRN PRN 3 Days #12 tablet 04/17/21 [Rx Last Taken Unknown] naproxen 500 mg PO BID #14 tab 04/17/21 [Rx Last Taken Unknown] prednisone 60 mg PO DAILY #15 tablet 04/17/21 [Rx Last Taken Unknown] Allergy/AdvReac Type Severity Reaction Status Date / Time No Known Allergies Allergy Verified 09/23/20 11:04 Family History Father Heart disease Mother CVA (cerebral vascular accident) Surgical History History of left heart catheterization (04/17/18) Presence of aortocoronary bypass graft (~01/15/17) Social History Smoking Status: Current every day smoker tobacco type: cigarettes Tobacco: How many years used: 38 second hand exposure: Yes alcohol intake: current alcohol intake frequency: a few times a week Alcohol type: beer substance use type: does not use caffeine: No what type of physical activity do you participate in: other details: cardiac rehab frequency: 3-4 times per week ROS ROS ED ROS Narrative Denies recent illness except for occasional nausea and vomiting. Mild weight loss. Denies chest pain. Review of Systems ROS Unobtainable: Denies due to encephalopathy Constitutional Constitutional ED: Denies chills or fever(s) Eyes Eyes: Denies change in vision ENT ENT ED: Denies ear pain or sore throat Cardiovascular Cardiovascular: Denies chest pain Respiratory/Chest Respiratory/Chest: Denies cough Gastrointestinal Gastrointestinal: Reports nausea and vomiting; Denies abdominal pain or diarrhea Genitourinary Genitourinary ED: Denies dysuria or hematuria Musculoskeletal Musculoskeletal: Denies myalgias Integumentary Denies rash Neurologic Neurologic: Denies headache(s) Psychiatric Psychiatric: Denies depression Endocrine Endocrinology: Denies polyuria Allergic/Immunologic Allergic/Immunologic ED: Denies urticaria EXAM Physical Exam Narrative Exam Narrative: Middle-age male no acute distress vital signs stable afebrile. Pulse ox 96% on room air no signs hypoxia. HEENT exam unremarkable. Neck nontender no lymphadenopathy. Lungs clear to auscultation bilaterally. Heart regular rate and rhythm rate about 80 no murmur. Chest were nontender. Abdomen soft nontender. Moving all 4 extremities. No edema. Back nontender. Neurologically is awake alert with no focal motor deficits. Const Vital Signs: 08/14/21 12:13 08/14/21 12:16 08/14/21 13:09 Temperature 98.1 F Temperature Source Oral Pulse Rate 85 Pulse Rate [Lying] 79 Pulse Rate [Sitting] 83 Pulse Rate [Standing] 82 Respiratory Rate 18 Respiratory Effort Normal Non-Labored Blood Pressure 151/82 H Blood Pressure [Lying] 150/78 H Blood Pressure [Sitting] 146/73 H Blood Pressure [Standing] 146/88 H Blood Pressure Mean 105 Blood Pressure Mean [Lying] 102 Blood Pressure Mean [Sitting] 97 Blood Pressure Mean [Standing] 107 Pulse Ox 96 Oxygen Delivery Method Room Air 08/14/21 15:27 Temperature Temperature Source Pulse Rate 85 Pulse Rate [Lying] Pulse Rate [Sitting] Pulse Rate [Standing] Respiratory Rate 21 H Respiratory Effort Blood Pressure 144/72 H Blood Pressure [Lying] Blood Pressure [Sitting] Blood Pressure [Standing] Blood Pressure Mean 96 Blood Pressure Mean [Lying] Blood Pressure Mean [Sitting] Blood Pressure Mean [Standing] Pulse Ox 97 Oxygen Delivery Method Room Air Positive well nourished and well developed; Negative for obese, cachectic, contractures or unkempt General Appearance ED: well developed and NAD; Negative for unkempt, cachectic or contractures Nutritional Appearance: Negative for cachectic or obese HEENT Reports moist mucous membranes Negative for trauma or tenderness Eyes PERRL and EOMs intact bilaterally Neck no lymphadenopathy, supple and no JVD General: Negative for tenderness Chest Wall inspection of chest normal and palpation of chest normal Resp normal respiratory effort and clear to auscultation bilaterally Effort and Inspection: Negative for pain with movement Auscultation: Negative for rales, rhonchi or wheezes Cardio regular rate, regular rhythm, S1 normal heart sound, S2 normal heart sound and no murmurs GI normal to inspection, nondistended, normoactive bowel sounds, non-tender, non- distended and no masses Inspection: Negative for abdominal distention Auscultation: normoactive bowel sounds Palpation: soft; Negative for tender, guarding or rebound tenderness present Back/Spine no CVA tenderness General Back: Negative for CVA tenderness Cervical Spine: Negative for cervical spine tenderness Extremity normal to inspection General Extremety ED: Negative for edema or tenderness General Extremity: Negative for edema Neuro oriented x3 and CN's II-XII intact bilaterally Sensorium / Orientation: alert; Negative for orientation impaired, lethargic or stuporous Motor Exam: strength 5/5 throughout Psych mental status grossly normal Appearance: Negative for unkempt Mood & Affect: Negative for depressed or tearful Skin No no rashes or lesions noted and No no wounds MDM MDM MDM Narrative Medical decision making narrative: 60-year-old male prior history of triple bypass and one stent had a near syncopal event today. Denies any palpitations. Not recently been ill. Exam benign. Vital signs stable. Screening labs will be obtained along with orthostatic vital signs. Repeat exam patient is doing well at 4 PM. We went over all his test results. He had previously walk to the bathroom without difficulty. Will be discharged home with outpatient follow-up. Lab Data Attestation: I reviewed the patient's lab results. Lab results narrative: CBC shows a white count 9. Hemoglobin 14. Electrolytes unremarkable gap of 9. Normal creatinine. Normal glucose. High-sensitivity troponin of 8. Labs: Laboratory Results - last 24 hr 08/14/21 08/14/21 12:15 12:15 WBC 9.6 RBC 4.24 L Hgb 14.9 Hct 43.4 MCV 102.4 H MCH 35.1 H MCHC 34.3 RDW Std Deviation 50.3 H RDW Coeff of Mark 13.2 Plt Count 199 MPV 9.7 Immature Gran % (Auto) 0.400 Neut % (Auto) 69.6 Lymph % (Auto) 17.2 L [place]ferro % (Auto) 10.3 H Eos % (Auto) 1.8 Baso % (Auto) 0.7 Absolute Neuts (auto) 6.7 Absolute Lymphs (auto) 1.66 Nucleated RBC % 0 Sodium 135 L Potassium 4.2 Chloride 103 Carbon Dioxide 23.0 Anion Gap 9 BUN 6 L Creatinine 0.75 Estim Creat Clear Calc 103.87 Est GFR (MDRD) Af Amer 137 Est GFR (MDRD) Non-Af 113 BUN/Creatinine Ratio 8.0 L Glucose 122 H Calcium 8.5 Troponin I High Sens 8 Radiography Chest X-Ray - ED: 1 View, Read by ED Physician, Read by Radiologist, Heart, Lungs, Mediastinum, Bony Structures, No Acute Disease and Chronic Changes Diagnostic Testing: Radiology Impression Chest X-Ray 08/14/21 12:52 IMPRESSION: No radiographic evidence of acute cardiopulmonary disease. No interval change. at 1438 Reported and signed by: Raymundo Trammell MD Electronically Signed: Raymundo Trammell MD at 14:37 EDT Tel , Service support , Portable single view chest x-ray interpreted by myself and the radiologist shows no acute abnormality. Rhythm Strip Rhythm Strip: Sinus Rhythm Rate: 83 Ectopy: None EKG Initial EKG: Attestation: I personally reviewed and interpreted this EKG as follows: Interpretation: Sinus Rhythm Comments: Normal sinus rhythm rate 83 no acute signs of GA or ischemia. Prior EKG tracings: not available for review Discharge Plan Triage Chief Complaint: Dizziness ED Provider: Poncho Cole Dx/Rx/DC Orders Clinical Impression: Near syncope Instructions: ED Near-Fainting, Uncertain Cause Prescriptions: No Action (DME) Automatic Blood Pressure Machine Qty: 1 RF: 0 furosemide [Lasix] 40 mg tablet 40 mg PO QDAY Qty: 30 RF: 11 albuterol sulfate 2.5 mg /3 mL (0.083 %) solution for nebulization 2.5 mg INHALATION Q4H PRN (Reason: Sob &/Or Wheezing) Qty: 180 RF: 3 gho-JW-viewtiehc-carbetapentane 5 mg-10 mg-10 mg-60 mg tablet 5-10-10-60 mg tablet PO RF: 0 albuterol sulfate 90 mcg/actuation HFA aerosol inhaler 2 puff INHALATION Q4H PRN (Reason: shortness of breath or wheezing) Qty: 8.5 RF: 6 Symbicort 160-4.5 mcg/actuation HFA aerosol inhaler 2 puff INHALATION BID Qty: 1 RF: 11 Incruse Ellipta 62.5 mcg/actuation blister with device 1 inh INHALATION QDAY Qty: 30 RF: 11 isosorbide mononitrate 120 MG tablet 150 mg PO DAILY RF: 0 carvedilol 6.25 MG tablet 12.5 mg PO BID RF: 0 amlodipine 5 MG tablet 5 mg PO DAILY RF: 0 ezetimibe 10 MG tablet 10 mg PO DAILY RF: 0 clopidogrel 75 MG tablet 75 mg PO DAILY RF: 0 aspirin 325 MG tablet 325 mg PO DAILY RF: 0 benzonatate 100 MG capsule 200 mg PO TID PRN PRN (Reason: Cough) Qty: 20 RF: 0 losartan 50 MG tablet 50 mg PO BID RF: 0 sulfamethoxazole-trimethoprim 1 TABLET tablet 1 tab PO BID RF: 0 ranolazine 500 MG tablet 500 mg PO BID RF: 0 ibuprofen 800 MG tablet 800 mg PO TID PRN PRN (Reason: Pain Score 1-10/10) Qty: 20 RF: 0 cephalexin 500 MG capsule 500 mg PO Q6 Qty: 40 RF: 0 prednisone 20 MG tablet 60 mg PO DAILY Qty: 15 RF: 0 naproxen 500 MG tablet 500 mg PO BID Qty: 14 RF: 0 hydrocodone-acetaminophen [hydrocodone-acetaminophen] 1 TABLET tablet 1 tab PO Q6H PRN PRN (Reason: Pain) 3 Days Qty: 12 RF: 0 nitroglycerin 0.4 mg tablet, sublingual 0.4 mg SUBLINGUAL Q5M PRN (Reason: Chest Pain) Qty: 25 RF: 3 (DME) Disability Placard Qty: 1 RF: 0 atorvastatin 80 mg tablet 80 mg PO QHS Qty: 30 RF: 11 ropinirole 2 mg tablet 2 mg PO QHS Qty: 30 RF: 6 Primary Care Provider: Nelson Boone Referrals: Nelson Boone MD [Primary Care Provider] - As soon as possible Activity Restrictions/Additional Instructions: Plenty of fluids and rest. Return if feeling worse. Your test today were normal. Follow-up your primary care physician. Disposition Disposition: Home, Self Care
[2021-08-14 13:09] VITALS: BP 146/73; BP 146/88; BP 150/78; PULSE 79; PULSE 82; PULSE 83
[2021-08-14 13:11] LABS: Absolute Lymphocyte Count 1.66 X10^3/uL (0.83-4.51); Absolute Neutrophil Count 6.7 X10^3/uL (2.0-7.7); Basophil# 0.07 X10^3/uL; Basophil% 0.7 % (0-1); Eosinophil# 0.17 X10^3/uL; Eosinophils% 1.8 % (0-5); Hematocrit 43.4 % (40-54); Hemoglobin 14.9 g/dL (13.0-16.5); Lymphocyte # 1.66 X10^3/ul (0.83-4.51); Lymphocyte % 17.2 % (19-41); Mean Corp Hgb Conc 34.3 g/dL (32-36); Mean Corpuscular Hgb 35.1 pg (27.0-32.0); Mean Corpuscular Volume 102.4 fL (80-94); Mean Platelet Vol. 9.7 fl (6.2-12.0); Monocyte# 0.99 X10^3/uL; Monocyte% 10.3 % (0-10); NRBC Flagged by Analyzer 0 % (0-5); Neutrophil % 69.6 % (47-70); Platelet Count 199 K/mm3 (150-450); RBC Distribution Width CV 13.2 % (11.6-14.6); RBC Distribution Width SD 50.3 fl (35.1-43.9); Red Blood Count 4.24 M/mm3 (4.6-6.2); White Blood Count 9.6 K/mm3 (4.4-11.0)
[2021-08-14 13:25] LABS: Anion Gap 9 (5-15); BUN 6 mg/dL (7-18); Calcium,Total 8.5 mg/dL (8.5-10.1); Chloride 103 mmol/L (98-107); Creatinine, Serum 0.75 mg/dL (0.70-1.30); EST Glomerular Filtration Rate 113 mL/min (>60); Est Glom Filt Rate - Afr Amer 137 mL/min (>60); Estimated Creatinine Clearance 103.87 ml/min; Glucose 122 mg/dL (74-106); Potassium 4.2 mmol/L (3.5-5.1); Sodium Level 135 mmol/L (136-145); Troponin-I HS 8 pg/mL (3.0-78.0)
[2021-08-14 15:27] VITALS: BP 144/72; PULSE 85; RESP 21; O2SAT 97
== END 2021-08-14 16:15 | disposition home or self-care (01) ==
PROVIDERS: Emergency Provider Emergency Medicine; PCP Family Medicine
DX: R55 Syncope and collapse (principal); I10 Essential (primary) hypertension; E78.5 Hyperlipidemia, unspecified; I25.10 Atherosclerotic heart disease of native coronary artery without angina pectoris; J44.9 Chronic obstructive pulmonary disease, unspecified; Z95.1 Presence of aortocoronary bypass graft; Z79.82 Long term (current) use of aspirin; Z79.02 Long term (current) use of antithrombotics/antiplatelets; Z79.899 Other long term (current) drug therapy; F17.210 Nicotine dependence, cigarettes, uncomplicated
CPT/HCPCS: 71045; 80048; 84484; 85025; 93005; 99285; A4216

== ENCOUNTER 2023-03-02 09:34 | Emergency (ER) | payer MEDICARE, MEDICAID, SELFPAY ==
[2017-01-11 12:02] VITALS: BMI 32.8
[2023-03-02 09:35] VITALS: BP 181/92; PULSE 77; RESP 16; TEMP 36.2; O2SAT 99; BMI 32.1
[2023-03-02 09:42] VITALS: PULSE 78; RESP 20; O2SAT 97
--- NOTE | 2023-03-02 09:45 | RAD_ITS ---
STUDY: X-RAY CHEST REASON FOR EXAM: Male, 62 years old. Chest pain TECHNIQUE: Single AP portable view of the chest. COMPARISON: Comparison is made with prior study August 14, 2021.. FINDINGS: EKG electrodes are seen. Hypoinflation. The lungs are clear. There is no demonstrated pleural abnormality. Sternal cerclage wires and vascular clips are present from a prior sternotomy and coronary artery bypass graft procedure (CABG). Normal mediastinum and kenna. Normal visualized pulmonary arteries. There is atherosclerotic calcification of the aortic arch with tortuosity. There are diffuse degenerative changes of the visualized thoracic spine. Normal visualized ribs, clavicles, and shoulders. There is no demonstrated abnormality of the visualized soft tissue structures of the upper abdomen. RAD/Chest 1 View (Portable) IMPRESSION: Stable examination. Electronically Signed: Jake Oquendo MD at 11:39 EDT ,
--- NOTE | 2023-03-02 09:49 | EX.ED.DYSGE1 ---
HPI History of Present Illness Chief Complaint: Dizziness Informant: patient Narrative Narrative: Patient is a 62-year-old male with history of coronary artery disease status post CABG and subsequent stenting, COPD and sounds like angina presenting for chest discomfort and near syncope. Patient states he had 2 episodes this week where he felt he was going to pass out. The one earlier in the week he checked his blood pressure and his systolic was in the 90s. He states that is low for him. He had another episode this morning. He notes that when he woke up this morning he did have some chest discomfort and left side of his chest but he took his chest pain medicine and it got better. He also took a nitroglycerin this morning when he was having his dizziness. Currently has no complaints. His sugar presser is through [facility]. Patient denies any swelling of his legs, shortness of breath or change in his cough. Denies any diaphoresis, nausea, vomiting or change in his bowel habits. Denies any black or blood in stool. No other complaints at this time. Patient notes he was in the ER before for similar complaints. [facility] Medical History (Updated 03/02/23 @ 12:[address] Evelyne Pierce, DO) Abnormal stress test Atherosclerosis of coronary artery of [place] heart without angina pectoris Atherosclerosis of other coronary artery bypass graft(s) with other forms of angina pectoris Hyperlipidemia Hypertension Obesity Home Medications nitroglycerin 0.4 mg sublingual tablet 0.4 mg sublingual Q5M PRN Chest Pain #25 tabs 04/11/18 [Rx Last Taken 03/02/23] furosemide 40 mg tablet (Lasix) 40 mg PO QDAY #30 tabs 04/12/18 [Rx Last Taken 03/02/23] isosorbide mononitrate 120 mg tablet,extended release 24 hr 150 mg PO DAILY 04/16/18 [History Last Taken 03/02/23] atorvastatin 80 mg tablet 80 mg PO QHS CHOLESTEROL #30 tabs 12/24/18 [Rx Last Taken 03/01/23] amlodipine 5 mg tablet 5 mg PO DAILY 02/28/19 [History Last Taken Unknown] aspirin 325 mg tablet 325 mg PO BID 02/28/19 [History Last Taken 03/02/23] clopidogrel 75 mg tablet 75 mg PO DAILY 02/28/19 [History Last Taken 03/02/23] ezetimibe 10 mg tablet 10 mg PO DAILY 02/28/19 [History Last Taken 03/02/23] ranolazine 500 mg tablet,extended release,12 hr 500 mg PO BID 01/13/20 [History Last Taken 03/02/23] carvedilol 25 mg tablet 25 mg PO BID HTN 03/02/23 [History Last Taken 03/02/23] losartan 100 mg tablet 100 mg PO DAILY . 03/02/23 [History Last Taken 03/02/23] Allergy/AdvReac Type Severity Reaction Status Date / Time No Known Allergies Allergy Verified 03/02/23 09:35 Family History Father Heart disease Mother CVA (cerebral vascular accident) Surgical History History of left heart catheterization (04/17/18) Presence of aortocoronary bypass graft (~01/15/17) Social History Smoking Status: Current every day smoker tobacco type: cigarettes Tobacco: How many years used: 38 second hand exposure: Yes alcohol intake: current alcohol intake frequency: a few times a week Alcohol type: beer substance use type: does not use caffeine: No what type of physical activity do you participate in: other details: cardiac rehab frequency: 3-4 times per week ROS ROS ED Constitutional Constitutional ED: Reports other Details: Near syncopal episode ; Denies chills, fever(s) or sweats Eyes Eyes: Denies change in vision ENT ENT ED: Denies sore throat Cardiovascular Cardiovascular: Reports chest pain; Denies palpitations Respiratory/Chest Respiratory/Chest: Reports cough and other Details: Chronic cough, no change ; Denies dyspnea or dyspnea on exertion Gastrointestinal Gastrointestinal: Denies abdominal pain, diarrhea, melena, nausea or vomiting Genitourinary Genitourinary ED: Denies dysuria or urinary frequency Musculoskeletal Musculoskeletal: Denies arthralgias or myalgias Integumentary Denies rash Neurologic Neurologic: Denies headache(s) or weakness Psychiatric Psychiatric: Denies anxiety Hematologic/Lymphatic Hematologic/Lymphatic: Denies easy bleeding or easy bruising EXAM Physical Exam Const Vital Signs: 03/02/23 09:35 03/02/23 09:42 03/02/23 09:43 Temperature 97.1 F L Temperature Source Temporal Pulse Rate 77 78 Pulse Rate [Lying] Pulse Rate [Sitting (for 1 minute prior to obtaining)] Pulse Rate [Standing (for 1 minute prior to obtaining)] Respiratory Rate 16 20 H Respiratory Effort Normal Non-Labored Respiratory Pattern Normal Blood Pressure 181/92 H Blood Pressure [Lying] Blood Pressure [Sitting (for 1 minute prior to obtaining)] Blood Pressure [Standing (for 1 minute prior to obtaining)] Blood Pressure Mean 121 Blood Pressure Mean [Lying] Blood Pressure Mean [Sitting (for 1 minute prior to obtaining)] Blood Pressure Mean [Standing (for 1 minute prior to obtaining)] Pulse Ox 99 97 Oxygen Delivery Method Room Air Room Air 03/02/23 09:52 03/02/23 09:57 03/02/23 12:56 Temperature Temperature Source Pulse Rate 71 Pulse Rate [Lying] 70 Pulse Rate [Sitting (for 1 minute prior to obtaining)] 69 Pulse Rate [Standing (for 1 minute prior to obtaining)] 76 Respiratory Rate 18 Respiratory Effort Respiratory Pattern Blood Pressure 132/87 H Blood Pressure [Lying] 121/68 H Blood Pressure [Sitting (for 1 minute prior to obtaining)] 133/66 H Blood Pressure [Standing (for 1 minute prior to obtaining)] 120/79 Blood Pressure Mean Blood Pressure Mean [Lying] 85 Blood Pressure Mean [Sitting (for 1 minute prior to obtaining)] 88 Blood Pressure Mean [Standing (for 1 minute prior to obtaining)] 92 Pulse Ox 97 Oxygen Delivery Method Room Air Positive well nourished and well developed General Appearance ED: well developed and NAD HEENT Reports moist mucous membranes Eyes PERRL and EOMs intact bilaterally Neck supple and no JVD Resp normal respiratory effort and clear to auscultation bilaterally Auscultation: Negative for wheezes Cardio regular rate, regular rhythm and no murmurs GI normal to inspection, nondistended, normoactive bowel sounds and non-tender Back/Spine no CVA tenderness Extremity normal to inspection Extremity Narrative: Very mild nonpitting edema of the left lower extremity. Patient states it is chronic from his bypass surgery. 2+ radial and DP pulses bilaterally General Extremety ED: Yes edema; Negative for tenderness General Extremity: edema Neuro oriented x3 Sensorium / Orientation: alert Motor Exam: Negative for general weakness Skin no rashes or lesions noted and no wounds MDM MDM MDM Narrative Medical decision making narrative: Patient is evaluated for near syncopal episode that happened earlier today and another 1 that happened earlier in the week. He states he had some mild chest discomfort this morning but it resolved with his chest pain medicine. However he does not normally have chest pain in the morning. He has significant cardiac history and cardiac work-up is obtained as well as orthostatic vital signs. I will give some IV fluids. Cardiac catheterization from 04/17/2018 reviewed. This was performed because of new onset of angina. Showed triple-vessel disease of the LM, LCx and RCA and previously known occluded SVG to RCA. Discussed medical therapy versus PCI of the RCA however patient declined intervention at that time. Patient is largely asymptomatic while in the emergency room. EKG is nonischemic. Delta high-sensitivity troponin is normal. He does not have any arrhythmia while in the ER. He states he has no complaints. Work-up for ACS is largely normal. Orthostatics are normal. Blood pressure improved without any further intervention. Chest x-ray interpreted by myself as well as radiology does not show any acute process. Discussed admission for further cardiac monitoring as my biggest concern at this point is arrhythmia causing these episodes. Patient declined stating he really just rather go home. He is then set up for 48 Holter monitor. He is encouraged to follow-up with his sugar presser at [place]. He agrees with this plan of care. He is given strict return precautions. He is discharged home in stable condition. He ambulates easily out of the emergency room. History & Record Review Additional record(s) reviewed:: Prior inpatient record Lab Data Labs: Laboratory Results - last 24 hr 03/02/23 03/02/23 03/02/23 09:43 09:43 11:50 WBC 10.9 RBC 4.65 Hgb 15.6 Hct 46.1 MCV 99.1 H MCH 33.5 H MCHC 33.8 RDW Std Deviation 46.4 H RDW Coeff of Mark 12.7 Plt Count 242 MPV 9.1 Immature Gran % (Auto) 0.600 Neut % (Auto) 78.7 H Lymph % (Auto) 12.0 L Bureau % (Auto) 7.6 Eos % (Auto) 0.6 Baso % (Auto) 0.5 Absolute Neuts (auto) 8.5 H Absolute Lymphs (auto) 1.30 Nucleated RBC % 0 Sodium 138 Potassium 4.2 Chloride 105 Carbon Dioxide 26.0 Anion Gap 7 BUN 15 Creatinine 0.99 Estim Creat Clear Calc 76.77 Est GFR (MDRD) Af Amer 99 Est GFR (MDRD) Non-Af 82 BUN/Creatinine Ratio 15.2 Glucose 119 H Calcium 9.1 Magnesium 2.0 Troponin I High Sens 8 7 Radiography Chest X-Ray - ED: 1 View, Read by ED Physician, Read by Radiologist and No Acute Disease Diagnostic Testing: Clinical Impression(s) from Imaging Studies Chest X-Ray 03/02/23 09:45 IMPRESSION: Stable examination. Electronically Signed: Jake Oquendo MD at 11:39 EDT , Rhythm Strip Rhythm Strip: Sinus Rhythm Rate: 72 Ectopy: None EKG Initial EKG: Attestation: I personally reviewed and interpreted this EKG as follows: Interpretation: Sinus Rhythm Comments: Normal sinus rhythm at a rate of 72 bpm Rightward axis Normal intervals Nonspecific ST abnormalities Compared to prior EKG on 08/14/2021, no significant change Differential Diagnosis Chest pain/SOB: ACS ACS: Positive for no evidence of ACS based on cardiac biomarkers and EKG without ischemia, pneumonia and CHF Differential Diagnosis: Arrhythmia Discharge Plan Triage Chief Complaint: Dizziness ED Provider: Evelyne Pierce Dx/Rx/DC Orders Clinical Impression: Near syncope, Atherosclerosis of coronary artery of [place] heart without angina pectoris Instructions: ED Near-Fainting, Uncertain Cause Prescriptions: No Action furosemide [Lasix] 40 mg tablet 40 mg PO QDAY Qty: 30 11RF isosorbide mononitrate 120 MG tablet 150 mg PO DAILY amlodipine 5 MG tablet 5 mg PO DAILY ezetimibe 10 MG tablet 10 mg PO DAILY clopidogrel 75 MG tablet 75 mg PO DAILY aspirin 325 MG tablet 325 mg PO BID ranolazine 500 MG tablet 500 mg PO BID carvedilol 25 mg tablet 25 mg PO BID Label Comments: TAKE 1 TABLET BY MOUTH TWICE DAILY losartan 100 mg tablet 100 mg PO DAILY Label Comments: TAKE 1 TABLET BY MOUTH ONCE DAILY nitroglycerin 0.4 mg tablet, sublingual 0.4 mg SUBLINGUAL Q5M PRN (Reason: Chest Pain) Qty: 25 3RF atorvastatin 80 mg tablet 80 mg PO QHS Qty: 30 11RF Other Ambulatory Orders: Cardiac Holter Monitor, 48 Hrs (Routine) Timeframe: 1 Day Facility: [facility] - Location: Cardiovascular Services Ordered By: Dr. Evelyne Pierce Primary Care Provider: Nelson Boone Referrals: Nelson Boone MD [Primary Care Provider] - Activity Restrictions/Additional Instructions: The exact cause of the symptoms is not clear. I am concerned that you might be having some type of cardiac arrhythmia that is causing these episodes. Please call your sugar presser today and let them know that you are in the ER and that we set you up with a Holter monitor. If you have further episodes please return to the emergency room. Disposition Disposition: Home, Self Care Discharge Date/Time: 03/02/23 13:20
[2023-03-02 09:54] LABS: Absolute Neutrophil Count 8.5 X10^3/uL (2.0-7.7); Basophil# 0.05 X10^3/uL; Basophil% 0.5 % (0-1); Eosinophil# 0.07 X10^3/uL; Eosinophils% 0.6 % (0-5); Hematocrit 46.1 % (40-54); Hemoglobin 15.6 g/dL (13.0-16.5); Mean Corp Hgb Conc 33.8 g/dL (32-36); Mean Corpuscular Hgb 33.5 pg (27.0-32.0); Mean Corpuscular Volume 99.1 fL (80-94); Mean Platelet Vol. 9.1 fl (6.2-12.0); Monocyte# 0.83 X10^3/uL; Monocyte% 7.6 % (0-10); NRBC Flagged by Analyzer 0 % (0-5); Neutrophil # 8.54 X10^3/uL (2.7-7.7); Neutrophil % 78.7 % (47-70); Platelet Count 242 K/mm3 (150-450); RBC Distribution Width CV 12.7 % (11.6-14.6); RBC Distribution Width SD 46.4 fl (35.1-43.9); Red Blood Count 4.65 M/mm3 (4.6-6.2); White Blood Count 10.9 K/mm3 (4.4-11.0)
[2023-03-02] MEDS: 0.9% Normal Saline 1,000 ML 1000 ML IV (09:56)
[2023-03-02 09:57] VITALS: BP 120/79; BP 121/68; BP 133/66; PULSE 69; PULSE 70; PULSE 76
[2023-03-02 10:12] LABS: Anion Gap 7 (5-15); BUN 15 mg/dL (7-18); BUN/Creat Ratio 15.2 RATIO (10-20); Calcium,Total 9.1 mg/dL (8.5-10.1); Chloride 105 mmol/L (98-107); Creatinine, Serum 0.99 mg/dL (0.70-1.30); EST Glomerular Filtration Rate 82 mL/min (>60); Est Glom Filt Rate - Afr Amer 99 mL/min (>60); Estimated Creatinine Clearance 76.77 ml/min; Glucose 119 mg/dL (74-106); Potassium 4.2 mmol/L (3.5-5.1); Sodium Level 138 mmol/L (136-145); Troponin-I HS (w/2H Reflex) 8 pg/mL (3.0-78.0)
[2023-03-02 11:52] LABS: Reflex Troponin-HS? (from REC) Y
[2023-03-02 12:13] LABS: Troponin-I HS 7 pg/mL (3.0-78.0)
[2023-03-02 12:56] VITALS: BP 132/87; PULSE 71; RESP 18; O2SAT 97
== END 2023-03-02 13:20 | disposition home or self-care (01) ==
PROVIDERS: Emergency Provider Emergency Medicine; PCP Family Medicine; Visit Provider Emergency Medicine
DX: R55 Syncope and collapse (principal); J44.9 Chronic obstructive pulmonary disease, unspecified; R42 Dizziness and giddiness; I10 Essential (primary) hypertension; E78.5 Hyperlipidemia, unspecified; F17.210 Nicotine dependence, cigarettes, uncomplicated; I25.10 Atherosclerotic heart disease of native coronary artery without angina pectoris
CPT/HCPCS: 71045; 80048; 83735; 84484; 85025; 93005; 93225; 93226; 96360; 99284; J7030; A4216

== ENCOUNTER → 2023-03-02 | Outpatient (CLI) | payer MEDICARE, MEDICAID, SELFPAY ==
[2017-01-11 12:02] VITALS: BMI 32.8
== END | disposition home or self-care (01) ==
LOC: PSN 12:30
PROVIDERS: PCP Family Medicine; Visit Provider Emergency Medicine
DX: R55 Syncope and collapse (principal)
CPT/HCPCS: 93225; 93226

== ENCOUNTER 2023-09-02 12:59 | Emergency (ER) | payer MEDICARE, MEDICAID, SELFPAY ==
[2017-01-11 12:02] VITALS: BMI 32.8
[2023-09-02 13:00] VITALS: BP 205/105; PULSE 87; RESP 16; TEMP 36.2; O2SAT 99
--- NOTE | 2023-09-02 13:08 | ED.VIS.LOWEX ---
HPI History of Present Illness Chief Complaint: Lower Extremity Injury Informant: patient Onset/Context/Timing Onset: Today Narrative Narrative: Patient presents secondary to left foot injury. Patient states he was walking today and rolled his left foot and now has increased pain. 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 He did take 2 tabs of Aleve prior to arrival. [facility] Medical History (Updated 09/02/23 @ 14:[address] Raven Logan MD) Abnormal stress test Atherosclerosis of coronary artery of [place] heart without angina pectoris Atherosclerosis of other coronary artery bypass graft(s) with other forms of angina pectoris Hyperlipidemia Hypertension Obesity Home Medications nitroglycerin 0.4 mg sublingual tablet 0.4 mg sublingual Q5M PRN Chest Pain #25 tabs 04/11/18 [Rx Last Taken 03/02/23] furosemide 40 mg tablet (Lasix) 40 mg PO QDAY #30 tabs 04/12/18 [Rx Last Taken 03/02/23] isosorbide mononitrate 120 mg tablet,extended release 24 hr 150 mg PO DAILY 04/16/18 [History Last Taken 03/02/23] atorvastatin 80 mg tablet 80 mg PO QHS CHOLESTEROL #30 tabs 12/24/18 [Rx Last Taken 03/01/23] amlodipine 5 mg tablet 5 mg PO DAILY 02/28/19 [History Last Taken Unknown] aspirin 325 mg tablet 325 mg PO BID 02/28/19 [History Last Taken 03/02/23] clopidogrel 75 mg tablet 75 mg PO DAILY 02/28/19 [History Last Taken 03/02/23] ezetimibe 10 mg tablet 10 mg PO DAILY 02/28/19 [History Last Taken 03/02/23] ranolazine 500 mg tablet,extended release,12 hr 500 mg PO BID 01/13/20 [History Last Taken 03/02/23] carvedilol 25 mg tablet 25 mg PO BID HTN 03/02/23 [History Last Taken 03/02/23] losartan 100 mg tablet 100 mg PO DAILY . 03/02/23 [History Last Taken 03/02/23] hydrocodone-acetaminophen 5-325mg 5mg-325mg 1 tab PO Q6H PRN PRN Pain 3 days #10 TABLETS 10/08/23 [Rx Last Taken Unknown] Allergy/AdvReac Type Severity Reaction Status Date / Time No Known Allergies Allergy Verified 03/02/23 09:35 Family History Father Heart disease Mother CVA (cerebral vascular accident) Surgical History History of left heart catheterization (04/17/18) Presence of aortocoronary bypass graft (~01/15/17) Social History household members: spouse Smoking Status: Current every day smoker tobacco type: cigarettes Tobacco: How many years used: 38 second hand exposure: Yes alcohol intake: current alcohol intake frequency: a few times a week Alcohol type: beer substance use type: does not use caffeine: No what type of physical activity do you participate in: other details: cardiac rehab frequency: 3-4 times per week ROS ROS ED Constitutional Constitutional ED: Denies chills or fever(s) Eyes Eyes: Denies discharge from eye(s) ENT ENT ED: Denies discharge from eye(s) Cardiovascular Cardiovascular: Denies chest pain Respiratory/Chest Respiratory/Chest: Denies cough or dyspnea Gastrointestinal Gastrointestinal: Denies abdominal pain, nausea or vomiting Musculoskeletal Musculoskeletal: Reports extremity pain; Denies back pain Integumentary Denies Abrasions or rash Neurologic Neurologic: Denies headache(s) or weakness Allergic/Immunologic Allergic/Immunologic ED: Denies lip swelling or urticaria EXAM Physical Exam Const Vital Signs: 09/02/23 13:00 Temperature 97.2 F L Temperature Source Temporal Pulse Rate 87 Respiratory Rate 16 Blood Pressure 205/105 H Blood Pressure Mean 138 Pulse Ox 99 Oxygen Delivery Method Room Air Positive well nourished and well developed General Appearance ED: well developed HEENT Reports normocephalic and head/scalp atraumatic Eyes PERRL and EOMs intact bilaterally Neck supple Chest Wall inspection of chest normal and palpation of chest normal Resp normal respiratory effort and clear to auscultation bilaterally Cardio regular rate and regular rhythm GI non-tender Palpation: soft Extremity Extremity Narrative: Edema and chronic arthritic changes noted to the first MTP joint. Slight erythema noted. Good pulses and distal sensation. Normal sensation. No tenderness at the ankle or proximal fibula. No evidence of ecchymosis or abrasions. Neuro oriented x3 Sensorium / Orientation: alert Psych mental status grossly normal MDM MDM MDM Narrative Medical decision making narrative: Patient did take Aleve prior to arrival. Left foot x-rays are obtained to evaluate for fracture. Radiography Diagnostic Testing: Clinical Impression(s) from Imaging Studies Foot X-Ray 09/02/23 13:11 IMPRESSION: 1. Degenerative arthrosis. 2. No demonstrated acute osseous injury. Electronically Signed: Fer Arriaza MD at 14:38 EDT , Treatment and Re-Evaluation Narrative: Left foot x-rays per my interpretation reveals significant arthritic changes of the first MTP joint but no evidence of acute fracture. Radiology interpretation is reviewed and agrees. Patient will be given prescription for [place] to use for breakthrough pain. Mitch wrap applied. I will have nursing staff reevaluate the patient's blood pressure as it was significantly elevated on arrival. Discharge Plan Triage Chief Complaint: Lower Extremity Injury ED Provider: Raven Logan Dx/Rx/DC Orders Clinical Impression: Sprain of left foot Instructions: ED Foot Sprain Prescriptions: New hydrocodone-acetaminophen 5-325 mg tablet 1 tab PO Q6H PRN PRN (Reason: Pain) 3 Days Qty: 10 0RF No Action furosemide [Lasix] 40 mg tablet 40 mg PO QDAY Qty: 30 11RF isosorbide mononitrate 120 MG tablet 150 mg PO DAILY amlodipine 5 MG tablet 5 mg PO DAILY ezetimibe 10 MG tablet 10 mg PO DAILY clopidogrel 75 MG tablet 75 mg PO DAILY aspirin 325 MG tablet 325 mg PO BID ranolazine 500 MG tablet 500 mg PO BID carvedilol 25 mg tablet 25 mg PO BID Patient Comments: TAKE 1 TABLET BY MOUTH TWICE DAILY losartan 100 mg tablet 100 mg PO DAILY Patient Comments: TAKE 1 TABLET BY MOUTH ONCE DAILY nitroglycerin 0.4 mg tablet, sublingual 0.4 mg SUBLINGUAL Q5M PRN (Reason: Chest Pain) Qty: 25 3RF atorvastatin 80 mg tablet 80 mg PO QHS Qty: 30 11RF Primary Care Provider: Nelson Boone Referrals: Nelson Boone MD [Primary Care Provider] - 1 Week if not improving Disposition Disposition: Home, Self Care
--- NOTE | 2023-09-02 13:11 | RAD_ITS ---
INDICATION: injury EXAMINATION/TECHNIQUE: X-RAY - LEFT XR Foot Min 3 Views 3 VIEWS COMPARISON: Prior study dated: 01/13/2020. FINDINGS: SOFT TISSUES: No soft tissue swelling or gas. No radiopaque foreign body. BONES/JOINTS: No acute fracture or subluxation.. Normal alignment. Degenerative arthrosis of the first metatarsophalangeal joint with mild hallux valgus deformity unchanged. Small posterior calcaneal spur. No sclerotic or destructive changes observed. RAD/Foot min 3 Views IMPRESSION: 1. Degenerative arthrosis. 2. No demonstrated acute osseous injury. Electronically Signed: Fer Arriaza MD at 14:38 EDT ,
[2023-09-02] MEDS: HYDROcodone Bitartrate/Apap 5/325 Tablet PO (15:06)
[2023-09-02 15:08] VITALS: BP 180/99
== END 2023-09-02 15:17 | disposition home or self-care (01) ==
PROVIDERS: Emergency Provider Emergency Medicine; PCP Family Medicine; Visit Provider Emergency Medicine
DX: S93.602A Unspecified sprain of left foot, initial encounter (principal); I25.10 Atherosclerotic heart disease of native coronary artery without angina pectoris; E78.5 Hyperlipidemia, unspecified; I10 Essential (primary) hypertension; F17.210 Nicotine dependence, cigarettes, uncomplicated; Z79.899 Other long term (current) drug therapy; Z79.82 Long term (current) use of aspirin; Z79.02 Long term (current) use of antithrombotics/antiplatelets; X58.XXXA Exposure to other specified factors, initial encounter; Y93.01 Activity, walking, marching and hiking
CPT/HCPCS: 73630; 99282

== ENCOUNTER 2025-01-05 15:33 | Emergency (ER) | payer MEDICARE, MEDICAID, SELFPAY ==
[2017-01-11 12:02] VITALS: BMI 32.8
[2025-01-05 15:33] VITALS: BP 178/96; PULSE 116; RESP 16; TEMP 36.2; O2SAT 98; BMI 27.6
[2025-01-05 17:37] LABS: ALB/GLOB Ratio 0.5 RATIO (0.9-2.4); AST(SGOT) 18 U/L (15-37); Alanine Aminotransfer ALT/SGPT 28 U/L (16-61); Albumin, Serum 2.4 g/dL (3.2-5.0); Alkaline Phosphatase 61 U/L (45-117); Anion Gap 5 (5-15); BUN 10 mg/dL (7-18); BUN/Creat Ratio 16.6 RATIO (10-20); Calcium,Total 8.6 mg/dL (8.5-10.1); Chloride 102 mmol/L (98-107); EST Glomerular Filtration Rate 145 mL/min (>60); Est Glom Filt Rate - Afr Amer 175 mL/min (>60); Estimated Creatinine Clearance 133.72 ml/min; Globulin 4.5 g/dL (2.2-4.2); Glucose 110 mg/dL (74-106); Potassium 3.7 mmol/L (3.5-5.1); Protein, Total 6.9 g/dL (6.4-8.2); Sodium Level 135 mmol/L (136-145)
--- NOTE | 2025-01-05 17:46 | CT_ITS ---
PROCEDURE: ABDOMEN/PELVIS WITH CONTRAST REASON FOR EXAM: 64-year-old male, right-sided abdominal pain for 2 weeks, 40 lb weight loss in 1 month, constipation. TECHNIQUE: Abdomen and pelvis CT with intravenous contrast. Oral contrast was also used. IV CONTRAST: COMPARISON: None. FINDINGS: Lung bases: Partially visualized median sternotomy wires. The heart is normal in size. Coronary artery and thoracic aortic calcifications. Several bilateral (right greater than left) pulmonary nodules, with the larger nodules demonstrating central area of lucency/cavitation (for example within the right lower lobe series 2, image 10 measuring 1.2 cm). Bibasilar atelectasis. No pleural effusion. Liver: The liver is normal in size without focal hepatic mass. Focal fatty sparing of the gallbladder fossa. The major portal veins are patent. No biliary ductal dilation. Gallbladder: Probable gallbladder Phrygian cap, a normal variant. No gallbladder wall thickening or pericholecystic fluid. Spleen: Unremarkable. Pancreas: Unremarkable. Adrenals: Unremarkable. Kidneys: No nephrolithiasis or hydronephrosis. Bilateral punctate calcifications, likely vascular. Bladder: Moderate volume non-dependent air within the urinary bladder. Punctate area of gas along the posterolateral left bladder wall, with focal area of bladder wall disruption (series 601, image 69). The bladder is mildly distended with diffuse wall thickening. Reproductive Organs: Questionable prior TURP deformity. Bowel: Oral contrast material opacifies the normal caliber distal small bowel. There is diffuse wall thickening, fat stranding and enhancement of the distal colon with multiple loops of tethered bowel. Rim enhancing fluid collection with internal punctate focus of gas within the right lower abdomen/upper pelvis, measuring 4.6 x 4.2 cm (series 2, image 82). Additional ill-defined areas of pericolonic fat stranding and fluid noted within the lower pelvis. No discrete small or large bowel mass visualized by CT examination. Lymph nodes: Prominent mesenteric and retroperitoneal nodes. Vasculature: Mild diffuse atherosclerotic calcifications are noted. Bones/soft tissues: Thoracolumbar spondylosis. No aggressive osseous lesions. Focal cutaneous thickening along the right lateral abdominal wall, likely a sebaceous cyst. CT/Abdomen/Pelvis WITH Contrast IMPRESSION: 1. Tethered large-bowel loops, with marked wall thickening, fat stranding and e nhancement, most compatible with occult colon cancer. No discrete bowel mass visualized by CT examination. 2. Bilateral pulmonary nodules, with the larger nodules demonstrating central a nubia of lucency/cavitation, compatible with primary lung neoplasm or metastatic disease. Infectious etiology is less likely. 3. 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 4. Intrapelvic abscess with additional areas of developing phlegmon as describe d. Dr. English discussed these findings with Dr. Sanchez via telephone at 8:43 pm o n 01/05/25. One or more dose reduction techniques were used (e.g., Automated exposure contr ol, adjustment of the mA and/or kV according to patient size, use of iterative reconstruction technique). Reading Location: [id number]
--- NOTE | 2025-01-05 17:47 | ED.VIS.GI ---
HPI HPI - GI History of Present Illness Chief Complaint: Abd Pain Detail of Chief Complaint: Abdominal pain Informant: patient and spouse/S.O. Narrative Narrative: Patient presents with abdominal pain that has had for at least 2 weeks. He states he has not had a bowel movement in 2 weeks but he has no appetite and eats very little. Has had decreased urine output. Describes pain to the right lower abdomen and suprapubic region. There is not been any blood in his stool or black tarry stool. He has lost 40 pounds in the last month. No prior abdominal surgeries. PFSH [facility] Medical History (Updated 01/05/25 @ 22:[address] Steph Byrd, DO) Atherosclerosis of other coronary artery bypass graft(s) with other forms of angina pectoris Atherosclerosis of coronary artery of [place] heart without angina pectoris Obesity Hyperlipidemia Abnormal stress test Hypertension Home Medications ?Medication ?Instructions ?Recorded ?Last Taken ?Type nitroglycerin 0.4 mg sublingual 0.4 mg sublingual Q5M PRN Chest 04/11/18 03/02/23 Rx tablet Pain #25 tabs furosemide 40 mg tablet (Lasix) 40 mg PO QDAY #30 tabs 04/12/18 03/02/23 Rx isosorbide mononitrate 120 mg 150 mg PO DAILY 04/16/18 03/02/23 History tablet,extended release 24 hr atorvastatin 80 mg tablet 80 mg PO QHS CHOLESTEROL #30 tabs 12/24/18 03/01/23 Rx amlodipine 5 mg tablet 5 mg PO DAILY 02/28/19 Unknown History aspirin 325 mg tablet 325 mg PO BID 02/28/19 03/02/23 History clopidogrel 75 mg tablet 75 mg PO DAILY 02/28/19 03/02/23 History ezetimibe 10 mg tablet 10 mg PO DAILY 02/28/19 03/02/23 History ranolazine 500 mg tablet,extended 500 mg PO BID 01/13/20 03/02/23 History release,12 hr carvedilol 25 mg tablet 25 mg PO BID HTN 03/02/23 03/02/23 History losartan 100 mg tablet 100 mg PO DAILY . 03/02/23 03/02/23 History hydrocodone-acetaminophen 5-325mg 1 tab PO Q6H PRN PRN Pain 3 days 09/02/23 Unknown Rx 5mg-325mg #10 TABLETS Allergy/AdvReac Type Severity Reaction Status Date / Time No Known Allergies Allergy Verified 01/05/25 15:38 Family History Father Heart disease Mother CVA (cerebral vascular accident) Surgical History History of left heart catheterization (04/17/18) Presence of aortocoronary bypass graft (~01/15/17) Social History household members: spouse Smoking Status: Current every day smoker tobacco type: cigarettes Tobacco: How many years used: 38 second hand exposure: Yes alcohol intake: current alcohol intake frequency: a few times a week Alcohol type: beer substance use type: does not use caffeine: No what type of physical activity do you participate in: other details: cardiac rehab frequency: 3-4 times per week ROS ROS ED Review of Systems ROS Unobtainable: other Constitutional Constitutional ED: Reports lethargy; Denies chills, fever(s), sweats or weight loss Eyes Eyes: Denies blurry vision, change in vision or diplopia ENT ENT ED: Denies rhinorrhea or sore throat Cardiovascular Cardiovascular: Denies chest pain, orthopnea or racing heartbeat Respiratory/Chest Respiratory/Chest: Denies cough, dyspnea, dyspnea on exertion, orthopnea or sputum Gastrointestinal Gastrointestinal: Reports abdominal pain and constipation; Denies diarrhea, nausea or vomiting Genitourinary Genitourinary ED: Denies dysuria, hematuria or urinary frequency Musculoskeletal Musculoskeletal: Denies arthralgias, back pain, myalgias or neck pain Integumentary Denies abscess, Abrasions or rash Neurologic Neurologic: Denies headache(s) or weakness Psychiatric Psychiatric: Denies anxiety, depression or suicidal thoughts Endocrine Endocrinology: Denies polydipsia, polyphagia or polyuria Hematologic/Lymphatic Hematologic/Lymphatic: Denies easy bleeding, easy bruising or lymphadenopathy Allergic/Immunologic Allergic/Immunologic ED: Denies mouth swelling, tongue swelling or urticaria EXAM Physical Exam Const Vital Signs: 01/05/25 15:33 01/05/25 19:00 Temperature 97.2 F L Temperature Source Temporal Pulse Rate 116 H 89 Respiratory Rate 16 18 Blood Pressure 178/96 H 154/81 H Blood Pressure Mean 123 105 Pulse Ox 98 98 Oxygen Delivery Method Room Air Room Air Positive well nourished and well developed General Appearance ED: well developed and NAD HEENT Reports TM's clear and moist mucous membranes normocephalic and atraumatic; Negative for trauma or tenderness Tympanic Membrane ED: Yes TM's clear Eyes PERRL and EOMs intact bilaterally General Eye ED: Negative for pale conjunctiva or scleral icterus Neck no lymphadenopathy, supple and no JVD General: Negative for tenderness Chest Wall inspection of chest normal and palpation of chest normal Chest: Negative for tenderness Resp normal respiratory effort and clear to auscultation bilaterally Effort and Inspection: Negative for respiratory distress or pain with movement Auscultation: Negative for rhonchi, wheezes or diminished lung sounds Cardio regular rate, regular rhythm, S1 normal heart sound, S2 normal heart sound and no murmurs Peripheral Pulses: pulses 2+ throughout GI normal to inspection, nondistended, normoactive bowel sounds, soft to palpation, non-distended and no masses GI Narrative: Diffuse tenderness over the right lower quadrant and suprapubic region with guarding. There is no rebound, rigidity, or peritoneal signs. He has a small infected sebaceous cyst noted over the right lower quadrant measuring approximately 2 cm in diameter with some surrounding cellulitic changes. Back/Spine no CVA tenderness and no thoracic nor lumbar tenderness Extremity normal to inspection General Extremety ED: Negative for edema General Extremity: Negative for edema Neuro oriented x3, CN's II-XII intact bilaterally, no sensory deficits noted and gait normal Sensorium / Orientation: awake, alert, oriented to person, oriented to place and oriented to time Motor Exam: strength 5/5 throughout and strength abnormal Psych mental status grossly normal Skin no rashes or lesions noted and no wounds MDM MDM MDM Narrative Medical decision making narrative: Patient presented with lower abdomen pain and weight loss. Significant tenderness over right lower quadrant suprapubic region. In the differential would be infectious etiology versus malignancy versus inflammatory bowel disease, appendicitis, perforated bowel, or other abnormality. CBC with differential obtained showed an elevated white count of 14.9 with hemoglobin 14.4 and platelet count of 346. Chemistries unremarkable. Lactate normal at 0.7. LFTs were normal. Lipase normal at 21. CT scan of the abdomen pelvis interpreted by radiology as possible metastasis or primary malignancy in the lung bases. 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 Concern for colonic mass. Discussed case with our general surgeon Dr. Christiansen who recommended transfer to tertiary center for colorectal evaluation. Discussed results with patient and his significant other who asked to be transferred to [facility]. Discussed case with [facility] as well as who both accepted transfer of patient to their emergency department. Patient will be transferred via local ambulance. Patient was started on Zosyn for the UTI. Urine culture sent. Lab Data Attestation: I reviewed the patient's lab results. Labs: Laboratory Results - last 24 hr 01/05/25 01/05/25 01/05/25 17:12 17:54 18:38 WBC 14.9 H RBC 4.51 L Hgb 14.4 Hct 42.1 MCV 93.3 MCH 31.9 MCHC 34.2 RDW Std Deviation 44.5 H RDW Coeff of Mark 13.1 Plt Count 346 MPV 9.1 Immature Gran % (Auto) 0.800 Neut % (Auto) 79.5 H Lymph % (Auto) 12.0 L [place] % (Auto) 5.7 Eos % (Auto) 1.5 Baso % (Auto) 0.5 Absolute Neuts (auto) 11.9 H Absolute Lymphs (auto) 1.80 Nucleated RBC % 0 Sodium 135 L Potassium 3.7 Chloride 102 Carbon Dioxide 28.0 Anion Gap 5 BUN 10 Creatinine 0.60 L Estim Creat Clear Calc 133.72 Est GFR (MDRD) Af Amer 175 Est GFR (MDRD) Non-Af 145 BUN/Creatinine Ratio 16.6 Glucose 110 H Lactic Acid 0.7 Calcium 8.6 Total Bilirubin 0.30 AST 18 ALT 28 Alkaline Phosphatase 61 Total Protein 6.9 Albumin 2.4 L Globulin 4.5 H Albumin/Globulin Ratio 0.5 L Lipase 21 L Urine Color Yellow Urine Clarity Cloudy Urine pH 7.0 Ur Specific [place] 1.010 Urine Protein 100 H Urine Glucose (UA) Normal Urine Ketones 15 H Urine Occult Blood 250 H Urine Nitrite Negative Urine Bilirubin Negative Urine Urobilinogen 4 H Ur Leukocyte Esterase 500 H Urine RBC 10-25 SEEN Urine WBC >100 SEEN Ur Squamous Epith Cells 0-5 SEEN Urine Bacteria 4+ Urine Mucus 0 SEEN Radiography Diagnostic Testing: Clinical Impression(s) from Imaging Studies Abdomen/Pelvis CT 01/05/25 17:46 IMPRESSION: 1. Tethered large-bowel loops, with marked wall thickening, fat stranding and enhancement, most compatible with occult colon cancer. No discrete bowel mass visualized by CT examination. 2. Bilateral pulmonary nodules, with the larger nodules demonstrating central area of lucency/cavitation, compatible with primary lung neoplasm or metastatic disease. Infectious etiology is less likely. 3. 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 4. Intrapelvic abscess with additional areas of developing phlegmon as described. Dr. English discussed these findings with Dr. Sanchez via telephone at 8:43 pm on 01/05/25. One or more dose reduction techniques were used (e.g., Automated exposure control, adjustment of the mA and/or kV according to patient size, use of iterative reconstruction technique). Reading Location: [id number] Discharge Plan Triage Chief Complaint: Abd Pain ED Provider: Steph Byrd Dx/Rx/DC Orders Clinical Impression: Abdominal pain, Colonic fistula, Acute UTI, Gastrointestinal malignancy Prescriptions: No Action furosemide [Lasix] 40 mg tablet 40 mg PO QDAY Qty: 30 11RF isosorbide mononitrate 120 MG tablet 150 mg PO DAILY amlodipine 5 MG tablet 5 mg PO DAILY ezetimibe 10 MG tablet 10 mg PO DAILY clopidogrel 75 MG tablet 75 mg PO DAILY aspirin 325 MG tablet 325 mg PO BID ranolazine 500 MG tablet 500 mg PO BID carvedilol 25 mg tablet 25 mg PO BID Patient Comments: TAKE 1 TABLET BY MOUTH TWICE DAILY losartan 100 mg tablet 100 mg PO DAILY Patient Comments: TAKE 1 TABLET BY MOUTH ONCE DAILY hydrocodone-acetaminophen 5-325 mg tablet 1 tab PO Q6H PRN PRN (Reason: Pain) 3 Days Qty: 10 0RF nitroglycerin 0.4 mg tablet, sublingual 0.4 mg SUBLINGUAL Q5M PRN (Reason: Chest Pain) Qty: 25 3RF atorvastatin 80 mg tablet 80 mg PO QHS Qty: 30 11RF Primary Care Provider: Nelson Boone Referrals: Nelson Boone MD [Primary Care Provider] - Print Language: Armenian Disposition Disposition: DC/Tx to Another Type of HCF
[2025-01-05] MEDS: 0.9% Normal Saline (1000mL) 1,000 ML 999 ML IV (17:54)
--- NOTE | 2025-01-05 18:00 | ED.RN ---
Radiology requesting patient to drink oral contrast within 30 minutes and will be scanned 1 hour after. Patient states I should have just stayed at home. manager technology states what did you say? Patients states its his way of saying he doesn't want to do it and laughs after. Rn states you don't have to drink it if you don't want to but it will help unit assistant us some answers. Patient states just give me this shit. RN states it is not necessary to be mean to her. she is just trying to do her job. patient begins drink oral contrast
[2025-01-05 18:08] LABS: Absolute Neutrophil Count 11.9 X10^3/uL (2.0-7.7); Basophil# 0.08 X10^3/uL; Basophil% 0.5 % (0-1); Eosinophil# 0.22 X10^3/uL; Eosinophils% 1.5 % (0-5); Hematocrit 42.1 % (40-54); Hemoglobin 14.4 g/dL (13.0-16.5); Mean Corp Hgb Conc 34.2 g/dL (32-36); Mean Corpuscular Hgb 31.9 pg (27.0-32.0); Mean Corpuscular Volume 93.3 fL (80-94); Mean Platelet Vol. 9.1 fl (6.2-12.0); Monocyte# 0.85 X10^3/uL; Monocyte% 5.7 % (0-10); NRBC Flagged by Analyzer 0 % (0-5); Neutrophil # 11.87 X10^3/uL (2.7-7.7); Neutrophil % 79.5 % (47-70); Platelet Count 346 K/mm3 (150-450); RBC Distribution Width CV 13.1 % (11.6-14.6); RBC Distribution Width SD 44.5 fl (35.1-43.9); Red Blood Count 4.51 M/mm3 (4.6-6.2); White Blood Count 14.9 K/mm3 (4.4-11.0)
[2025-01-05 18:12] LABS: Lipase 21 U/L (73-393)
[2025-01-05 18:37] LABS: Lactic Acid 0.7 mmol/L (0.4-1.9)
[2025-01-05 18:58] LABS: Glucose, Dipstick Normal (Normal); Ketone-Dipstick 15 mg/dl (Negative); Leukocyte Esterase-Dipstick 500 /ul (Negative); Nitrite-Dipstick Negative (Negative); Occult Blood-Urine 250 /ul (Negative); Protein-Dipstick 100 mg/dl (Negative); Urine Bilirubin Dipstick Negative (Negative); Urine Urobilinogen 4 mg/dl (Normal)
[2025-01-05 19:00] VITALS: BP 154/81; PULSE 89; RESP 18; O2SAT 98
[2025-01-05 19:23] LABS: Color, Urine Yellow (Yellow); Urine Clarity Cloudy (Clear)
[2025-01-05 19:35] LABS: Bacteria 4+ /hpf (None Seen); Red Blood Cells-Urine 10-25 SEEN /hpf (0-5); Squamous Epithelial Cells - UA 0-5 SEEN /hpf (0-5); White Blood Cells >100 SEEN /hpf (0-5)
[2025-01-05 19:36] LABS: Mucous, Urine 0 SEEN /hpf (<or=2+)
[2025-01-05] MEDS: Piperacil/Tazobactam 4.5 GM in 0.9% Normal Saline (100mL MB+) 100 ML IV (20:22)
[2025-01-05 21:00] VITALS: BP 167/82; PULSE 89; RESP 18; O2SAT 98
[2025-01-05 23:00] VITALS: BP 170/87; PULSE 96; RESP 18; O2SAT 98
[2025-01-05 23:12] VITALS: BP 170/87; PULSE 96; RESP 18; TEMP 37.2; O2SAT 98
--- NOTE | 2025-01-05 23:49 | ED.RN ---
This RN gave report to SAAD Darden at [facility], at this time.
== END 2025-01-05 23:35 | disposition other institution (70) ==
PROVIDERS: Emergency Provider Emergency Medicine; PCP Family Medicine; Visit Provider Emergency Medicine
DX: R10.31 Right lower quadrant pain (principal); C26.9 Malignant neoplasm of ill-defined sites within the digestive system; N39.0 Urinary tract infection, site not specified; I25.10 Atherosclerotic heart disease of native coronary artery without angina pectoris; E78.5 Hyperlipidemia, unspecified; K63.2 Fistula of intestine; F17.210 Nicotine dependence, cigarettes, uncomplicated; I10 Essential (primary) hypertension; Z79.899 Other long term (current) drug therapy; Z79.82 Long term (current) use of aspirin
CPT/HCPCS: 74177; 80053; 81001; 83605; 83690; 85025; 87077; 87086; 87088; 87186; 96361; 96365; 99284; Q9967; A4216

== ENCOUNTER → 2025-01-22 | Outpatient (CLI) | payer MEDICARE, MEDICAID, SELFPAY ==
[2025-01-13 15:35] VITALS: BMI 32.8
[2025-01-22 09:29] LABS: International Normalized Ratio 1.1; Partial Thromboplast Time 26.2 Seconds (24.1-36.2); Prothrombin Time (Protime)PT. 14.1 SECONDS (11.7-14.9)
--- NOTE | 2025-01-22 10:07 | NURSING ---
Dr. Germain brought pt and SO, Libby, into reading room for consultation prior to biopsy. Pt was shown images; risks and benefits of procedure were discussed. Pt decided to forgo the procedure. Dr. Dow' office was made aware.
== END | disposition home or self-care (01) ==
PROVIDERS: PCP Family Medicine; Referring Provider Internal Medicine Hematology & Oncology; Visit Provider Internal Medicine Hematology & Oncology
DX: Z01.818 Encounter for other preprocedural examination (principal); C20 Malignant neoplasm of rectum; R91.8 Other nonspecific abnormal finding of lung field
CPT/HCPCS: 36415; 85610; 85730